=== PATIENT | female | born 1935 | race Caucasian/White ===

== ENCOUNTER → 2017-09-30 12:48 | Outpatient (CLI) | payer MEDICARE, SELFPAY ==
--- NOTE | 2017-09-30 | DI.MG.S_ITS ---
BILATERAL DIGITAL SCREENING MAMMOGRAM 3D/2D WITH CAD: 09/30/2017 CLINICAL: Routine screening. Comparison is made to exams dated: 09/05/2016 mammogram, 09/05/2015 mammogram - [facility], and 10/25/2013 mammogram - [facility]. There are scattered fibroglandular elements in both breasts. Current study was also evaluated with a Computer Aided Detection (CAD) system. There is possible architectural distortion in the left breast upper outer aspect middle depth. No other significant masses, calcifications, or other findings are seen in either breast. IMPRESSION: INCOMPLETE: NEEDS ADDITIONAL IMAGING EVALUATION The possible architectural distortion in the left breast is indeterminate. Additional views with possible ultrasound are recommended. This exam was interpreted at Station ID: [id number]. NOTE: For mammograms, a report in lay terms will be sent to the patient. Approximately 15% of breast malignancies will not be visualized mammographically. In the management of a palpable breast mass, a negative mammogram must not discourage biopsy of a clinically suspicious lesion. Electronically Signed By: Cayetano bose/jemma:09/30/2017 19:12:49 letter sent: Additional Imaging Needed ACR BI-RADS Category 0: Incomplete 3340F
== END ==
PROVIDERS: PCP Family Medicine; Visit Provider Family Medicine
DX: Z12.31 Encounter for screening mammogram for malignant neoplasm of breast (principal)
CPT/HCPCS: 77063; 77067

== ENCOUNTER → 2017-10-20 12:45 | Outpatient (CLI) | payer MEDICARE, SELFPAY ==
--- NOTE | 2017-10-20 12:47 | DI.MG.S_ITS ---
UNILATERAL LEFT DIGITAL DIAGNOSTIC MAMMOGRAM 3D/2D WITH ADDITIONAL VIEWS: 10/20/2017 CLINICAL: Additional evaluation requested from prior study. Comparison is made to exams dated: 09/30/2017 mammogram, 09/05/2016 mammogram, and 09/05/2015 mammogram - [facility]. There are scattered fibroglandular elements in the left breast. There is a linear scar marker overlying the upper outer aspect of the left breast at middle depth. This appears to directly overly the previously noted possible architectural distortion in the left breast upper outer aspect middle depth seen on screening mammograms. No other significant masses, calcifications, or other findings are seen in the breast. IMPRESSION: INCOMPLETE: NEEDS ADDITIONAL IMAGING EVALUATION Linear scar marker directly overlies the previously noted possible architectual distortion in the left breast upper outer aspect at middle depth; distortion may be secondary to scarring. A targeted ultrasound is recommended and will be performed immediately following this procedure. This exam was interpreted at Station ID: [id number]. NOTE: For mammograms, a report in lay terms will be sent to the patient. Approximately 15% of breast malignancies will not be visualized mammographically. In the management of a palpable breast mass, a negative mammogram must not discourage biopsy of a clinically suspicious lesion. Electronically Signed By: Cayetano Thomas M.D. ecl/:10/20/2017 13:41:23 letter sent: Additional Imaging Needed ACR BI-RADS Category 0: Incomplete 3340F
--- NOTE | 2017-10-20 12:47 | DI.US.S_ITS ---
ULTRASOUND OF LEFT BREAST: 10/20/2017 CLINICAL: Patient returns today to evaluate a focal asymmetry in the left breast. Comparison is made to exams dated: 10/20/2017 mammogram, 09/30/2017 mammogram, 09/05/2016 mammogram, and 09/05/2015 mammogram - [facility]. Real-time and Doppler ultrasound of the left breast were performed. Gavin scale images of the real-time examination were reviewed. There is scarring of the upper outer left breast at the site of the scar marker, correlating with the possible architectural distortion seen on screening mammogram. There is no associated recurrent or persistent mass. There are also irregular serpiginous avascular simple fluid collections in the upper outer left breast, measuring up to 2.2 cm in size. IMPRESSION: BENIGN 1) There is no sonographic evidence of malignancy in the left breast. Return to annual mammogram screening schedule is recommended. 2) Scarring of the upper outer left breast, without focal mass. 3) Irregular avascular serpiginous fluid collections in the upper outer left breast, measuring up to 2.2 cm in size; these may represent cysts or chronic postsurgical seromas. This exam was interpreted at Station ID: [id number]. Electronically Signed By: Cayetano Thomas M.D. ecl/:10/20/2017 14:59:50 letter sent: Clinical Evaluation Ultrasound BI-RADS: 2 Benign
== END ==
PROVIDERS: PCP Family Medicine; Visit Provider Family Medicine
DX: R92.8 Other abnormal and inconclusive findings on diagnostic imaging of breast (principal); L90.5 Scar conditions and fibrosis of skin
CPT/HCPCS: 76642; 77065; G0279

== ENCOUNTER → 2018-06-10 09:39 | Outpatient (CLI) | payer MEDICARE, SELFPAY ==
[2018-06-10 10:51] LABS: Alanine Aminotransferase 28 IU/L (9-52); Albumin 4.5 g/dL (3.5-5.0); Albumin Globulin Ratio 1.9 (1.0-2.8); Alkaline Phosphatase 67 U/L (38-126); Aspartate Aminotransferase 22 IU/L (14-36); BUN Creatinine Ratio 16.3 (6-22); Bilirubin Total 0.4 mg/dL (0.2-1.3); Blood Urea Nitrogen 13 mg/dL (7-17); Calcium 10.2 mg/dL (8.4-10.2); Carbon Dioxide 30 mmol/L (22-32); Chloride 103 mmol/L (98-107); Cholesterol 193 mg/dL (140-199); Estimated Glomerular Filt Rate > 60.0 mL/min (>60); Globulin 2.4 g/dL (1.7-4.1); Glucose 109 mg/dL (80-110); HDL Cholesterol 63 mg/dL (40-60); HEMOLYSIS < 15 (0-50); LDL Cholesterol Calculated 101 mg/dL (<100); Potassium 4.8 mmol/L (3.4-5.1); Sodium 142 mmol/L (137-145); Total Protein 6.9 g/dL (6.3-8.2); Triglycerides 143 mg/dL (35-150)
== END ==
PROVIDERS: PCP Family Medicine; Visit Provider Family Medicine
DX: E78.5 Hyperlipidemia, unspecified (principal); R73.03 Prediabetes; I10 Essential (primary) hypertension
CPT/HCPCS: 36415; 80053; 80061

== ENCOUNTER → 2018-12-30 11:56 | Outpatient (CLI) | payer MEDICARE, SELFPAY ==
--- NOTE | 2018-12-30 | DI.MG.S_ITS ---
BILATERAL DIGITAL SCREENING MAMMOGRAM 3D/2D WITH CAD: 12/30/2018 CLINICAL: Baseline exam. Routine screening. Comparison is made to exams dated: 09/30/2017 mammogram, 09/05/2016 mammogram, and 09/05/2015 mammogram - [facility]. There are scattered fibroglandular elements in both breasts. Current study was also evaluated with a Computer Aided Detection (CAD) system. There is architectural distortion in the left breast at 3 o'clock middle depth. This is more prominent. No other significant masses, calcifications, or other findings are seen in either breast. IMPRESSION: INCOMPLETE: NEEDS ADDITIONAL IMAGING EVALUATION The architectural distortion in the left breast is more prominent but is still favored to represent a previous biopsy and is indeterminate. Scar markers and additional views with possible ultrasound are recommended. This exam was interpreted at Station ID: [id number]. NOTE: For mammograms, a report in lay terms will be sent to the patient. Approximately 15% of breast malignancies will not be visualized mammographically. In the management of a palpable breast mass, a negative mammogram must not discourage biopsy of a clinically suspicious lesion. Electronically Signed By: Patrick Enriquez M.D. aty/:12/30/2018 18:37:29 letter sent: Additional Imaging Needed ACR BI-RADS Category 0: Incomplete 3340F
== END ==
PROVIDERS: PCP Family Medicine; Visit Provider Family Medicine
DX: Z12.31 Encounter for screening mammogram for malignant neoplasm of breast (principal)
CPT/HCPCS: 77063; 77067

== ENCOUNTER → 2019-01-19 14:14 | Outpatient (CLI) | payer MEDICARE, SELFPAY ==
--- NOTE | 2019-01-19 14:24 | DI.MG.S_ITS ---
UNILATERAL LEFT DIGITAL DIAGNOSTIC MAMMOGRAM 3D/2D WITH ADDITIONAL VIEWS: 01/19/2019 CLINICAL: Additional evaluation requested from prior study. Comparison is made to exams dated: 12/30/2018 mammogram, 10/20/2017 mammogram, and 09/05/2016 mammogram - [facility]. There are scattered fibroglandular elements in left breast. There is a stable architectural distortion in the left breast at 3 o'clock middle depth when compared with prior diagnostic mammographic views. No other significant masses or calcifications are seen in the breast. IMPRESSION: The stable architectural distortion in the left breast is consistent with a previous biopsy site and is benign. There is no mammographic evidence of malignancy. A 1 year screening mammogram is recommended. This exam was interpreted at Station ID: [id number]. NOTE: For mammograms, a report in lay terms will be sent to the patient. Approximately 15% of breast malignancies will not be visualized mammographically. In the management of a palpable breast mass, a negative mammogram must not discourage biopsy of a clinically suspicious lesion. Electronically Signed By: Donna Olsen M.D. lk/:01/19/2019 15:45:10 letter sent: Normal Exam ACR BI-RADS Category 2: Benign Finding(s) 3342F
== END ==
PROVIDERS: PCP Family Medicine; Visit Provider Family Medicine
DX: R92.8 Other abnormal and inconclusive findings on diagnostic imaging of breast (principal)
CPT/HCPCS: 77065; G0279

== ENCOUNTER → 2019-02-16 11:03 | Outpatient (CLI) | payer MEDICARE, SELFPAY ==
[2019-02-16 12:45] LABS: Alanine Aminotransferase 16 IU/L (<35); Albumin 4.5 g/dL (3.5-5.0); Albumin Globulin Ratio 1.9 (1.0-2.8); Alkaline Phosphatase 77 U/L (38-126); Aspartate Aminotransferase 24 IU/L (14-36); BUN Creatinine Ratio 17.1 (6-22); Bilirubin Total 0.5 mg/dL (0.2-1.3); Blood Urea Nitrogen 12 mg/dL (7-17); Calcium 10.4 mg/dL (8.4-10.2); Carbon Dioxide 31 mmol/L (22-32); Chloride 103 mmol/L (98-107); Estimated Glomerular Filt Rate > 60.0 mL/min (>60); Globulin 2.4 g/dL (1.7-4.1); Glucose 86 mg/dL (80-110); HEMOLYSIS < 15 (0-50); Potassium 4.7 mmol/L (3.4-5.1); Sodium 143 mmol/L (137-145); Total Protein 6.9 g/dL (6.3-8.2)
[2019-02-16 13:32] LABS: Vitamin B12 835 pg/mL (239-931)
[2019-02-18 16:39] LABS: Homocysteine 12.7 umol/L (< 10.4)
[2019-02-21 04:00] LABS: Methylmalonic Acid 287 nmol/L (87-318)
== END ==
PROVIDERS: PCP Family Medicine; Visit Provider Family Medicine
DX: E53.8 Deficiency of other specified B group vitamins (principal); I10 Essential (primary) hypertension; R41.3 Other amnesia
CPT/HCPCS: 36415; 80053; 82607; 83090; 83921

== ENCOUNTER 2019-04-07 13:00 | Outpatient (RCR) | payer MEDICARE, SELFPAY ==
--- NOTE | 2019-03-29 17:30 | PT.OIE ---
Current Diagnoses Benign paroxysmal vertigo, unspecified ear (03/29/19) Dizziness and giddiness (03/29/19) Past Medical History (Last Reviewed 12/28/18 @ 14:18 by ASAD Chow) Basal cell carcinoma of skin (Resolved ~2010) Chickenpox (Resolved) Dementia (Chronic ~2010) Glaucoma (Resolved) Hearing loss (Chronic) Hyperlipidemia (Chronic) Measles (Resolved) Melanoma of nose (Resolved ~2010) Memory loss Mumps (Resolved) Obstructive sleep apnea of adult (Chronic) Snoring (Chronic) Vision abnormalities (Chronic) Past Surgical History (Last Reviewed 12/28/18 @ 14:18 by ASAD Chow) Anesthesia (Inactive) History of lumpectomy (~1999) Mohs defect of nose (Resolved ~2010) Status post hysterectomy (~1977) Visit Care Team Role Provider Type Jayna Cardona DO Attending Provider Physician Primary Care Provider Specialty: [facility] Address: [address] [place] [address], [address], [facility] Email: [email or web address] Physical Therapy Initial Evaluation PT-OP-A Visit Information Start: 03/29/19 17:46 Freq: Status: Active Protocol: Document 03/29/19 16:45 DCW (Rec: 03/29/19 18:01 DCW [id number]) Out-Patient Physical Therapy Visit Information Visit Information Visit Type Initial Evaluation Visit Start Time 16:45 Visit Stop Time 17:35 Total Visit Minutes 50 Visit Number 1 Number of PEDIATRIC ANESTHESIOLOGIST Visits 0 Evaluation Information Evaluation Date 03/29/19 PT-OP-B Current Condition Start: 03/29/19 17:46 Freq: Status: Active Protocol: Document 03/29/19 16:45 DCW (Rec: 03/29/19 18:01 DCW [id number]) Current Condition History of Current Condition Onset Date a few weeks Current Complaints Twirlies with positional changes History of Current Condition Pt is an 83 year old female complaining of a few month history of motion-induced vertigo. Pt reports episodes last a few minutes. Symptoms are provoked by changing positions, like getting up in bed and getting to the bathroom, or lying back in bed . Pt denies recent hearing changes, tinnitus, diplopia, dysarthria, discoordination. Pt reports symptoms are waxing /waning in nature. Pt denies hx of diabetes, arrhythmia, head trauma, seizure, migraines, back/neck problems, CVA, or excessive smoking or drinking. Pt does suffer from Alzheimer's disease, and her helped answer many of her questions. Pt also has a very hard time describing her symptoms due to mild confusion and memory loss. Pt and her also describe a different incident where she was eating dinner with her daughter and son-in-law, and she experienced an episode of poorly described symptoms just sitting at the table, she may have had a syncopal or pre- syncopal event, or just been dizzy, and leaned over in her chair, without going to the floor. Unclear if pt actually had LOC. PT-OP-C Subjective Start: 03/29/19 17:46 Freq: Status: Active Protocol: Document 03/29/19 16:45 DCW (Rec: 03/29/19 18:01 [facility] [id number]) OP-PT Subjective Patient Comments Patient Comments I don't know, I think I'm better now, I don't really know if I've had any dizziness the past few days. Patient Reported Progress Improving Patient Questionnaires Dizziness Handicap Inventory DHI Score 52% DHI Functional Impairment 40 to 59% Impaired (Score 40- 59) OP-PT Pain Assessment Pain Assessment Grid Paper Pain Assessment Grid Completed N/A PT-OP-O Vestibular Start: 03/29/19 17:46 Freq: Status: Active Protocol: Document 03/29/19 16:45 DCW (Rec: 03/29/19 18:01 [facility] [id number]) Vestibular Assessment Screening Tests Vestibular Artery Screen Negative Auditory Tests Ocampo Test Negative Rinne Test Negative Air Conduction Results Equal Visual Testing Smooth Pursuits Horizontal WNL Smooth Pursuits Vertical WNL Saccades Horizontal WNL Gaze Evoked Nystagmus With Fixation Negative Gaze Evoked Nystagmus Without Fixation Negative Heave Test Positive Bilateral Thrust Head Positive Bilateral Positional Testing Era-Hallpike Positive Left,Positive Right,< 60 Seconds Comments Vestibular Comments Pt complained of vague symptoms in Era-Hallpike position bilaterally, with right being much more severe than left. No nystagmus noted with her symptoms. Pt reported dizziness faded -66 seconds PT-OP-Q Treatments Start: 03/29/19 17:46 Freq: Status: Active Protocol: Document 03/29/19 16:45 DCW (Rec: 03/30/19 09:39 DCW [id number]) Canalithic Repositioning BPPV Treatment Robe Affected Canal(s) Right posterior PT-OP-T Assessment and Plan Start: 03/29/19 17:46 Freq: Status: Active Protocol: Document 03/29/19 16:45 DCW (Rec: 03/30/19 09:39 DCW [id number]) Physical Therapy Assessment Rehab Potential Rehabilitation Potential Good Evaluation Complexity Number of Personal Factors/Comorbidities 3 or More Number of Body Systems Impaired 1-2 Clinical Presentation at Evaluation Unstable Impairments Impairments Balance,Functional Mobility, Vestibular Goals Two Impairment Pt has difficulty getting to the bathroom during the night d/t unsteadiness Half-Way Goal (LTG) Pt to demonstrate ability to walk independently to bathroom at night with no sensation of imbalance LTG Duration 04/30/19 One Impairment Pt has periodic episodes of dizziness moving in bed Half-Way Goal (LTG) Pt to report no episodes of dizziness or vertigo with positional changes LTG Duration 04/30/19 Assessment Summary Assessment Pt's vestibular testing today was largely negative, with the exception of mildly positive thrust and heave test bilaterally, which is expected with age-related vestibular loss, and subjective complaints of dizziness in Era -Hallpike position bilaterally , although there was no associated nystagmus. Her right-sided testing with substantially worse than her left with her subjective complaints. Pt's verbal history is fairly suggestive of BPPV, and since some patients are able to subconsciously suppress nystagmus, pt underwent treatment for BPPV. As the posterior canal is by far much more likely to be affected with positional vertigo, pt underwent a right Robe maneuver. Due to pt's Alzheimer's disease, her reporting and description of symptoms were somewhat confusing and unreliable. Pt and her were educated on BPPV, expectations for treatment, possible recurrence (BPPV has a ~50% recurrence rate in the five years following treatment), and post -Robe restrictions. Pt to return in ~1 week for a follow -up appointment, and intermittently afterward as indicated for treatment of BPPV. Physical Therapy Plan Frequency and Duration Frequency of Treatment 2x/Week Duration of Treatment 8 weeks Plan of Care Start Date 03/29/19 Plan of Care End Date 05/24/19 Therapeutic Interventions Therapeutic Interventions Balance Training,Canalithic Repositioning,Therapeutic Exercises,Vestibular Rehabilitation Next Visit Focus/Plan Next Note Type Treatment Note Next Visit Plan Further positional testing, CRM as indicated, balance training as needed
--- NOTE | 2019-03-29 17:30 | PT.OPPOC ---
Physical, Occupational & Speech Therapy At [facility] Current Diagnoses Benign paroxysmal vertigo, unspecified ear (03/29/19) Dizziness and giddiness (03/29/19) Visit Care Team Role Provider Type Jayna Cardona DO Attending Provider Physician Primary Care Provider Specialty: [facility] Address: [address] [place] [address], [address], [facility] Email: [email or web address] Plan Of Care PT-OP-T Assessment and Plan Start: 03/29/19 17:46 Freq: Status: Active Protocol: Document 03/29/19 16:45 DCW (Rec: 03/30/19 09:39 DCW [id number]) Physical Therapy Assessment Rehab Potential Rehabilitation Potential Good Evaluation Complexity Number of Personal Factors/Comorbidities 3 or More Number of Body Systems Impaired 1-2 Clinical Presentation at Evaluation Unstable Impairments Impairments Balance,Functional Mobility, Vestibular Goals Two Impairment Pt has difficulty getting to the bathroom during the night d/t unsteadiness [facility] Goal (LTG) Pt to demonstrate ability to walk independently to bathroom at night with no sensation of imbalance LTG Duration 04/30/19 One Impairment Pt has periodic episodes of dizziness moving in bed [facility] Goal (LTG) Pt to report no episodes of dizziness or vertigo with positional changes LTG Duration 04/30/19 Assessment Summary Assessment Pt's vestibular testing today was largely negative, with the exception of mildly positive thrust and heave test bilaterally, which is expected with age-related vestibular loss, and subjective complaints of dizziness in Norberto -Hallpike position bilaterally , although there was no associated nystagmus. Her right-sided testing with substantially worse than her left with her subjective complaints. Pt's verbal history is fairly suggestive of BPPV, and since some patients are able to subconsciously suppress nystagmus, pt underwent treatment for BPPV. As the posterior canal is by far much more likely to be affected with positional vertigo, pt underwent a right Robe maneuver. Due to pt's Alzheimer's disease, her reporting and description of symptoms were somewhat confusing and unreliable. Pt and her were educated on BPPV, expectations for treatment, possible recurrence (BPPV has a ~50% recurrence rate in the five years following treatment), and post -Robe restrictions. Pt to return in ~1 week for a follow -up appointment, and intermittently afterward as indicated for treatment of BPPV. Physical Therapy Plan Frequency and Duration Frequency of Treatment 2x/Week Duration of Treatment 8 weeks Plan of Care Start Date 03/29/19 Plan of Care End Date 05/24/19 Therapeutic Interventions Therapeutic Interventions Balance Training,Canalithic Repositioning,Therapeutic Exercises,Vestibular Rehabilitation Next Visit Focus/Plan Next Note Type Treatment Note Next Visit Plan Further positional testing, CRM as indicated, balance training as needed Plan of Care Dates Plan of Care Start Date 03/29/19 Plan of Care End Date 05/24/19 Electronically Signed by: Jose Ramon Cervantes, PT 03/30/19 0941 Please Sign and Return: I have reviewed this Plan of Care and certify that the skilled therapy services above are required to meet the patient?s needs. Physician Signature Date Printed Name and Credentials Clinical Instructor Signature Printed Name and Credentials
--- NOTE | 2019-04-05 13:00 | PT.OTN ---
Current Diagnoses Benign paroxysmal vertigo, unspecified ear (04/05/19) Dizziness and giddiness (04/05/19) Physical Therapy Treatment Note PT-OP-A Visit Information Start: 03/29/19 17:46 Freq: Status: Active Protocol: Document 04/05/19 13:00 DLM (Rec: 04/05/19 14:07 DLM [id number]) Out-Patient Physical Therapy Visit Information Visit Information Visit Type Treatment Note Visit Start Time 13:00 Visit Stop Time 13:46 Total Visit Minutes 46 Visit Number 2 Number of SUPERVISORY AIDE Visits 0 Evaluation Information Evaluation Date 03/29/19 PT-OP-B Current Condition Start: 03/29/19 17:46 Freq: Status: Active Protocol: Document 03/29/19 16:45 DCW (Rec: 03/29/19 18:01 DCW [id number]) Current Condition History of Current Condition Onset Date a few weeks Current Complaints Twirlies with positional changes History of Current Condition Pt is an 83 year old female complaining of a few month history of motion-induced vertigo. Pt reports episodes last a few minutes. Symptoms are provoked by changing positions, like getting up in bed and getting to the bathroom, or lying back in bed . Pt denies recent hearing changes, tinnitus, diplopia, dysarthria, discoordination. Pt reports symptoms are waxing /waning in nature. Pt denies hx of diabetes, arrhythmia, head trauma, seizure, migraines, back/neck problems, CVA, or excessive smoking or drinking. Pt does suffer from Alzheimer's disease, and her helped answer many of her questions. Pt also has a very hard time describing her symptoms due to mild confusion and memory loss. Pt and her also describe a different incident where she was eating dinner with her daughter and son-in-law, and she experienced an episode of poorly described symptoms just sitting at the table, she may have had a syncopal or pre- syncopal event, or just been dizzy, and leaned over in her chair, without going to the floor. Unclear if pt actually had LOC. PT-OP-C Subjective Start: 03/29/19 17:46 Freq: Status: Active Protocol: Document 04/05/19 13:00 DLM (Rec: 04/05/19 14:07 DLM [id number]) OP-PT Subjective Patient Comments Patient Comments Pt reports her swirling is better. Her Daughter reports she still had dizziness in bed before getting up. No difficulties reported after last visit. Pt describes feeling weak today. Her Daughter asks if there are some exercises she can do at home. Patient Reported Progress Improving PT-OP-O Vestibular Start: 03/29/19 17:46 Freq: Status: Active Protocol: Document 03/29/19 16:45 DCW (Rec: 03/29/19 18:01 DCW [id number]) Vestibular Assessment Screening Tests Vestibular Artery Screen Negative Auditory Tests Ocampo Test Negative Rinne Test Negative Air Conduction Results Equal Visual Testing Smooth Pursuits Horizontal WNL Smooth Pursuits Vertical WNL Saccades Horizontal WNL Gaze Evoked Nystagmus With Fixation Negative Gaze Evoked Nystagmus Without Fixation Negative Heave Test Positive Bilateral Thrust Head Positive Bilateral Positional Testing Squires-Hallpike Positive Left,Positive Right,< 60 Seconds Comments Vestibular Comments Pt complained of vague symptoms in Squires-Hallpike position bilaterally, with right being much more severe than left. No nystagmus noted with her symptoms. Pt reported dizziness faded -41 seconds PT-OP-Q Treatments Start: 03/29/19 17:46 Freq: Status: Active Protocol: Document 04/05/19 13:00 DLM (Rec: 04/05/19 14:07 DL [id number]) Therapeutic Exercises Sitting Exercises Shoulder Flexion Side bilateral Reps/Minutes x 10 reps each Marching Side bilateral Reps/Minutes x 10 reps each Knee Extension Side bilateral Reps/Minutes x 10 reps each Ankle Pumps Side bilateral Reps/Minutes 10 reps each Canalithic Repositioning BPPV Treatment Semont Affected Canal(s) right horizontal Reps 1 Robe Affected Canal(s) Right posterior Reps 2 PT-OP-T Assessment and Plan Start: 03/29/19 17:46 Freq: Status: Active Protocol: Document 04/05/19 13:00 DLM (Rec: 04/05/19 14:07 DL [id number]) Physical Therapy Assessment Impairments Impairments Balance,Functional Mobility, Vestibular Goals Two Impairment Pt has difficulty getting to the bathroom during the night d/t unsteadiness [facility]iary Goal (LTG) Pt to demonstrate ability to walk independently to bathroom at night with no sensation of imbalance LTG Duration 04/30/19 One Impairment Pt has periodic episodes of dizziness moving in bed [facility]itentiary Goal (LTG) Pt to report no episodes of dizziness or vertigo with positional changes LTG Duration 04/30/19 Progress Towards Goals Progress Towards Goals Progressing Toward Goals Assessment Summary Assessment 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 Pt reports having symptoms less often at home. She also had dizziness with nystagmus right sit to sidelying today and none with left sit to sidelying. She tolerated treatment well with short rest breaks. She could benefit from starting seated exercises at home to increase her activity without increasing her fall risk. Her Daughter reports they purchased a 4WW for her but have not assembled it yet. They also purchased a treadmill but are waiting for patients Son to visit to assemble it. Pt presents with mild decreased balance when ambulating out of therapy this visit which appears related to her vestibular treatment. Will need to retest for BPPV next visit. Physical Therapy Plan Frequency and Duration Frequency of Treatment 2x/Week Duration of Treatment 8 weeks Plan of Care Start Date 03/29/19 Plan of Care End Date 05/24/19 Therapeutic Interventions Therapeutic Interventions Balance Training,Canalithic Repositioning,Therapeutic Exercises,Vestibular Rehabilitation Next Visit Focus/Plan Next Note Type Treatment Note Next Visit Plan continue vestibular rehab, add balance training as tolerated
--- NOTE | 2019-04-07 13:00 | PT.OTN ---
Current Diagnoses Benign paroxysmal vertigo, unspecified ear (04/07/19) Dizziness and giddiness (04/07/19) Physical Therapy Treatment Note PT-OP-A Visit Information Start: 03/29/19 17:46 Freq: Status: Active Protocol: Document 04/07/19 13:00 DLM (Rec: 04/07/19 18:10 DLM [id number]) Out-Patient Physical Therapy Visit Information Visit Information Visit Type Treatment Note Visit Start Time 13:00 Visit Stop Time 13:44 Total Visit Minutes 44 Visit Number 3 Number of COMPENSATION PROGRAMS MANAGER Visits 0 Evaluation Information Evaluation Date 03/29/19 Precautions Precautions Cognitive impairments PT-OP-B Current Condition Start: 03/29/19 17:46 Freq: Status: Active Protocol: Document 03/29/19 16:45 DCW (Rec: 03/29/19 18:01 DCW [id number]) Current Condition History of Current Condition Onset Date a few weeks Current Complaints Twirlies with positional changes History of Current Condition Pt is an 83 year old female complaining of a few month history of motion-induced vertigo. Pt reports episodes last a few minutes. Symptoms are provoked by changing positions, like getting up in bed and getting to the bathroom, or lying back in bed . Pt denies recent hearing changes, tinnitus, diplopia, dysarthria, discoordination. Pt reports symptoms are waxing /waning in nature. Pt denies hx of diabetes, arrhythmia, head trauma, seizure, migraines, back/neck problems, CVA, or excessive smoking or drinking. Pt does suffer from Alzheimer's disease, and her helped answer many of her questions. Pt also has a very hard time describing her symptoms due to mild confusion and memory loss. Pt and her also describe a different incident where she was eating dinner with her daughter and son-in-law, and she experienced an episode of poorly described symptoms just sitting at the table, she may have had a syncopal or pre- syncopal event, or just been dizzy, and leaned over in her chair, without going to the floor. Unclear if pt actually had LOC. PT-OP-C Subjective Start: 03/29/19 17:46 Freq: Status: Active Protocol: Document 04/07/19 13:00 DLM (Rec: 04/07/19 18:10 DLM [id number]) OP-PT Subjective Patient Comments Patient Comments She reports no twirling today. She c/o feeling tired. Her Spouse reports she has been tired a lot lately. Yesterday she was less steady walking and needed hand hold assist to walk in the house. She is walking better today. Patient Reported Progress Improving PT-OP-O Vestibular Start: 03/29/19 17:46 Freq: Status: Active Protocol: Document 04/07/19 13:00 DLM (Rec: 04/07/19 18:10 DLM [id number]) Vestibular Assessment Positional Testing [place]-Hallpike Negative Left,Negative Right Sidelying Test Negative Left,Negative Right Comments Vestibular Comments mild dizziness reported during testing but no spinning and no nystagmus observed PT-OP-Q Treatments Start: 03/29/19 17:46 Freq: Status: Active Protocol: Document 04/07/19 13:00 DLM (Rec: 04/07/19 18:10 DLM [id number]) Therapeutic Exercises Sitting Exercises Shoulder Flexion Side bilateral Reps/Minutes x 10 reps each Marching Side bilateral Reps/Minutes x 10 reps each Knee Extension Side bilateral Reps/Minutes x 10 reps each Ankle Pumps Side bilateral Reps/Minutes 10 reps each Canalithic Repositioning BPPV Treatment [place] Affected Canal(s) right horizontal, left horizontal Reps 1 each Robe Affected Canal(s) right posterior, left posterior Reps 1 each Comments modified over pillows PT-OP-T Assessment and Plan Start: 03/29/19 17:46 Freq: Status: Active Protocol: Document 04/07/19 13:00 DLM (Rec: 04/07/19 18:10 DLM [id number]) Physical Therapy Assessment Other Concerns Fall Risk needs SBA or assist throughout visit Age Related Concerns fall risk, cognitive deficits, She has Spouse or other family member with her each visit Goals Two Impairment Pt has difficulty getting to the bathroom during the night d/t unsteadiness Dye Mixer Goal (LTG) Pt to demonstrate ability to walk independently to bathroom at night with no sensation of imbalance LTG Duration 04/30/19 One Impairment Pt has periodic episodes of dizziness moving in bed Dye Mixer Goal (LTG) Pt to report no episodes of dizziness or vertigo with positional changes LTG Duration 04/30/19 Progress Towards Goals Progress Towards Goals Progressing Toward Goals Assessment Summary Assessment Her dizziness is improved this visit. BPPV testing is negative and improved from last visit. Family reports her ability to walk has been varying at home. They plan to start sitting ex at home but pt does not typically like to exercise at home. Spouse reports plan for cardiac testing in near future. Pt has no other appointments scheduled at this time. Her Spouse reports they want to follow-up with primary care physician and monitor her dizziness before deciding on more appointments. Requested he call to inform us if they want to discharge PT. She has tolerated vestibular repositioning well. She could benefit from more balance retraining. Physical Therapy Plan Frequency and Duration Frequency of Treatment 2x/Week Duration of Treatment 8 weeks Plan of Care Start Date 03/29/19 Plan of Care End Date 05/24/19 Therapeutic Interventions Therapeutic Interventions Balance Training,Canalithic Repositioning,Therapeutic Exercises,Vestibular Rehabilitation Next Visit Focus/Plan Next Note Type Treatment Note Next Visit Plan her Spouse to call after follow-up with physician, discharge if dizziness has not returned, resume treatment if dizziness re-occurs, pt could also return for more balance training is desired by family
--- NOTE | 2019-09-16 08:30 | PT.OPDS ---
Current Diagnoses Benign paroxysmal vertigo, unspecified ear (04/07/19) Visit Care Team Role Provider Type Jayna Cardona DO Attending Provider Physician Primary Care Provider Specialty: [facility] Address: [address] [place] [address], [facility] [address], [place], [facility] Email: [email or web address] Visit Number Visit Number 3 Discharge Summary PT-OP-B Current Condition Start: 03/29/19 17:46 Freq: Status: Active Protocol: Document 03/29/19 16:45 DCW (Rec: 03/29/19 18:01 DCW [id number]) Current Condition History of Current Condition Onset Date a few weeks Current Complaints Twirlies with positional changes History of Current Condition Pt is an 83 year old female complaining of a few month history of motion-induced vertigo. Pt reports episodes last a few minutes. Symptoms are provoked by changing positions, like getting up in bed and getting to the bathroom, or lying back in bed . Pt denies recent hearing changes, tinnitus, diplopia, dysarthria, discoordination. Pt reports symptoms are waxing /waning in nature. Pt denies hx of diabetes, arrhythmia, head trauma, seizure, migraines, back/neck problems, CVA, or excessive smoking or drinking. Pt does suffer from Alzheimer's disease, and her helped answer many of her questions. Pt also has a very hard time describing her symptoms due to mild confusion and memory loss. Pt and her also describe a different incident where she was eating dinner with her daughter and son-in-law, and she experienced an episode of poorly described symptoms just sitting at the table, she may have had a syncopal or pre- syncopal event, or just been dizzy, and leaned over in her chair, without going to the floor. Unclear if pt actually had LOC. PT-OP-C Subjective Start: 03/29/19 17:46 Freq: Status: Active Protocol: Document 04/07/19 13:00 DLM (Rec: 04/07/19 18:10 DLM [id number]) OP-PT Subjective Patient Comments Patient Comments She reports no twirling today. She c/o feeling tired. Her Spouse reports she has been tired a lot lately. Yesturday she was less steady walking and needed hand hold assist to walk in the house. She is walking better today. Patient Reported Progress Improving PT-OP-O Vestibular Start: 03/29/19 17:46 Freq: Status: Active Protocol: Document 04/07/19 13:00 DLM (Rec: 04/07/19 18:10 DLM [id number]) Vestibular Assessment Positional Testing [place]-Hallpike Negative Left,Negative Right Sidelying Test Negative Left,Negative Right Comments Vestibular Comments mild dizziness reported during testing but no spinning and no nystagmus observed PT-OP-T Assessment and Plan Start: 03/29/19 17:46 Freq: Status: Active Protocol: Document 09/16/19 08:28 DCW (Rec: 09/16/19 08:29 DCW [id number]) Physical Therapy Assessment Assessment Summary Assessment Pt has not been seen in five months, was doing well at her last visit, no longer had ongoing complaints of positional dizziness. Pt will be discharged from skilled PT at this time. Physical Therapy Plan Discharge Physical Therapy Discharge Reasons No Longer Attending PT Next Visit Focus/Plan Next Note Type Discharge Summary
== END 2019-09-16 13:03 ==
LOC: PHYS 13:00
PROVIDERS: PCP Family Medicine; Visit Provider Family Medicine
DX: H81.10 Benign paroxysmal vertigo, unspecified ear (principal)
CPT/HCPCS: 95992; 97110; 97161

== ENCOUNTER → 2019-04-14 10:32 | Outpatient (CLI) | payer MEDICARE, SELFPAY ==
--- NOTE | 2019-04-29 16:07 | PM.CARDMON.1 ---
Filament Coil Winder Report Referral & Results Date Patient Seen: 04/14/19 Requesting provider: Jayna Cardona Indication: Syncope Duration of monitoring (days): 7 Diary information: There were 3 patient triggered events and 2 patient diary entries These events were associated with sinus rhythm, ventricular bigeminy, PVCs, and atrial fibrillation Data: Minimum heart rate identified was 44 beats per minute at 03:11 on 04/16/2019 Maximum sinus heart rate was 119 beats per minute at 14:18 on 04/20/2019 Maximum overall heart rate was 242 beats per minute at 01:59 on 04/17/2019 during a run of atrial fibrillation Less than 1% of identified beats were supraventricular ectopic in origin Approximately 21% of identified beats were ventricular ectopic in origin including a 3 minutes run of ventricular trigeminy Less than 2% of identified beats occurred during atrial fibrillation. Rate during atrial fibrillation range from 102 beats per minute to 242 beats per minute. The longest run of atrial fibrillation lasted 1 hour 45 minutes There is also a single 5 beat run of ventricular tachycardia Impression: 7 day threat monitoring analyst showing episodes of atrial fibrillation as above. Also some significant ventricular dysrhythmias as above with frequent PVCs and 1 run of ventricular tachycardia at 5 beats Clinical correlation suggested
== END ==
PROVIDERS: PCP Family Medicine; Referring Provider Family Medicine; Visit Provider Family Medicine
DX: R55 Syncope and collapse (principal)
CPT/HCPCS: 0296T; 0298T

== ENCOUNTER → 2019-04-29 13:21 | Outpatient (CLI) | payer MEDICARE, SELFPAY ==
[2019-04-29 14:35] LABS: Add Manual Diff / Slide Review NO; Basophils Absolute Auto 0 /uL (0-100); Basophils Percent Auto 0.4 % (0-2); Eosinophils Absolute Auto 100 /uL (0-450); Lymphocytes Absolute Auto 800 /uL (1100-4500); Lymphocytes Percent Auto 13.7 % (25-40); Mean Corpuscular HGB Conc 34.2 % (30-36); Mean Corpuscular Volume 90.7 fL (80-100); Monocytes Absolute Auto 400 /uL (0-900); Monocytes Percent Auto 6.7 % (3-14); Neutrophils Absolute Auto 4700 /uL (1500-7000); Neutrophils Percent Auto 78.2 % (50-75); Platelet Count 219 X10^3/uL (150-400); Red Blood Cell Count 4.85 X10^6/uL (4.0-5.2); Red Cell Distribution Width 13.4 % (11.6-14.8)
[2019-04-29 14:49] LABS: BUN Creatinine Ratio 18.8 (6-22); Blood Urea Nitrogen 15 mg/dL (7-17); Calcium 9.5 mg/dL (8.4-10.2); Carbon Dioxide 28 mmol/L (22-32); Chloride 101 mmol/L (98-107); Estimated Glomerular Filt Rate > 60.0 mL/min (>60); Glucose 110 mg/dL (80-110); HEMOLYSIS < 15 (0-50); Potassium 3.2 mmol/L (3.4-5.1); Sodium 140 mmol/L (137-145)
[2019-04-29 14:54] LABS: Appearance Urine UA SL CLOUDY; Bilirubin Urine UA NEGATIVE (NEGATIVE); Color Urine UA YELLOW; Glucose Urine UA NEGATIVE (Negative); Ketones Urine UA TRACE (NEGATIVE); Leukocyte Esterase Urine UA 1+ (NEGATIVE); Nitrite Urine UA NEGATIVE (Negative); Occult Blood Urine UA 1+ (Negative); Protein Urine UA TRACE (Negative); Urobilinogen Urine UA 0.2 E.U./dL (0.2)
[2019-04-29 14:56] LABS: pH Urine UA 5.5 (4.5-8.0)
[2019-04-29 15:02] LABS: Bacteria Urine Moderate (10-30); Culture Indicated Urine Cult Not Indicated; Mucus Urine 1+ (Negative); RBC Urine 1-5/HPF (0-5/HPF); Squamous Epithelial Cell Urine 10-30 /HPF (0-5/HPF); WBC Urine 5-10/HPF (0-5/HPF)
== END ==
PROVIDERS: PCP Family Medicine; Referring Provider Family Medicine; Visit Provider Family Medicine
DX: I10 Essential (primary) hypertension (principal); R55 Syncope and collapse; R58 Hemorrhage, not elsewhere classified; R31.9 Hematuria, unspecified
CPT/HCPCS: 36415; 80048; 81003; 81015; 85025

== ENCOUNTER → 2019-05-25 15:45 | Outpatient (CLI) | payer MEDICARE, SELFPAY ==
--- NOTE | 2019-05-25 16:08 | DI.ECHO.S_ITS ---
Echocardiogram Report + + :Name: HIRA WHITTAKER Study Date: 05/25/2019 Height: 62 in : :[facility] Weight: 135 lb : : Gender: Female BSA: 1.6 m2 : :: 1935 Age: 83 yrs BP: 138/86 mmHg: :Reason For Study: Arrythmia, new onset Afib : :Ordering Physician: Suresh : :Brendan Performed By: Anusha Stern : :Referring: SURESH POTRER : + + Interpretation Summary The left ventricle is normal in size, wall thickness, and systolic function without any focal wall motion abnormalities with the ejection fraction visually estimated to be 60-65%. Diastolic parameters suggest probable normal left ventricular diastolic function and normal filling pressures. The right ventricle grossly appears normal in size with probable normal systolic function. Pulmonary artery pressures cannot be estimated because of the lack of a measurable TR jet velocity. Both atria are normal in size. There is no significant valvular heart disease. There is no pericardial effusion but there is an anterior echo-free space consistent with a pericardial fat pad which is a normal variant. The patient was likely in sinus rhythm with heart rates between 45-71 bpm with frequent ectopy noted throughout exam. Procedure: A two-dimensional transthoracic echocardiogram with color flow and Doppler was performed. The study quality was technically adequate. There is no prior echocardiogram noted for this patient. The subcostal views were difficult to obtain and are suboptimal in quality. The patient was in sinus rhythm with heart rates between 45-71 bpm during the exam. Frequent ectopy noted throughout exam. Left Ventricle: The left ventricle is normal in size, wall thickness, and systolic function without any focal wall motion abnormalities. The ejection fraction is estimated to be 60-65%. Diastolic parameters suggest probable normal left ventricular diastolic function and normal filling pressures. Right Ventricle: The right ventricle grossly appears normal in size with probable normal systolic function. Atria: Both atria are normal in size. There is no Doppler evidence for an interatrial shunt. Mitral Valve: The mitral valve leaflets appear mildly thickened, but open well. There is a flat closure plane of the the mitral valve leaflets. There is trace mitral regurgitation. Aortic Valve: The aortic valve is trileaflet. The aortic valve is slightly calcified. The aortic valve opens well. There is no aortic valve stenosis. There is trace aortic regurgitation. Tricuspid Valve: The tricuspid valve is not well visualized, but is grossly normal. There is trace tricuspid regurgitation. Pulmonary artery pressures cannot be estimated because of the lack of a measurable TR jet velocity. Pulmonic Valve: The pulmonic valve is normal in structure and function. There is trace pulmonic regurgitation. There is no significant valvular heart disease. Great Vessels: The aortic root is normal size. The ascending aorta is normal in size. The inferior vena cava was not visualized. Pericardium/ Pleura There is an anterior echo-free space consistent with a fat pad. There is no pericardial effusion. There is no pleural effusion. MMode/2D Measurements & Calculations LVIDd: 3.8 cm LVOT diam: 2.0 cm LVIDs: 2.3 cm Ao root diam: 2.8 cm FS: 39.3 % asc Aorta Diam: 2.9 cm EPSS: 0.38 cm Ao Arch Diam (Prox Trans): 2.6 cm IVSd: 0.88 cm LVPWd: 0.92 cm LV valle. diameter/BSA (cm/m^2): 2.4 LV sys. diameter/BSA (cm/m^2): 1.4 LA A2 area: 12.0 cm2 RA long axis: 4.5 cm LA A4 area: 13.5 cm2 RA area: 14.4 cm2 LA length (vol): 4.9 cm RA vol: 39.5 ml LA vol: 27.9 ml RA : 24.4 ml/m2 LA vol index: 17.2 ml/m2 RVD1 (basal): 3.2 cm TAPSE: 2.0 cm Doppler Measurements & Calculations Ao V2 max: 136.8 cm/sec LVOT Max Rad: 105.3 cm/sec Ao V2 mean: 81.0 cm/sec LV V1 max P.4 mmHg Ao max P.5 mmHg LV V1 VTI: 27.1 cm Ao mean P.2 mmHg JOHN(I,D): 3.1 cm2 Ao V2 VTI: 27.6 cm JOHN(V,D): 2.5 cm2 sev ratio: 0.98 JOHN indexed to BSA (cm^2/m^2): 1.9 MV E max rad: 76.4 cm/sec TR max rad: 256.1 cm/sec MV A max rad: 108.8 cm/sec TR max P.4 mmHg MV E/A: 0.70 PA V2 max: 72.7 cm/sec Med Peak E' Rad: 6.0 cm/sec PA V2 mean: 48.4 cm/sec E/E' med: 12.7 PA mean P.1 mmHg Lat Peak E' Rad: 7.4 cm/sec E/E' lat: 10.4 E/e' average: 11.6 MV dec time: 0.25 sec MV P1/2t: 73.7 msec MV P1/2t max rad: 78.2 cm/sec SV(LVOT): 87.1 ml MVA(2t): 3.0 cm2 _ Reading Physician:RADHA
== END ==
PROVIDERS: PCP Family Medicine; Referring Provider Family Medicine; Visit Provider Family Medicine
DX: I48.91 Unspecified atrial fibrillation (principal)
CPT/HCPCS: 93306

== ENCOUNTER → 2019-07-14 12:42 | Outpatient (CLI) | payer MEDICARE, SELFPAY ==
[2019-07-14 13:31] LABS: BUN Creatinine Ratio 14.3 (6-22); Blood Urea Nitrogen 10 mg/dL (7-17); Calcium 10.3 mg/dL (8.4-10.2); Carbon Dioxide 28 mmol/L (22-32); Chloride 99 mmol/L (98-107); Estimated Glomerular Filt Rate > 60.0 mL/min (>60); Glucose 102 mg/dL (80-110); HEMOLYSIS < 15 (0-50); Magnesium 1.8 mg/dL (1.6-2.3); Potassium 4.5 mmol/L (3.4-5.1); Sodium 137 mmol/L (137-145)
== END ==
PROVIDERS: PCP Family Medicine; Referring Provider Family Medicine; Visit Provider Family Medicine
DX: E87.6 Hypokalemia (principal); I10 Essential (primary) hypertension
CPT/HCPCS: 36415; 80048; 83735

== ENCOUNTER → 2019-08-11 17:12 | Outpatient (CLI) | payer MEDICARE, SELFPAY ==
[2019-08-11 18:07] LABS: Alanine Aminotransferase 15 IU/L (<35); Albumin 4.5 g/dL (3.5-5.0); Albumin Globulin Ratio 1.6 (1.0-2.8); Alkaline Phosphatase 74 U/L (38-126); Aspartate Aminotransferase 22 IU/L (14-36); BUN Creatinine Ratio 17.9 (6-22); Bilirubin Total 0.3 mg/dL (0.2-1.3); Blood Urea Nitrogen 15 mg/dL (7-17); Calcium 10.3 mg/dL (8.4-10.2); Carbon Dioxide 31 mmol/L (22-32); Chloride 102 mmol/L (98-107); Estimated Glomerular Filt Rate > 60.0 mL/min (>60); Globulin 2.8 g/dL (1.7-4.1); Glucose 126 mg/dL (80-110); HEMOLYSIS < 15 (0-50); Potassium 3.9 mmol/L (3.4-5.1); Sodium 139 mmol/L (137-145); Total Protein 7.3 g/dL (6.3-8.2)
[2019-08-11 18:38] LABS: Thyroid Stimulating Hormone 1.43 uIU/mL (0.47-4.68)
== END ==
PROVIDERS: PCP Family Medicine; Referring Provider Nurse Practitioner; Visit Provider Nurse Practitioner
DX: I48.0 Paroxysmal atrial fibrillation (principal)
CPT/HCPCS: 36415; 80053; 84443

== ENCOUNTER → 2020-01-25 10:12 | Outpatient (CLI) | payer MEDICARE, SELFPAY ==
--- NOTE | 2020-01-25 | DI.MG.S_ITS ---
BILATERAL DIGITAL SCREENING MAMMOGRAM 3D/2D WITH CAD: 01/25/2020 CLINICAL: Routine screening. Comparison is made to exams dated: 01/19/2019 mammogram, 12/30/2018 mammogram, 10/20/2017 mammogram, 09/30/2017 mammogram, and 09/05/2016 mammogram - [facility]. There are scattered fibroglandular elements in both breasts. Current study was also evaluated with a Computer Aided Detection (CAD) system. There are benign post operative findings in the left breast. No significant masses, calcifications, or other findings are seen in either breast. There has been no significant interval change. IMPRESSION: BENIGN There is no mammographic evidence of malignancy. A 1 year screening mammogram is recommended. This exam was interpreted at Station ID: [id number]. NOTE: For mammograms, a report in lay terms will be sent to the patient. Approximately 15% of breast malignancies will not be visualized mammographically. In the management of a palpable breast mass, a negative mammogram must not discourage biopsy of a clinically suspicious lesion. Electronically Signed By: Donna maravilla/jemma:01/31/2020 12:08:34 letter sent: Normal Exam ACR BI-RADS Category 2: Benign Finding(s) 3342F
== END ==
PROVIDERS: PCP Family Medicine; Referring Provider Family Medicine; Visit Provider Family Medicine
DX: Z12.31 Encounter for screening mammogram for malignant neoplasm of breast (principal)
CPT/HCPCS: 77063; 77067

== ENCOUNTER → 2020-01-30 09:21 | Outpatient (CLI) | payer MEDICARE, SELFPAY ==
[2020-01-30 09:54] LABS: Add Manual Diff / Slide Review NO; Basophils Absolute Auto 0 /uL (0-100); Basophils Percent Auto 0.7 % (0-2); Eosinophils Absolute Auto 100 /uL (0-450); Eosinophils Percent Auto 2.3 % (2-4); Hematocrit 40.8 % (36-46); Hemoglobin 13.6 g/dL (12.0-16.0); Lymphocytes Absolute Auto 1200 /uL (1100-4500); Lymphocytes Percent Auto 18.5 % (25-40); Mean Corpuscular HGB Conc 33.3 % (30-36); Mean Corpuscular Hemoglobin 30.7 PG (26-34); Mean Corpuscular Volume 92.1 fL (80-100); Monocytes Absolute Auto 600 /uL (0-900); Monocytes Percent Auto 9.4 % (3-14); Neutrophils Absolute Auto 4400 /uL (1500-7000); Neutrophils Percent Auto 69.1 % (50-75); Platelet Count 219 X10^3/uL (150-400); Red Blood Cell Count 4.43 X10^6/uL (4.0-5.2); Red Cell Distribution Width 13.6 % (11.6-14.8); White Blood Cell Count 6.3 X10^3/uL (4.5-11.0)
[2020-01-30 10:25] LABS: Alanine Aminotransferase 21 IU/L (<35); Albumin 3.9 g/dL (3.5-5.0); Albumin Globulin Ratio 1.3 (1.0-2.8); Alkaline Phosphatase 69 U/L (38-126); Aspartate Aminotransferase 24 IU/L (14-36); BUN Creatinine Ratio 15.7 (6-22); Bilirubin Total 0.5 mg/dL (0.2-1.3); Blood Urea Nitrogen 13 mg/dL (7-17); Calcium 9.3 mg/dL (8.4-10.2); Carbon Dioxide 32 mmol/L (22-32); Chloride 106 mmol/L (98-107); Cholesterol 177 mg/dL (140-199); Estimated Glomerular Filt Rate > 60.0 mL/min (>60); Globulin 2.9 g/dL (1.7-4.1); Glucose 130 mg/dL (80-110); HDL Cholesterol 60 mg/dL (40-60); HEMOLYSIS < 15 (0-50); LDL Cholesterol Calculated 93 mg/dL (<100); Potassium 3.7 mmol/L (3.4-5.1); Sodium 141 mmol/L (137-145); Total Protein 6.8 g/dL (6.3-8.2); Triglycerides 122 mg/dL (35-150)
[2020-01-30 10:52] LABS: TSH w/ Reflex to FT4 1.34 uIU/mL (0.47-4.68)
[2020-01-30 11:47] LABS: Creatinine Urine Random 82.4 mg/dL
[2020-01-30 11:59] LABS: Microalbumin Urine Random < 0.6 mg/dL (0-1.6)
== END ==
PROVIDERS: PCP Family Medicine; Referring Provider Family Medicine; Visit Provider Family Medicine
DX: I10 Essential (primary) hypertension (principal); R73.03 Prediabetes; E78.5 Hyperlipidemia, unspecified
CPT/HCPCS: 36415; 80053; 80061; 82043; 82570; 84443; 85025

== ENCOUNTER → 2020-03-19 13:35 | Outpatient (CLI) | payer MEDICARE, SELFPAY ==
[2020-03-19 14:10] LABS: Hemoglobin A1C% w Est Avg Glu 6.2 % (4.0-6.0)
== END ==
PROVIDERS: PCP Family Medicine; Referring Provider Family Medicine; Visit Provider Family Medicine
DX: E66.3 Overweight (principal); R73.03 Prediabetes
CPT/HCPCS: 36415; 83036

== ENCOUNTER → 2020-03-30 13:00 | Outpatient (CLI) | payer MEDICARE, SELFPAY ==
[2020-03-30] MEDS: COVID-19 VACC #1, MRNA(MOD) 100 MCG/0.5 ML VIAL IM (13:20)
== END ==
PROVIDERS: PCP Family Medicine; Visit Provider Internal Medicine
DX: Z23 Encounter for immunization (principal)
CPT/HCPCS: 0011A; 91301

== ENCOUNTER → 2020-04-27 12:50 | Outpatient (CLI) | payer MEDICARE, SELFPAY ==
[2020-04-27] MEDS: COVID-19 VACC #2, MRNA(MOD) 100 MCG/0.5 ML VIAL IM (13:00)
== END ==
PROVIDERS: PCP Family Medicine; Visit Provider Internal Medicine
DX: Z23 Encounter for immunization (principal)
CPT/HCPCS: 0012A; 91301

== ENCOUNTER → 2020-06-22 14:57 | Outpatient (CLI) | payer MEDICARE, SELFPAY ==
--- NOTE | 2020-06-22 14:59 | DI.RAD.S_ITS ---
PROCEDURE: XR KNEE RT 3V INDICATIONS: right knee pain TECHNIQUE: 3 views of the knee were acquired. COMPARISON: None. FINDINGS: Bones: No fractures or dislocations. No suspicious bony lesions. Tricompartmental knee joint degeneration, most notably and moderate to severe involving the medial femorotibial and patellofemoral knee joints. Soft tissues: Small joint effusion. No suspicious soft tissue calcifications. IMPRESSION: Tricompartmental knee joint degeneration and small joint effusion. Dictated by: Vance Elizabeth [facility] Interpreted: Sushil Taylor MD on 06/22/2020 at 15:44 Approved by: Sushil Taylor M.D. on 06/22/2020 at 16:04
== END ==
PROVIDERS: PCP Family Medicine; Referring Provider Family Medicine; Visit Provider Family Medicine
DX: M25.561 Pain in right knee (principal); M17.11 Unilateral primary osteoarthritis, right knee; M25.461 Effusion, right knee
CPT/HCPCS: 73562

== ENCOUNTER → 2020-09-04 14:10 | Outpatient (CLI) | payer MEDICARE, SELFPAY ==
[2020-09-04 15:49] LABS: BUN Creatinine Ratio 16.4 (6-22); Blood Urea Nitrogen 12 mg/dL (7-17); Calcium 10.1 mg/dL (8.4-10.2); Carbon Dioxide 28 mmol/L (22-32); Chloride 102 mmol/L (98-107); Estimated Glomerular Filt Rate > 60.0 mL/min (>60); Glucose 95 mg/dL (80-110); HEMOLYSIS < 15 (0-50); Potassium 4.1 mmol/L (3.4-5.1); Sodium 140 mmol/L (137-145)
== END ==
PROVIDERS: Physician Assistant; PCP Family Medicine; Referring Provider Internal Medicine Cardiovascular Disease; Visit Provider Internal Medicine Cardiovascular Disease
DX: I48.0 Paroxysmal atrial fibrillation (principal)
CPT/HCPCS: 36415; 80048

== ENCOUNTER 2020-10-11 12:15 | Outpatient (RCR) | payer MEDICARE, SELFPAY ==
--- NOTE | 2020-10-09 15:59 | PT.OIE ---
Current Diagnoses Unspecified fall, initial encounter (10/09/20) Past Medical History (Last Updated 06/22/20 @ 20:21 by Jayna Cardona DO) Basal cell carcinoma of skin (~2010) Chickenpox Chronic anticoagulation Dementia (~2010) Glaucoma Hearing loss Hyperlipidemia Measles Melanoma of nose (~2010) Memory loss Meningioma Mumps Obstructive sleep apnea of adult Pre-syncope Snoring Vision abnormalities Past Surgical History (Last Reviewed 05/08/20 @ 21:31 by ASAD Liu) Anesthesia History of lumpectomy (~1999) Mohs defect of nose (~2010) Status post hysterectomy (~1977) Visit Care Team Role Provider Type Jayna Cardona DO Attending Provider Physician Family Provider Primary Care Provider Referring Provider Specialty: Family Practice Address: [address] [place] [address], [address], [facility] Email: [email or web address] Physical Therapy Initial Evaluation PT-OP-A Visit Information Start: 10/05/20 10:44 Freq: Status: Active Protocol: Document 10/09/20 13:00 MB (Rec: 10/09/20 13:28 MB [id number]) Out-Patient Physical Therapy Visit Information Visit Information Visit Type Initial Evaluation Visit Note [employer] 03/20 before KX Visit Start Time 13:00 Visit Stop Time 14:00 Total Visit Minutes 60 Visit Number 1 Evaluation Information Evaluation Date 10/09/20 PT-OP-B Current Condition Start: 10/05/20 10:44 Freq: Status: Active Protocol: Document 10/09/20 13:00 MB (Rec: 10/09/20 13:28 [id number]) Current Condition History of Current Condition Onset Date Progressive over several weeks Current Complaints Leg pain, lethargy, decreased mobility History of Current Condition Pt's daughter, Ilsa, arrives with patient. She states that pt's needs have changed since she saw Dr. Cardona. Pt has had three falls in the last two weeks and the EMS has had to come twice to help pt get up. Pt lives with her . She got a rollator and is not using it. It is too fast for her. Pt has dementia. Ilsa is going to her parents twice a week to help for 4 hours and she has caregiver support on Fridays. The caregivers will help with showers, laundry and sheets. Daughter assists with meals and gives caregiver support. She was trying to help the pt with walking and sit to stands and that is not going as well. Her energy level is getting low. She is sleeping late and is not always getting dressed. Daughter reports AD dx 7 years ago, sleep apnea and a-fib. The CPAP has been challenging and she has not been wearing it. When asked, pt reports right knee pain. Dr. Cardona gave pt a shot in her right knee. There are two stairs with 1 rail to get in and out of the house. She holds onto daughter 's arm with gait. They do have a w/c. Her assists pt to BR at night when she needs to toilet. Ilsa states that today is an average day for the patient. Daughter reports that pt is complaining of pain in the belly. No known history of UTI . Ilsa reports progressive decreased ambulation of pt. Four years ago, pt could walk around the block. Pt had 4 sessions of OT in the home last spring. Daughter reports B knee pain d/t arthritis. PT-OP-C Subjective Start: 10/05/20 10:44 Freq: Status: Active Protocol: Document 10/09/20 13:00 MB (Rec: 10/09/20 13:28 MB [id number]) OP-PT Subjective Patient Comments Patient Comments Pt has no comments and daughter, Ilsa, provides all history. PT-OP-D Balance Start: 10/05/20 10:44 Freq: Status: Active Protocol: Document 10/09/20 13:00 MB (Rec: 10/09/20 15:58 MB [id number]) OP-PT Balance Assessment Sitting Balance Static Sitting Balance Ability Good Dynamic Sitting Balance Ability Fair Sitting Balance Comments UE support for MMT sitting edge of mat Standing Balance Static Standing Balance Ability Poor Dynamic Standing Balance Ability Poor Standing Balance Comments Pt reaches for objects, does not seem to process stand up and appears to wait for PT or daughter offering arm to perform moving to standing Balance Tests Other Other Balance Tests Performed LOB with static standing with normal BANDAR, forward, flexed posture Murillo Fall Scale Copyright Permission PT-OP-G Mobility & Gait Start: 10/05/20 10:44 Freq: Status: Active Protocol: Document 10/09/20 13:00 MB (Rec: 10/09/20 15:58 MB [id number]) OP Mobility Evaluation Bed Mobility Rolling Max A to help roll and get positioned well on her back on the mat Supine to and from Sit As above, cues for movement Transfers Sit to Stand Min A and cues OP Gait Assessment Gait Gait Assistance Required: 1 Person Assist Distance (Feet) 65 Assistive Devices Assistive Device None,Front Wheeled Walker Orthotic/Prosthetic Devices or Brace: No Gait Deviations General Gait Pattern Decreased Stride Length, Decreased Feet Clearance, Festinating,Flexed Trunk,Step- to Gait,Wide Based Gait Factors Limiting Gait Function Factors Limiting Gait Function Abnormal Tonal Influences, Decreased Activity Tolerance, Difficulty Following Directions,Incoordination, Limited Range of Motion,Pain, Poor Balance,Poor Safety Awareness Comments Gait Comments Pt sitting in chair in waiting room upon arrival and cannot get up without min A from PT. She holds onto daughter while PT gets RW for pt to try. With walker, she is confused and tends to scuff right toes, has wide BANDAR, does not clear right foot and her gait is festinating and she especially slows down around corner. 50' gait with RW and her pattern does not improve and she does not appear to understand or have recall for how to keep feet inside RW. Cues and min A to help with position and for scooting walker back to plinth before assessment in supine. Next, PT and daughter offer support via arm and pt's gait is pretty similar, with a lot of trouble crossing thresholds and different surface--from casie to carpet, into entrance and outside. PT-OP-J Posture/Palpation/Skin Start: 10/05/20 10:44 Freq: Status: Active Protocol: Document 10/09/20 13:00 MB (Rec: 10/09/20 15:58 MB [id number]) Posture Evaluation Comments Posture Comments Right knee has degenerative appearing changes and looks different that the left. She has mild B LE edema. PT-OP-K Range of Motion Start: 10/05/20 10:44 Freq: Status: Active Protocol: Document 10/09/20 13:00 MB (Rec: 10/09/20 15:58 MB [id number]) Shoulder Goniometric Range of Motion Shoulder ROM Limitations Comments Gross ROM only to pt's tolerance and right shoulder flexion is mildly less than the left Ankle and Foot Goniometric Range of Motion Ankle and Foot ROM Limitations Comments R PF clonus with quick passive DF that is not true on the left, increased tone right ankle PT-OP-M Strength Start: 10/05/20 10:44 Freq: Status: Active Protocol: Document 10/09/20 13:00 MB (Rec: 10/09/20 15:58 MB [id number]) Knee Strength Knee Manual Muscle Testing Bilateral Flexion (S2) 3+ Fair+ Extension (L3) 4 Good Ankle/Foot Strength Ankle and Foot Manual Muscle Testing Left Dorsiflexion (L4) 4 Good Right Dorsiflexion (L4) 3+ Fair+ PT-OP-Q Treatments Start: 10/05/20 10:44 Freq: Status: Active Protocol: Document 10/09/20 13:00 MB (Rec: 10/09/20 15:58 MB [id number]) Gait Training Gait Activity Gait with SUPERVISOR SCREEN MAKING and RW Comments See gait assessment comments for training today--training with RW is not successful today and cognitive limitations are biggest barrier to training Self-Care/Home Management Treatment Education Caregiver Education Ed pt and daughter, Ilsa, in difficulties of teaching AD use in patients with dementia, PT's concerns about pt's right LE weakness, less attention, foot clearance and increased tone, ed daughter to speak with father about pt more likely having difficulty crossing thresholds and when casie changes, to look for any trouble with swallowing ( pt has no trouble drinking water with PT today), signs and symptoms of stroke and risk factors given a-fib and not wearing her CPAP, signs and symptoms of neurodegenerative processes like PD, signs and symptoms of UTI, possible talking with doctor about being screened for depression and possible intervention. Benefits of having pt assessed and treated for BPPV if needed during PT course. PT-OP-T Assessment and Plan Start: 10/05/20 10:44 Freq: Status: Active Protocol: Document 10/09/20 13:00 MB (Rec: 10/09/20 15:58 MB [id number]) Physical Therapy Assessment Rehab Potential Rehabilitation Potential Fair Evaluation Complexity Number of Personal Factors/Comorbidities 3 or More Number of Body Systems Impaired 4 or More Clinical Presentation at Evaluation Unstable Impairments Impairments Activity Tolerance,Balance, Coordination,Edema,Functional Activities,Functional Mobility ,Gait,Pain,Posture,ROM,Soft Tissue Mobility,Strength, Transfers,Vestibular Other Impairments Personal factors include pt presents with dementia, is hypoverbal and requires asst for ADLs and gait. Body systems affected include neurological, cognitive, cardiovascular, orthopedic and vestibular. Her clinical presentation is evolving in setting of a-fib and not wearing CPAP, dementia, ongoing falls, neurological signs today and orthopedic injury. Other Concerns Fall Risk Yes Goals 3 Residential Goal (LTG) Pt and family will demonstrate caregiver I for HEP and any other safety recommendations for mobility and gait to improve safety and decrease BOC by 11/09/20. LTG Duration 4 weeks 2 Residential Goal (LTG) Pt will gait train 75 feet with CGA and LRAD (if able to perform cognitively) to improve mobility and to decrease caregiver burden by . LTG Duration 4 weeks 1 Residential Goal (LTG) Pt will perform transfers with cues to decrease fall risk and caregiver burden by . LTG Duration 4 weeks Assessment Summary Assessment Pt is an 85 y/o female presenting quite debilitated today. She is unable to get out of clinic waiting area chair without assist or walk without assist today. Gait training with RW does not go well and is impeded by cognitive impairment. She has festinating gait pattern with greater weakness on right foot , some right LE inattention and toe drag. This gait presentation is neurological in nature and she also presents with clonus right ankle with rapid passive DF. She requires heavy assist for bed moblity. She reports swirlies with getting up OOB to the left and experiences this with orthostatic testing today with getting up to the left. Her BP does not drop and BP and HR in LUE are: 121/59, 57; sitting 123/69, 58 and standing 140/64, 60. Her movements are slow and she has trouble relaxing her arm and so testing is limited. Given her complaints and that daughter reports vertigo in the past, PT does suspect BPPV and so will check and treat for this in future PT treatment as this contributes to falls and decreased mobility. Daughter reports 7 recent falls. PT is concerned about possible neurological events given falls, a-fib and pt is not wearing her CPAP. Recommend follow-up with PCP about this. Unsure yet if OPPT is the best place for pt to been seen for PT given her immobility and daughter states that her presentation is worse than when she saw PCP. Will start an OPPT trial and asked daughter to bring pt in her w/c. Physical Therapy Plan Frequency and Duration Frequency of Treatment 2x/Week Duration of Treatment 4 weeks Plan of Care Start Date 10/09/20 Plan of Care End Date 11/09/20 Therapeutic Interventions Therapeutic Interventions Balance Training,Canalithic Repositioning,Gait Training, Home Exercise Program, Neuromuscular Re-education, Patient/Caregiver Education, Self-Care/Home Management,Soft Tissue Mobilization, Therapeutic Activities, Therapeutic Exercises, Vestibular Rehabilitation Modalities Cold Pack/Ice Massage,Hot Packs Next Visit Focus/Plan Next Note Type Treatment Note Next Visit Plan Assess and treat for BPPV as needed
--- NOTE | 2020-10-09 15:59 | PT.OPPOC ---
Physical, Occupational & Speech Therapy At [facility] Current Diagnoses Unspecified fall, initial encounter (10/09/20) Visit Care Team Role Provider Type Jayna Cardona DO Attending Provider Physician Family Provider Primary Care Provider Referring Provider Specialty: Family Practice Address: [address] [place] [address], [address], [facility] Email: [email or web address] Plan Of Care PT-OP-T Assessment and Plan Start: 10/05/20 10:44 Freq: Status: Active Protocol: Document 10/09/20 13:00 MB (Rec: 10/09/20 15:58 MB [id number]) Physical Therapy Assessment Rehab Potential Rehabilitation Potential Fair Evaluation Complexity Number of Personal Factors/Comorbidities 3 or More Number of Body Systems Impaired 4 or More Clinical Presentation at Evaluation Unstable Impairments Impairments Activity Tolerance,Balance, Coordination,Edema,Functional Activities,Functional Mobility ,Gait,Pain,Posture,ROM,Soft Tissue Mobility,Strength, Transfers,Vestibular Other Impairments Personal factors include pt presents with dementia, is hypoverbal and requires asst for ADLs and gait. Body systems affected include neurological, cognitive, cardiovascular, orthopedic and vestibular. Her clinical presentation is evolving in setting of a-fib and not wearing CPAP, dementia, ongoing falls, neurological signs today and orthopedic injury. Other Concerns Fall Risk Yes Goals 3 Half-Way Goal (LTG) Pt and family will demonstrate caregiver I for HEP and any other safety recommendations for mobility and gait to improve safety and decrease BOC by 11/09/20. LTG Duration 4 weeks 2 Division Engineer Goal (LTG) Pt will gait train 75 feet with CGA and LRAD (if able to perform cognitively) to improve mobility and to decrease caregiver burden by . LTG Duration 4 weeks 1 Half-Way Goal (LTG) Pt will perform transfers with cues to decrease fall risk and caregiver burden by . LTG Duration 4 weeks Assessment Summary Assessment Pt is an 85 y/o female presenting quite debilitated today. She is unable to get out of clinic waiting area chair without assist or walk without assist today. Gait training with RW does not go well and is impeded by cognitive impairment. She has festinating gait pattern with greater weakness on right foot , some right LE inattention and toe drag. This gait presentation is neurological in nature and she also presents with clonus right ankle with rapid passive DF. She requires heavy assist for bed moblity. She reports swirlies with getting up OOB to the left and experiences this with orthostatic testing today with getting up to the left. Her BP does not drop and BP and HR in LUE are: 121/59, 57; sitting 123/69, 58 and standing 140/64, 60. Her movements are slow and she has trouble relaxing her arm and so testing is limited. Given her complaints and that daughter reports vertigo in the past, PT does suspect BPPV and so will check and treat for this in future PT treatment as this contributes to falls and decreased mobility. Daughter reports 7 recent falls. PT is concerned about possible neurological events given falls, a-fib and pt is not wearing her CPAP. Recommend follow-up with PCP about this. Unsure yet if OPPT is the best place for pt to been seen for PT given her immobility and daughter states that her presentation is worse than when she saw PCP. Will start an OPPT trial and asked daughter to bring pt in her w/c. Physical Therapy Plan Frequency and Duration Frequency of Treatment 2x/Week Duration of Treatment 4 weeks Plan of Care Start Date 10/09/20 Plan of Care End Date 11/09/20 Therapeutic Interventions Therapeutic Interventions Balance Training,Canalithic Repositioning,Gait Training, Home Exercise Program, Neuromuscular Re-education, Patient/Caregiver Education, Self-Care/Home Management,Soft Tissue Mobilization, Therapeutic Activities, Therapeutic Exercises, Vestibular Rehabilitation Modalities Cold Pack/Ice Massage,Hot Packs Next Visit Focus/Plan Next Note Type Treatment Note Next Visit Plan Assess and treat for BPPV as needed Plan of Care Dates Plan of Care Start Date 10/09/20 Plan of Care End Date 11/09/20 Electronically Signed by: Marilyn Galvan, PT 10/09/20 [id number] Please Sign and Return: I have reviewed this Plan of Care and certify that the skilled therapy services above are required to meet the patient?s needs. Physician Signature Date Printed Name and Credentials Clinical Instructor Signature Printed Name and Credentials
--- NOTE | 2020-10-11 12:57 | PT.OTN ---
Current Diagnoses Dizziness and giddiness (10/11/20) Unspecified fall, initial encounter (10/11/20) Physical Therapy Treatment Note PT-OP-A Visit Information Start: 10/05/20 10:44 Freq: Status: Active Protocol: Document 10/11/20 12:16 MB (Rec: 10/11/20 12:57 MB [id number]) Out-Patient Physical Therapy Visit Information Visit Information Visit Type Treatment Note Visit Note Medicare, 04/11 before KX Visit Start Time 12:16 Visit Stop Time 12:50 Total Visit Minutes 34 Visit Number 2 PT-OP-B Current Condition Start: 10/05/20 10:44 Freq: Status: Active Protocol: Document 10/09/20 13:00 MB (Rec: 10/09/20 13:28 MB [id number]) Current Condition History of Current Condition Onset Date Progressive over several weeks Current Complaints Leg pain, lethargy, decreased mobility History of Current Condition Pt's daughter, Ilsa, arrives with patient. She states that pt's needs have changed since she saw Dr. Cardona. Pt has had three falls in the last two weeks and the EMS has had to come twice to help pt get up. Pt lives with her . She got a rollator and is not using it. It is too fast for her. Pt has dementia. Ilsa is going to her parents twice a week to help for 4 hours and she has caregiver support on Fridays. The caregivers will help with showers, laundry and sheets. Daughter assists with meals and gives caregiver support. She was trying to help the pt with walking and sit to stands and that is not going as well. Her energy level is getting low. She is sleeping late and is not always getting dressed. Daughter reports AD dx 7 years ago, sleep apnea and a-fib. The CPAP has been challenging and she has not been wearing it. When asked, pt reports right knee pain. Dr. Cardona gave pt a shot in her right knee. There are two stairs with 1 rail to get in and out of the house. She holds onto daughter 's arm with gait. They do have a w/c. Her assists pt to BR at night when she needs to toilet. Ilsa states that today is an average day for the patient. Daughter reports that pt is complaining of pain in the belly. No known history of UTI . Ilsa reports progressive decreased ambulation of pt. Four years ago, pt could walk around the block. Pt had 4 sessions of OT in the home last spring. Daughter reports B knee pain d/t arthritis. PT-OP-C Subjective Start: 10/05/20 10:44 Freq: Status: Active Protocol: Document 10/11/20 12:16 MB (Rec: 10/11/20 12:57 MB [id number]) OP-PT Subjective Patient Comments Patient Comments Pt is hypoverbal. Daughter, Ilsa, arrives with pt. She has some questions about what DME is best for pt in the shower. The caregiver agency has no caregivers. PT encourages Ilsa about following up with Dr. Cardona and ed her on the role of HHPT vs OPPT. PT-OP-D Balance Start: 10/05/20 10:44 Freq: Status: Active Protocol: Document 10/09/20 13:00 MB (Rec: 10/09/20 15:58 MB [id number]) OP-PT Balance Assessment Sitting Balance Static Sitting Balance Ability Good Dynamic Sitting Balance Ability Fair Sitting Balance Comments UE support for MMT sitting edge of mat Standing Balance Static Standing Balance Ability Poor Dynamic Standing Balance Ability Poor Standing Balance Comments Pt reaches for objects, does not seem to process stand up and appears to wait for PT or daughter offering arm to perform moving to standing Balance Tests Other Other Balance Tests Performed LOB with static standing with normal BANDAR, forward, flexed posture Murillo Fall Scale Copyright Permission PT-OP-G Mobility & Gait Start: 10/05/20 10:44 Freq: Status: Active Protocol: Document 10/09/20 13:00 MB (Rec: 10/09/20 15:58 MB [id number]) OP Mobility Evaluation Bed Mobility Rolling Max A to help roll and get positioned well on her back on the mat Supine to and from Sit As above, cues for movement Transfers Sit to Stand Min A and cues OP Gait Assessment Gait Gait Assistance Required: 1 Person Assist Distance (Feet) 65 Assistive Devices Assistive Device None,Front Wheeled Walker Orthotic/Prosthetic Devices or Brace: No Gait Deviations General Gait Pattern Decreased Stride Length, Decreased Feet Clearance, Festinating,Flexed Trunk,Step- to Gait,Wide Based Gait Factors Limiting Gait Function Factors Limiting Gait Function Abnormal Tonal Influences, Decreased Activity Tolerance, Difficulty Following Directions,Incoordination, Limited Range of Motion,Pain, Poor Balance,Poor Safety Awareness Comments Gait Comments Pt sitting in chair in waiting room upon arrival and cannot get up without min A from PT. She holds onto daughter while PT gets RW for pt to try. With walker, she is confused and tends to scuff right toes, has wide BANDAR, does not clear right foot and her gait is festinating and she especially slows down around corner. 50' gait with RW and her pattern does not improve and she does not appear to understand or have recall for how to keep feet inside RW. Cues and min A to help with position and for scooting walker back to plinth before assessment in supine. Next, PT and daughter offer support via arm and pt's gait is pretty similar, with a lot of trouble crossing thresholds and different surface--from casie to carpet, into entrance and outside. PT-OP-J Posture/Palpation/Skin Start: 10/05/20 10:44 Freq: Status: Active Protocol: Document 10/09/20 13:00 MB (Rec: 10/09/20 15:58 MB [id number]) Posture Evaluation Comments Posture Comments Right knee has degenerative appearing changes and looks different that the left. She has mild B LE edema. PT-OP-K Range of Motion Start: 10/05/20 10:44 Freq: Status: Active Protocol: Document 10/09/20 13:00 MB (Rec: 10/09/20 15:58 MB [id number]) Shoulder Goniometric Range of Motion Shoulder ROM Limitations Comments Gross ROM only to pt's tolerance and right shoulder flexion is mildly less than the left Ankle and Foot Goniometric Range of Motion Ankle and Foot ROM Limitations Comments R PF clonus with quick passive DF that is not true on the left, increased tone right ankle PT-OP-M Strength Start: 10/05/20 10:44 Freq: Status: Active Protocol: Document 10/09/20 13:00 MB (Rec: 10/09/20 15:58 MB [id number]) Knee Strength Knee Manual Muscle Testing Bilateral Flexion (S2) 3+ Fair+ Extension (L3) 4 Good Ankle/Foot Strength Ankle and Foot Manual Muscle Testing Left Dorsiflexion (L4) 4 Good Right Dorsiflexion (L4) 3+ Fair+ PT-OP-Q Treatments Start: 08/06/21 10:44 Freq: Status: Active Protocol: Document 10/11/20 12:16 MB (Rec: 10/11/20 12:57 MB [id number]) Therapeutic Activity Therapeutic Activity Transfer from w/c to plinth and back, canalith checking, transfer into car from w/c Comments Pt requries verbal and manual cues and SCALE ADJUSTER for sit to stand several times from w/c, plinth and to car. Pt must be guided for all tasks. +1-2 asst for all bed mobility on plinth for checking for BPPV horizontal and posterior canals, rolling and getting back up to edge of mat. PT pushes pt out to van and assist into car with tactile and VCs and SCALE ADJUSTER. PT-OP-T Assessment and Plan Start: 10/05/20 10:44 Freq: Status: Active Protocol: Document 10/11/20 12:16 MB (Rec: 10/11/20 12:57 MB [id number]) Physical Therapy Assessment Progress Towards Goals Progress Comments Not progressing Assessment Summary Assessment Negative BPPV testing today. Pt requires heavy assist and cues for all transfers and mobility d/t cognitive issues and weakness. At this time, getting out of house to OPPT is too difficult for pt. Recommend follow-up with referring provider and HHPT and HHOT consults. Will d/c OPPT and send this note to Dr. Cardona.
== END 2020-10-15 08:38 | disposition home or self-care (01) ==
LOC: PHYS 12:15
PROVIDERS: Family Provider Family Medicine; PCP Family Medicine; Referring Provider Family Medicine; Visit Provider Family Medicine
DX: R42 Dizziness and giddiness (principal); W19.XXXA Unspecified fall, initial encounter
CPT/HCPCS: 97116; 97162; 97530; 97535

== ENCOUNTER 2020-11-03 10:17 | Observation (INO) | payer MEDICARE, SELFPAY ==
[2020-11-03] VITALS (18 sets, daily range): BP systolic 133–173; BP diastolic 62–99; PULSE 49–73; RESP 12–27; TEMP 36.3–36.9; O2SAT 94–99; BMI 27.6
--- NOTE | 2020-11-03 10:37 | ED_ITS ---
HPI - Altered Mental Status General Chief Complaint: Altered Mental Status Time Seen by Provider: 11/03/20 10:21 Source: EMS Mode of arrival: EMS History of Present Illness HPI narrative: Patient is an 85-year-old female with history of Alzheimer's atrial fibrillation on Eliquis increasing confusion, generalized weakness. Which she has been noted by family to have increasing right leg weakness ongoing for a few weeks physical therapy noted as well. She was seen evaluated by her PCP yesterday for increasing need for ADLs. She is started on mirtazapine last night for the 1st time and is more confused and having garbled speech this m orning. Daughter states that the noted she was staring off into space around 7:00 p.m. prior to medication. She said that is not abnormal but it was definitely more pronounced. He had difficulty getting her into bed he had to use the wheelchair they have only needed a wheelchair hand 4 times he was unable to get her into bed she slept in a recliner. This morning woke up noted to have some garbled speech and increased confusion. She was previously at her baseline yesterday although at primary care at home increased weakness. There are reports of her falling more over the last 2 wee ks. Patient is overall an extremely poor historian, she is able to follow commands. Daughter at bedside is primary historian. Daughter at bedside states that there has obviously been progressive decline over the past few weeks however over last 24 hours significant decline. She noticed even yesterday getting in and out of the car going to the doctor was significantly slower along with walking also slower. She was at least able to ambulate and get up yesterday however today for family weak and unable to get up Related Data Home Medications Medication Instructions Recorded Confirmed cholecalciferol (vitamin D3) 25 1,000 unit PO QDAY #0 07/24/16 11/02/20 mcg (1,000 unit) tablet (Vitamin D3) Respironics DreamStation Auto CPAP #1 ea 03/30/18 11/02/20 cyanocobalamin (vitamin B-12) 1,000 mcg PO Q DAY #0 tab 06/01/19 11/02/20 1,000 mcg tablet,extended release latanoprost 0.005 % eye drops 1 drop EYE-BOTH ml 06/01/19 11/02/20 losartan 25 mg tablet 25 mg PO DAILY 12/23/19 11/02/20 potassium chloride 20 mEq 20 meq PO DAILY 12/23/19 11/02/20 tablet,extended release flecainide 50 mg tablet 50 mg PO Q12H tab 03/31/20 11/02/20 Previous Rx's Medication Instructions Recorded Handicap Placard #1 ea 05/11/19 apixaban 5 mg tablet (Eliquis) 5 mg PO BID #60 tab 07/18/19 diltiazem HCl 120 mg 120 mg PO QAM #30 cap 07/27/19 capsule,extended release 24 hr hydrochlorothiazide 25 mg tablet See Rx Instructions .ROUTE 06/06/20 .COMPLEX #90 tab miscellaneous medical supply #1 ea 06/22/20 miscellaneous medical supply See Rx Instructions .ROUTE 06/22/20 .COMPLEX #1 ea memantine 10 mg tablet See Rx Instructions .ROUTE 09/13/20 .COMPLEX #180 tab simvastatin 10 mg tablet See Rx Instructions .ROUTE 09/17/20 .COMPLEX #90 tab mirtazapine 7.5 mg tablet 7.5 mg PO BEDTIME #30 tab 11/02/20 Allergies Allergy/AdvReac Type Severity Reaction Status Date / Time No Known Drug Allergies Allergy Verified 11/03/20 15:41 Review of Systems Review of Systems Narrative: limited ROS Unobtainable: Unobtainable due to medical condition Constitutional Constitutional: Reports frequent falls Cardiovascular Cardiovascular: Denies chest pain and Reports irregular heart rhythm (hx of afib) Respiratory Respiratory: Denies cough Musculoskeletal Musculoskeletal: Reports abnormal gait Integumentary/Breasts Skin/Breast: Denies rash Neurologic Neurologic: Reports system reviewed and no additional complaints, except as documented, Reports abnormal gait, Reports confusion, Reports frequent falls, Re ports localized weakness and Reports memory loss Psychiatric Psychiatric: Reports confusion and Reports memory loss Patient History Medical History (Updated 11/03/20 @ 13:57 by Valorie Cerna DO) Basal cell carcinoma of skin (~2010) Chickenpox Chronic anticoagulation Dementia (~2010) Glaucoma Hearing loss Hyperlipidemia 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 Social History marital status: details: to Terry number of children: 1 household members: spouse lives independently: No caregiver/support person: Yes ( Terry) housing: house other: one daughter, an RN, visits weekly Smoking Status: Former smoker alcohol intake: former Smoking Status: Former smoker Substance Use Type: does not use Exam Initial Vital Signs Initial Vital Signs: Vital Signs Temperature 98.5 F 11/03/20 10:20 Pulse Rate 68 11/03/20 10:20 Respiratory Rate 15 11/03/20 10:20 Blood Pressure 137/62 11/03/20 10:20 Pulse Oximetry 98 11/03/20 10:20 GENERAL: Alert 85-year-old female confused HEENT: Head atraumatic,EOMI, pupils reactive, face symmetric, moist mucous membranes CARDIOVASCULAR: Regular rate and rhythm without murmurs, rubs or gallops. RESPIRATORY: Breath sounds equal bilaterally, no wheezes rales or rhonchi. ABDOMEN: Soft, nontender. Normoactive bowel sounds all 4 quadrants. No guarding or rebound. EXTREMITIES: Normal range of motion, no clubbing or edema. Neurovascularly intact NEUROLOGICAL: Alert to person revenue specialist strength equal bilaterally but generally weak good finger to nose lower extremity strength is equal able to do [id number] with left leg but unable to do it with right leg due to bad knee sensation is intact to soft touch face is symmetric SKIN: Warm, dry, no laceration, no petechiae, no rashes or lesions. Course Orders Ordered: Acetaminophen (Acetaminophen 325 Mg Tablet) 650 mg PO Q6HR PRN PRN Reason: Fever/Mild Pain (1-3) Apixaban (Apixaban 5 Mg Tablet) 5 mg PO BID [facility] Last Admin: 11/03/20 20:12 Dose: 5 mg Documented by: [email or web address] Diltiazem HCl (Diltiazem Cd 120 Mg Cap) 120 mg PO DAILY [facility] Ondansetron HCl (Ondansetron 4 Mg/2 Ml Inj) 4 mg IV Q8HR PRN PRN Reason: Nausea And Vomiting Discontinued Medications Sodium Chloride (Normal Saline 0.9%) 1,000 mls @ 150 mls/hr IV CONT TONA Last Infusion: 11/03/20 16:40 Dose: 150 mls/hr Documented by: Infusion: 11/03/20 16:37 Dose: 0 mls/hr Documented by: Admin: 11/03/20 10:50 Dose: 150 mls/hr Documented by: CHAN Vital Signs Vital signs: Vital Signs - 8 hr 11/03/20 10:20 11/03/20 10:21 11/03/20 10:30 Temperature 98.5 F Pulse Rate 68 68 67 Respiratory Rate 15 Blood Pressure 137/62 137/62 133/66 Pulse Oximetry 95 96 97 11/03/20 11:00 11/03/20 11:36 11/03/20 12:00 Temperature Pulse Rate 64 49 L 63 Respiratory Rate 16 13 Blood Pressure 140/65 Pulse Oximetry 97 94 98 11/03/20 12:30 11/03/20 13:00 11/03/20 13:30 Temperature Pulse Rate 66 64 62 Respiratory Rate 14 19 21 Blood Pressure Pulse Oximetry 97 98 98 11/03/20 14:00 11/03/20 14:30 11/03/20 15:00 Temperature Pulse Rate 62 62 68 Respiratory Rate 25 H 27 H 16 Blood Pressure 140/65 Pulse Oximetry 98 99 97 11/03/20 15:30 Temperature Pulse Rate 65 Respiratory Rate 12 Blood Pressure Pulse Oximetry 97 MDM - Altered Mental Status Lab Data Result diagrams: 11/03/20 10:49 11/03/20 10:49 Labs: Lab Results 11/03/20 11/03/20 11/03/20 Range/Units 10:49 10:49 12:20 WBC 9.4 (4.5-11.0) X10^3/uL RBC 4.27 (4.0-5.2) X10^6/uL Hgb 13.2 (12.0-16.0) g/dL Hct 39.2 (36-46) % MCV 91.7 (80-100) fL MCH 31.0 (26-34) PG MCHC 33.8 (30-36) % RDW 13.4 (11.6-14.8) % Plt Count 244 (150-400) X10^3/uL Neut % (Auto) 84.1 H (50-75) % Lymph % (Auto) 9.1 L (25-40) % [place] % (Auto) 6.2 (3-14) % Eos % (Auto) 0.2 L (2-4) % Baso % (Auto) 0.4 (0-2) % Neut # (Auto) 7900 H (9560-5418) /uL Lymph # (Auto) 800 L (9987-6496) /uL [place] # (Auto) 600 (0-900) /uL Eos # (Auto) 0 (0-450) /uL Baso # (Auto) 0 (0-100) /uL Sodium 138 (137-145) mmol/L Potassium 3.6 (3.4-5.1) mmol/L Chloride 103 (98-107) mmol/L Carbon Dioxide 26 (22-32) mmol/L BUN 13 (7-17) mg/dL Creatinine 0.63 (0.52-1.04) mg/dL Estimated GFR > 60.0 (>60) mL/min BUN/Creatinine Ratio 20.6 (6-22) Glucose 121 H (80-110) mg/dL Calcium 9.8 (8.4-10.2) mg/dL Total Bilirubin 0.4 (0.2-1.3) mg/dL AST 19 (14-36) IU/L ALT 13 (<35) IU/L Alkaline Phosphatase 91 (38-126) U/L Total Creatine Kinase 38 (30-135) U/L CK-MB (CK-2) TNP CK-MB (CK-2) Rel Index TNP Troponin I < 0.012 (0.01-0.034) ng/mL Total Protein 7.2 (6.3-8.2) g/dL Albumin 4.4 (3.5-5.0) g/dL Globulin 2.8 (1.7-4.1) g/dL Albumin/Globulin Ratio 1.6 (1.0-2.8) Urine Color Urine Appearance Urine pH (4.5-8.0) Ur Specific [place] (1.000-1.035) Urine Protein (Negative) Urine Glucose (UA) (Negative) g/dL Urine Ketones (NEGATIVE) Urine Occult Blood (Negative) Urine Nitrate (Negative) Urine Bilirubin (NEGATIVE) Urine Urobilinogen (0.2) E.U./dL Ur Leukocyte Esterase (NEGATIVE) Urine RBC (0-5/HPF) Urine WBC (0-5/HPF) Ur Squamous Epith Cells (0-5/HPF) Amorphous Sediment Urine Bacteria (None) Urine Mucus (Negative) Ur Culture Indicated? U Opiates 300ng/mL cut Negative (Negative) Ur Oxycodone Screen Negative (Negative) Urine Methadone Screen Negative (Negative) Ur Barbiturates Screen Negative (Negative) U Tricyclic Antidepress Negative (Negative) Ur Phencyclidine Scrn Negative (Negative) Ur Amphetamines Screen Negative (Negative) U Methamphetamines Scrn Negative (Negative) Ur MDMA Scrn (Ecstasy) Negative (Negative) U Benzodiazepines Scrn Negative (Negative) Urine Cocaine Screen Negative (Negative) U Marijuana (THC) Screen Negative (Negative) SARS-CoV-2 (PCR) (Negative) 11/03/20 11/03/20 Range/Units 12:20 13:00 WBC (4.5-11.0) X10^3/uL RBC (4.0-5.2) X10^6/uL Hgb (12.0-16.0) g/dL Hct (36-46) % MCV (80-100) fL MCH (26-34) PG MCHC (30-36) % RDW (11.6-14.8) % Plt Count (150-400) X10^3/uL Neut % (Auto) (50-75) % Lymph % (Auto) (25-40) % [place] % (Auto) (3-14) % Eos % (Auto) (2-4) % Baso % (Auto) (0-2) % Neut # (Auto) (9220-9972) /uL Lymph # (Auto) (0051-4342) /uL [place] # (Auto) (0-900) /uL Eos # (Auto) (0-450) /uL Baso # (Auto) (0-100) /uL Sodium (137-145) mmol/L Potassium (3.4-5.1) mmol/L Chloride (98-107) mmol/L Carbon Dioxide (22-32) mmol/L BUN (7-17) mg/dL Creatinine (0.52-1.04) mg/dL Estimated GFR (>60) mL/min BUN/Creatinine Ratio (6-22) Glucose (80-110) mg/dL Calcium (8.4-10.2) mg/dL Total Bilirubin (0.2-1.3) mg/dL AST (14-36) IU/L ALT (<35) IU/L Alkaline Phosphatase (38-126) U/L Total Creatine Kinase (30-135) U/L CK-MB (CK-2) CK-MB (CK-2) Rel Index Troponin I (0.01-0.034) ng/mL Total Protein (6.3-8.2) g/dL Albumin (3.5-5.0) g/dL Globulin (1.7-4.1) g/dL Albumin/Globulin Ratio (1.0-2.8) Urine Color Yellow Urine Appearance Clear Urine pH 6.0 (4.5-8.0) Ur Specific [place] 1.010 (1.000-1.035) Urine Protein Negative (Negative) Urine Glucose (UA) Negative (Negative) g/dL Urine Ketones Negative (NEGATIVE) Urine Occult Blood Trace-intact (Negative) Urine Nitrate Negative (Negative) Urine Bilirubin Negative (NEGATIVE) Urine Urobilinogen 0.2 (0.2) E.U./dL Ur Leukocyte Esterase Negative (NEGATIVE) Urine RBC 0-1/hpf (0-5/HPF) Urine WBC 0-1/hpf (0-5/HPF) Ur Squamous Epith Cells 0-1 /hpf D (0-5/HPF) Amorphous Sediment 1+ Urine Bacteria None seen (None) Urine Mucus 1+ H (Negative) Ur Culture Indicated? Cult not indicated U Opiates 300ng/mL cut (Negative) Ur Oxycodone Screen (Negative) Urine Methadone Screen (Negative) Ur Barbiturates Screen (Negative) U Tricyclic Antidepress (Negative) Ur Phencyclidine Scrn (Negative) Ur Amphetamines Screen (Negative) U Methamphetamines Scrn (Negative) Ur MDMA Scrn (Ecstasy) (Negative) U Benzodiazepines Scrn (Negative) Urine Cocaine Screen (Negative) U Marijuana (THC) Screen (Negative) SARS-CoV-2 (PCR) Negative (Negative) MDM Narrative Medical decision making narrative: The patient is a 85 year female who has had ongoing progressive decline at home. Family has done multiple outpatient things such as getting her wheelchair trying to get home health care twice a week but due to severe shortage unable to, primary caregiver is her who is also elderly. All family members state that the decline initially was quite slow over the last 24 hours is significantly worse than what has been. She did have new medication last evening but even daughter noted some changes yesterday afternoon. Attempted to get patient out of bed by CNAs unfortunately failed. Daughter states that that is not normal it is difficult to get her off and out but not like this. She also has been sleeping more today than what is normal for her. Patient has been evaluated by social Work. Unable to get patient placed. Unable to provide any other further outpatient resources. Discussion with Dr. Amin removed states with me observation only Family is made aware of observation status. Given option to go home versus stay in hospital for observation they state that even if insurance does not cover it they agree that patient needs to stay in the hospital overnight. Discharge Plan Departure Patient Disposition: Admitted as Observation Clinical Impression: Weakness, Adult failure to thrive Admit Date/Time: 11/03/20 15:50 Admit Provider: Ishmael Sarabia
--- NOTE | 2020-11-03 10:37 | DI.CT.S_ITS ---
PROCEDURE: CT HEAD/BRAIN WO CON INDICATIONS: weakness decreased mental status TECHNIQUE: Noncontrast 4.5 mm thick angled axial sections acquired from the foramen magnum to the vertex, with coronal and sagittal reformats. For radiation dose reduction, the following was used: automated exposure control, adjustment of mA and/or kV according to patient size. COMPARISON: None. FINDINGS: Image quality: Excellent. CSF spaces: Basal cisterns are patent. No extra-axial fluid collections. The ventricles are symmetric in size and shape. Brain: No intracranial bleeds. Along the right aspect of the falx, there is a densely calcified focus seen measuring 1 cm, as on series 7, image 23 and on series 5, image 23. There is cerebral volume loss for age, with resultant ventricular and sulcal prominence. There are periventricular and deep white matter chronic small vessel ischemic changes. There is intracranial internal carotid artery atherosclerosis. Skull and face: Calvarium and visualized facial bones appear intact, without suspicious lesions. Sinuses: Visualized sinuses and mastoids are clear. IMPRESSION: No acute intracranial process is seen. No acute intracranial hemorrhage is seen. Note is made of age-appropriate brain parenchymal volume loss and chronic small vessel ischemic changes. 1 cm calcified lesion along the right falx, which may be related to a meningioma. Dictated by: Todd Doss M.D. on 11/03/2020 at 10:48 Approved by: Todd Doss M.D. on 11/03/2020 at 10:50
--- NOTE | 2020-11-03 10:38 | DI.CT.S_ITS ---
PROCEDURE: CT ANGIO HEAD AND NECK INDICATIONS: decrease mental status right leg weakness TECHNIQUE: Noncontrast images were performed earlier in the day and not repeated. After the administration of intravenous contrast, 1 mm thick sections acquired from the aortic arch through the [place] of [place]. Post-contrast 4.5 mm thick sections then re-acquired from the foramen magnum to the vertex. 3-dimensional kvofxbx-ggresnvfl-dtoeujiwll (MIP) and/or volume rendering reformats were acquired of the central intracranial vasculature and neck separately. COMPARISON: [facility], CT, CT HEAD/BRAIN WO CON, 11/03/2020, 10:48. FINDINGS: Image quality: Excellent. BRAIN: CSF spaces: Ventricles are normal in size and shape. Basal cisterns are patent. No extra-axial fluid collections. Brain: No midline shift. No intracranial bleeds or masses. Gavin-white matter interface appears intact. Skull and face: Calvarium and facial bones appear intact, without suspicious lesions. Orbits appear normal. Sinuses: Sinuses and mastoids are clear. HEAD CT ANGIOGRAPHY: Anterior circulation: Intracranial internal carotid arteries demonstrate generalized atherosclerotic calcification and irregularity, with approximately 30% narrowing seen on each side.. The flow within the paired anterior cerebral arteries is normal and symmetric. The flow within the middle cerebral arteries is normal and symmetric. The anterior communicating artery not well is seen. No aneurysms are seen. Posterior circulation: Visualized portions of the vertebral arteries demonstrate normal caliber, and join to form a normal appearing basilar artery. Flow within the posterior cerebral arteries is normal and symmetric. No aneurysms are seen. NECK CT ANGIOGRAPHY: Carotid system: The great vessels demonstrate a conventional anatomy as they arise from the aortic arch. The origins of the common carotid arteries appear patent. The common carotid arteries demonstrate normal caliber. The proximal common carotid arteries are tortuous. The bifurcation regions are both widely patent. The internal carotid arteries demonstrate normal calibers and courses. Posterior circulation: The origins of the vertebral arteries both appear widely patent. There is prominent tortuosity seen involving the proximal left vertebral artery. The more superior extracranial portions of both vertebral arteries also demonstrate normal courses and calibers. They join to form a normal appearing basilar artery. Soft tissues: Visualized neck soft tissues demonstrate no suspicious abnormalities. Bones: No suspicious bony lesions. Visualized cervical spine appears normally aligned. At least moderate cervical spine degenerative change can be seen. IMPRESSION: No significant intracranial arterial abnormality is seen. Within the arteries of the neck, no hemodynamically significant stenosis can be seen. If there is strong clinical suspicion for an acute stroke, please consider a brain MRI for further evaluation, as it is more sensitive (assuming that there is no contraindication to MRI). Any quantitative measurements of stenosis were performed using NASCET criteria. Dictated by: Todd Doss M.D. on 11/03/2020 at 10:54 Approved by: Todd Doss M.D. on 11/03/2020 at 10:57
[2020-11-03] MEDS: SODIUM CHLORIDE 0.9% 1,000 ML 150 ML IV (10:50)
[2020-11-03 11:08] LABS: Add Manual Diff / Slide Review NO; Basophils Absolute Auto 0 /uL (0-100); Basophils Percent Auto 0.4 % (0-2); Eosinophils Absolute Auto 0 /uL (0-450); Eosinophils Percent Auto 0.2 % (2-4); Hematocrit 39.2 % (36-46); Hemoglobin 13.2 g/dL (12.0-16.0); Lymphocytes Absolute Auto 800 /uL (1100-4500); Lymphocytes Percent Auto 9.1 % (25-40); Mean Corpuscular HGB Conc 33.8 % (30-36); Mean Corpuscular Volume 91.7 fL (80-100); Monocytes Absolute Auto 600 /uL (0-900); Monocytes Percent Auto 6.2 % (3-14); Neutrophils Absolute Auto 7900 /uL (1500-7000); Neutrophils Percent Auto 84.1 % (50-75); Platelet Count 244 X10^3/uL (150-400); Red Blood Cell Count 4.27 X10^6/uL (4.0-5.2); Red Cell Distribution Width 13.4 % (11.6-14.8); White Blood Cell Count 9.4 X10^3/uL (4.5-11.0)
[2020-11-03 11:17] LABS: Alanine Aminotransferase 13 IU/L (<35); Albumin 4.4 g/dL (3.5-5.0); Albumin Globulin Ratio 1.6 (1.0-2.8); Alkaline Phosphatase 91 U/L (38-126); Aspartate Aminotransferase 19 IU/L (14-36); BUN Creatinine Ratio 20.6 (6-22); Bilirubin Total 0.4 mg/dL (0.2-1.3); Blood Urea Nitrogen 13 mg/dL (7-17); Calcium 9.8 mg/dL (8.4-10.2); Carbon Dioxide 26 mmol/L (22-32); Chloride 103 mmol/L (98-107); Creatine Kinase 38 U/L (30-135); Estimated Glomerular Filt Rate > 60.0 mL/min (>60); Globulin 2.8 g/dL (1.7-4.1); Glucose 121 mg/dL (80-110); HEMOLYSIS < 15 (0-50); Potassium 3.6 mmol/L (3.4-5.1); Sodium 138 mmol/L (137-145); Total Protein 7.2 g/dL (6.3-8.2)
[2020-11-03 11:29] LABS: Troponin I < 0.012 ng/mL (0.01-0.034)
[2020-11-03 12:34] LABS: Bacteria Urine None Seen
[2020-11-03 12:37] LABS: Appearance Urine UA CLEAR; Bilirubin Urine UA NEGATIVE (NEGATIVE); Color Urine UA YELLOW; Glucose Urine UA NEGATIVE (Negative); Ketones Urine UA NEGATIVE (NEGATIVE); Leukocyte Esterase Urine UA NEGATIVE (NEGATIVE); Nitrite Urine UA NEGATIVE (Negative); Occult Blood Urine UA TRACE-INTACT (Negative); Protein Urine UA NEGATIVE (Negative); Urobilinogen Urine UA 0.2 E.U./dL (0.2)
[2020-11-03 12:41] LABS: UR Morphine/Opiate cutoff 300 Negative (Negative); Ur Creatinine Normal (Normal); Ur Specific Gravity Normal (Normal); Urine Amphetamines Negative (Negative); Urine Barbiturates Negative (Negative); Urine Benzodiazepines Negative (Negative); Urine Cocaine Negative (Negative); Urine MDMA Negative (Negative); Urine Methadone Negative (Negative); Urine Methamphetamines Negative (Negative); Urine Oxycodone Negative (Negative); Urine Phencyclidine Negative (Negative); Urine Tetrahydrocannabinol Negative (Negative); Urine Tricyclic Antidepressant Negative (Negative); Urine pH Normal (Normal)
[2020-11-03 12:44] LABS: Amorphous Sediment Urine 1+; RBC Urine 0-1/HPF (0-5/HPF); Squamous Epithelial Cell Urine 0-1 /HPF (0-5/HPF); WBC Urine 0-1/HPF (0-5/HPF)
[2020-11-03 12:45] LABS: Culture Indicated Urine Cult Not Indicated; Mucus Urine 1+ (Negative)
[2020-11-03 14:08] LABS: COVID19 - ADMIT (NP swab/PCR) Negative (Negative)
--- NOTE | 2020-11-03 15:34 | CM.IDA ---
Initial DCP Assessment Note Pt is an 85 yo female, resident of [place], brought into the ED by family for concern of generalized weakness and altered mental status. This PROGRAM PROPOSALS COORDINATOR requested for consult while patient in the ED, to determine if safe DCP can be arranged from the ED, home w/family w/outpatient resources. PCP: Jayna Cardona Payer: [facility] Met w/patient, sleeping, and dtr Ilsa, in ER Rm 07, introduced role. According to this conversation: Patient has appeared to take a drastic decline in the last 2 weeks, requiring assist w/most ADLs when patient had been able to maneuver her home w/o AD prior (however needed cueing for safety d/t dementia) . Spouse has been providing care, dtr and son in law live approx 20 min away and also assist. Reviewed efforts dtr has taken to secure in home care: Patient/spouse have correction care insurance which has been activated but now awaiting an assessment of care needs (scheduled next week)before they will flower $ for in home caregivers. Dtr also awaiting a call [phone] from a cg agency re: patient's current spot on their wait list to secure in-home cg assist. It appears to family that patient is not resistant to getting up or to their care, just that she complains of feeling very weak and so cannot participate in transfers. Patient currently requiring 1-2person assist for transfers. Patient has a wheelchair at home, suggested family get a walker and bedside commode as well. Might also benefit from training w/a gait belt (?) Explained to dtr that d/t critically low staffing, facilities and in home care giving agencies have a greater wait list, dtr aware. Organizing placement or care gives cannot be done from the ER 1. [facility] insurance requires pre auth for SNF placement and 2. Private pay/respite facilities cannot admit new residents quickly. Suggested referral and dtr agreeable, no agency preference. Also suggested [facility], dtr aware of this resource. Suggested [facility] adult day program ( no longer in [place], [place] only) and suggested contacting [facility]/memory care facilities to inquire about respite bed availability. Dtr agreeable. Ended this visit by explaining that if patient is admitted to the acute care floor it would likely be under an observation stay, w/the expectation that patient would only stay for 24-48 hrs. Explained that observation is billed as an outpatient expense and there is a chance that there will be a greater out of pocket expense to patient/spouse. Dtr aware and agreeable to observation admission. Updated Dr Cerna and Dr Sarabia, suggested ED INTERVENTION MANAGER and/kerrick kleaner operator get patient up to see if she can participate in transfers ? If so, patient can return home w/family to continue their efforts to secure outpatient resources vs respite stay. Now According to Dr Cerna, patient failed transfer/walking trial and does not feel this is a safe DCP from the ER, Dr Sarabia to admit to the acute care floor under observation for generalized weakness, failure to thrive. NELDA Christina Discharge Planning/Care Management CM Discharge Assessment Start: 11/03/20 15:29 Freq: Status: Active Protocol: Document 11/03/20 15:29 EVAN (Rec: 11/03/20 15:34 [id number]) Discharge Planning Assessment Assigned Clinical Research Manager NELDA Christina DPOA/Assigned Designee Name Terry Bowling, spouse P# [phone] Contact Information Ilsa Bernal dtr P# Advance Directives? Yes: Health care directive History Provided By Family Member Prior Living Arrangements House Household Members spouse Independent with ADL's No: Recent decline, requires assist w/all ADLs Is patient alert and oriented? No, Dementia Needs Assistance With Bathing,Grooming,Meal Prep, Toileting,Managing Medications ,Home Chores / Shopping Patient/Family Preference Home with Home Health Comment See Narrative Discharge Plan Home with Home Health Transportation Arrangement Family Referrals Initiated Home Health
--- NOTE | 2020-11-03 18:16 | P.HP_ITS ---
History of Present Illness History of Present Illness Date Patient Seen: 11/03/20 Time Patient Seen: 18:16 Chief complaint: altered mental status Narrative: This is an 85-year-old female with a past medical history of dementia, obstructive sleep apnea, paroxysmal AFib on Eliquis, hypertension, hyperlipidemia who was brought into the emergency room with concerns about the patient's mobility. According to her yesterday, the patient was in the bathroom standing and unable to move for a brief period of time. She could not move her legs and needed to be helped back. She did not lose her balance and she did not fall, but she has had increasing falls recently. She has a history of some difficulty with her right foot dropping, and this was noted as far back as last month with an outpatient physical therapy appointment. The patient does not recall why she is here currently. She denies any current complaints including pain, chest pain, shortness of breath, abdominal pain, nausea, vomiting. She was seen in her primary care office yesterday and started mirtazapine. In the emergency room, the patient was mildly hypertensive but the remainder of her vital signs are unremarkable. Laboratory evaluation was unremarkable. CT imaging of her head including CT and CT angiogram were unremarkable and showed no acute abnormalities. Patient felt to be an unsafe discharge in the ER, extensive social work evaluation performed and resources provided. 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 Social History: household members spouse Prior Living Arrangements House lives independently No caregiver/support person Yes: Terry other one daughter, an RN, visits weekly Safety & Behavioral: Feels Safe in Current Yes Environment Been Physically Hurt or No Threatened By a Person Tobacco & Substance use: Smoking Status Former smoker Substance Use Type does not use Meds Home Medications and Allergies Home Medications Medication Instructions Recorded Confirmed Type cholecalciferol (vitamin D3) 25 1,000 unit PO QDAY #0 07/24/16 11/02/20 History mcg (1,000 unit) tablet (Vitamin D3) Respironics DreamStation Auto CPAP #1 ea 03/30/18 11/02/20 History Handicap Placard #1 ea 05/11/19 11/02/20 Rx cyanocobalamin (vitamin B-12) 1,000 mcg PO Q DAY #0 tab 06/01/19 11/02/20 History 1,000 mcg tablet,extended release latanoprost 0.005 % eye drops 1 drop EYE-BOTH ml 06/01/19 11/02/20 History apixaban 5 mg tablet (Eliquis) 5 mg PO BID #60 tab 07/18/19 11/02/20 Rx diltiazem HCl 120 mg 120 mg PO QAM #30 cap 07/27/19 11/02/20 Rx capsule,extended release 24 hr losartan 25 mg tablet 25 mg PO DAILY 12/23/19 11/02/20 History potassium chloride 20 mEq 20 meq PO DAILY 12/23/19 11/02/20 History tablet,extended release flecainide 50 mg tablet 50 mg PO Q12H tab 03/31/20 11/02/20 History hydrochlorothiazide 25 mg tablet See Rx Instructions .ROUTE 06/06/20 11/02/20 Rx .COMPLEX #90 tab miscellaneous medical supply #1 ea 06/22/20 11/02/20 Rx miscellaneous medical supply See Rx Instructions .ROUTE 06/22/20 11/02/20 Rx .COMPLEX #1 ea memantine 10 mg tablet See Rx Instructions .ROUTE 09/13/20 11/02/20 Rx .COMPLEX #180 tab simvastatin 10 mg tablet See Rx Instructions .ROUTE 09/17/20 11/02/20 Rx .COMPLEX #90 tab mirtazapine 7.5 mg tablet 7.5 mg PO BEDTIME #30 tab 11/02/20 11/02/20 Rx Allergies Allergy/AdvReac Type Severity Reaction Status Date / Time No Known Drug Allergies Allergy Verified 11/03/20 15:41 Review of Systems Review of Systems Narrative: All other systems reviewed with the patient and are negative unless otherwise stated. Exam Vital Signs (past 8 hours): - 11/03/20 10:20 11/03/20 10:21 11/03/20 10:30 Temperature 98.5 F Pulse Rate 68 68 67 Respiratory Rate 15 Blood Pressure 137/62 137/62 133/66 Pulse Oximetry 95 96 97 11/03/20 11:00 11/03/20 11:36 11/03/20 12:00 Temperature Pulse Rate 64 49 L 63 Respiratory Rate 16 13 Blood Pressure 140/65 Pulse Oximetry 97 94 98 11/03/20 12:30 11/03/20 13:00 11/03/20 13:30 Temperature Pulse Rate 66 64 62 Respiratory Rate 14 19 21 Blood Pressure Pulse Oximetry 97 98 98 11/03/20 14:00 11/03/20 14:30 11/03/20 15:00 Temperature Pulse Rate 62 62 68 Respiratory Rate 25 H 27 H 16 Blood Pressure 140/65 Pulse Oximetry 98 99 97 11/03/20 15:30 11/03/20 16:45 Temperature 97.4 F L Pulse Rate 65 68 Respiratory Rate 12 18 Blood Pressure 173/68 H Pulse Oximetry 97 95 Oxygen Delivery Method Room Air Oxygen Flow Rate 0 Narrative Exam Narrative: GENERAL APPEARANCE: Well developed, well nourished, in no acute distress. Pleasantly confused SKIN: Inspection of the skin reveals no rashes, ulcerations or petechiae. HEENT: Normocephalic atraumatic, extraocular muscles are intact, oropharynx is clear and mucous membranes are moist, neck is supple without adenopathy NECK: Supple and symmetric. There was no thyroid enlargement, and no tenderness, or masses were felt. CHEST: Normal AP diameter and normal contour without any kyphoscoliosis. LUNGS: Auscultation of the lungs revealed no wheezes, rhonchi, or rales. CARDIOVASCULAR: There was a regular rate and rhythm without any murmurs, gallops, rubs. Peripheral pulses were 2+ and symmetric. ABDOMEN: Soft, nontender, nondistended MUSCULOSKELETAL: There was no tenderness or effusions noted. Muscle strength and tone were normal. EXTREMITIES: No cyanosis, clubbing or edema. NEUROLOGIC: Alert and oriented to person only. Strength is +5/5 in the Upper Extremities and Lower Extremities Bilaterally and equal, legs weak but able to lift off of bed. Sensation to touch was normal in all extremities. Objective ECG Impression: NSR with PVC. Labs Result Diagrams: 11/03/20 10:49 11/03/20 10:49 Labs: Laboratory Results - last 24 hr 11/03/20 11/03/20 11/03/20 10:49 10:49 12:20 WBC 9.4 RBC 4.27 Hgb 13.2 Hct 39.2 MCV 91.7 MCH 31.0 MCHC 33.8 RDW 13.4 Plt Count 244 Neut % (Auto) 84.1 H Lymph % (Auto) 9.1 L [place] % (Auto) 6.2 Eos % (Auto) 0.2 L Baso % (Auto) 0.4 Neut # (Auto) 7900 H Lymph # (Auto) 800 L [place] # (Auto) 600 Eos # (Auto) 0 Baso # (Auto) 0 Sodium 138 Potassium 3.6 Chloride 103 Carbon Dioxide 26 BUN 13 Creatinine 0.63 Estimated GFR > 60.0 BUN/Creatinine Ratio 20.6 Glucose 121 H Calcium 9.8 Total Bilirubin 0.4 AST 19 ALT 13 Alkaline Phosphatase 91 Total Creatine Kinase 38 CK-MB (CK-2) TNP CK-MB (CK-2) Rel Index TNP Troponin I < 0.012 Total Protein 7.2 Albumin 4.4 Globulin 2.8 Albumin/Globulin Ratio 1.6 Urine Color Urine Appearance Urine pH Ur Specific [place] Urine Protein Urine Glucose (UA) Urine Ketones Urine Occult Blood Urine Nitrate Urine Bilirubin Urine Urobilinogen Ur Leukocyte Esterase Urine RBC Urine WBC Ur Squamous Epith Cells Amorphous Sediment Urine Bacteria Urine Mucus Ur Culture Indicated? U Opiates 300ng/mL cut Negative Ur Oxycodone Screen Negative Urine Methadone Screen Negative Ur Barbiturates Screen Negative U Tricyclic Antidepress Negative Ur Phencyclidine Scrn Negative Ur Amphetamines Screen Negative U Methamphetamines Scrn Negative Ur MDMA Scrn (Ecstasy) Negative U Benzodiazepines Scrn Negative Urine Cocaine Screen Negative U Marijuana (THC) Screen Negative SARS-CoV-2 (PCR) 11/03/20 11/03/20 12:20 13:00 WBC RBC Hgb Hct MCV MCH MCHC RDW Plt Count Neut % (Auto) Lymph % (Auto) [place] % (Auto) Eos % (Auto) Baso % (Auto) Neut # (Auto) Lymph # (Auto) [place] # (Auto) Eos # (Auto) Baso # (Auto) Sodium Potassium Chloride Carbon Dioxide BUN Creatinine Estimated GFR BUN/Creatinine Ratio Glucose Calcium Total Bilirubin AST ALT Alkaline Phosphatase Total Creatine Kinase CK-MB (CK-2) CK-MB (CK-2) Rel Index Troponin I Total Protein Albumin Globulin Albumin/Globulin Ratio Urine Color Yellow Urine Appearance Clear Urine pH 6.0 Ur Specific [place] 1.010 Urine Protein Negative Urine Glucose (UA) Negative Urine Ketones Negative Urine Occult Blood Trace-intact Urine Nitrate Negative Urine Bilirubin Negative Urine Urobilinogen 0.2 Ur Leukocyte Esterase Negative Urine RBC 0-1/hpf Urine WBC 0-1/hpf Ur Squamous Epith Cells 0-1 /hpf D Amorphous Sediment 1+ Urine Bacteria None seen Urine Mucus 1+ H Ur Culture Indicated? Cult not indicated U Opiates 300ng/mL cut Ur Oxycodone Screen Urine Methadone Screen Ur Barbiturates Screen U Tricyclic Antidepress Ur Phencyclidine Scrn Ur Amphetamines Screen U Methamphetamines Scrn Ur MDMA Scrn (Ecstasy) U Benzodiazepines Scrn Urine Cocaine Screen U Marijuana (THC) Screen SARS-CoV-2 (PCR) Negative Assessment & Plan Assessment & Plan narrative: This is an 85-year-old female with a past medical history of dementia, obstructive sleep apnea, paroxysmal AFib on Eliquis, hypertension, hyperlipidemia who was brought into the emergency room with concerns about the patient's mobility. Admitted given ER concern for safe discharge home. 1. weakness,failure to thrive - single event noted by overnight after starting mirtazapine theoretically could result in a movement disorder, which are frequently described though not usually after a single dose. Will hold this medication. - suspect progression of patient's dementia more likely. Similar PT note to current evaluation by me documented a month ago. - will order PT evaluation. - appreciate social work thus far. 2. dementia - hold mirtazapine. 3. MICKEY, chronic - patient not wearing CPAP 4. paroxysmal atrial fibrillation - can continue apixaban, continue home meds 5. HTN - continue home meds 6. HLD - continue home meds Code: DNR, surrogate decision maker DVT: on apixaban I have utilized all available immediate resources to obtain, update, or review the patient's current medications. COVID-19 COVID-19 status: Negative Time Spent With Patient Critical Care time: I spent a total of [] minutes of critical care time on this patient's care today; this time is exclusive of procedural time. Quality MIPS - Admit I confirm the patient?s Advance Care Plan is present, Code status is documented, Surrogate decision maker is in patient?s record [If Yes, STOP here]: Yes
[2020-11-03] MEDS: APIXABAN 5 MG TABLET PO (20:12)
--- NOTE | 2020-11-03 21:32 | PC.ADMIT ---
[email or web address] [place].[id number] Admission Note: Patient admitted to floor at 16:45 from ER, spouse present. Alert to self, pleasantly confused, and able to follow commands. Resident denies pain. NIH 3. Shown how to use call light but is forgetful so staff is doing frequent checks. Bed alarm on and brakes are locked. The patient,Salma Bowling,85 y/o, was given written information regarding hospital policies, unit procedures and contact persons. Patient's smoking status: Former smoker. Vital Signs - 8 hr 11/03/20 14:00 11/03/20 14:30 11/03/20 15:00 Temperature Pulse Rate 62 62 68 Respiratory Rate 25 H 27 H 16 Blood Pressure 140/65 Pulse Oximetry 98 99 97 11/03/20 15:30 11/03/20 16:45 11/03/20 18:58 Temperature 97.4 F L Pulse Rate 65 68 Respiratory Rate 12 18 Blood Pressure 173/68 H Pulse Oximetry 97 95 95 11/03/20 19:59 Temperature 97.5 F L Pulse Rate 73 Respiratory Rate 20 Blood Pressure 152/99 H Pulse Oximetry
[2020-11-04 02:00] VITALS: O2SAT 93; O2SAT 94
--- NOTE | 2020-11-04 04:30 | PC.NURSE ---
Pt is A and O to self. Able to sleep this shift. LS clear but diminished. HRR. Unable to do med rec as patient cannot respond to questions. BA on and pt in room by nurses station.
[2020-11-04 06:18] VITALS: BP 133/79; PULSE 60; RESP 18; TEMP 36.8; O2SAT 95
[2020-11-04 09:10] VITALS: BP 172/76; PULSE 74; RESP 14; TEMP 35.7; O2SAT 97
[2020-11-04] MEDS: APIXABAN 5 MG TABLET PO (09:16)
[2020-11-04] MEDS: dilTIAZem CD 120 MG CAP PO (09:16)
--- NOTE | 2020-11-04 10:15 | P.DS_ITS ---
History of Present Illness History of Present Illness Date Patient Seen: 11/04/20 Time Patient Seen: 10:16 Chief complaint: altered mental status Narrative: This is an 85-year-old female with a past medical history of dementia, obstructive sleep apnea, paroxysmal AFib on Eliquis, hypertension, hyperlipidemia who was brought into the emergency room with concerns about the patient's mobility. According to her yesterday, the patient was in the bathroom standing and unable to move for a brief period of time. She could not move her legs and needed to be helped back. She did not lose her balance and she did not fall, but she has had increasing falls recently. She has a history of some difficulty with her right foot dropping, and this was noted as far back as last month with an outpatient physical therapy appointment. The patient does not recall why she is here currently. She denies any current complaints including pain, chest pain, shortness of breath, abdominal pain, nausea, vomiting. She was seen in her primary care office yesterday and started mirtazapine. In the emergency room, the patient was mildly hypertensive but the remainder of her vital signs are unremarkable. Laboratory evaluation was unremarkable. CT imaging of her head including CT and CT angiogram were unremarkable and showed no acute abnormalities. Patient felt to be an unsafe discharge in the ER, extensive social work evaluation performed and resources provided. Discharge Providers Provider Date of admission: 11/03/20 15:50 Discharge Date: 11/04/20 Primary care physician: Jayna Cardona DO Consults: 11/03/20 13:13 Consult to ACTUARIAL CONSULTANT - English And Reading Instructor Stat Comment: need jail care [facility] [place] Consult: Community Health Res Need 11/03/20 19:07 Consult to Occupational Therapy Evaluate & Treat Comment: Physician Instructions: Evaluate and treat Consult to Physical Therapy Evaluate & Treat Comment: Physician Instructions: Evaluate and Treat Discharge provider: Ishmael Sarabia DO Summary Hospital Course Discharge Diagnosis: 1. weakness,failure to thrive, possible adverse reaction to new medication. 2. dementia 3. MICKEY, chronic 4. paroxysmal atrial fibrillation 5. HTN 6. HLD Hospital Course: This is an 85-year-old female with a past medical history of dementia, obstructive sleep apnea, paroxysmal AFib on Eliquis, hypertension, hyperlipidemia who was brought into the emergency room with concerns about the patient's mobility. Admitted given ER concern for safe discharge home. Her had noticed difficulty ambulating compared to her usual baseline after recently starting mirtazapine. While it is possible that this may cause a movement disorder, this is felt to be less likely and more likely a progression of her chronic dementia. She was seen and evaluated by Physical therapy the next morning and was recommended to discharge home with a four-wheel walker. Extensive social work consultation was much appreciated and resources for the family or provided. Exam Vital Signs (past 8 hours): - 11/04/20 06:18 11/04/20 09:10 Temperature 98.3 F 96.3 F L Pulse Rate 60 74 Respiratory Rate 18 14 Blood Pressure 133/79 172/76 H Pulse Oximetry 95 97 Oxygen Delivery Method Room Air Oxygen Flow Rate 0 Narrative Exam Narrative: GENERAL APPEARANCE: Well developed, well nourished, in no acute distress. Pleasantly confused. Standing upright near hospital sink, steady. SKIN: Inspection of the skin reveals no rashes, ulcerations or petechiae. LUNGS: Auscultation of the lungs revealed no wheezes, rhonchi, or rales. CARDIOVASCULAR: There was a regular rate and rhythm without any murmurs, gallops, rubs. Peripheral pulses were 2+ and symmetric. ABDOMEN: Soft, nontender, nondistended MUSCULOSKELETAL: There was no tenderness or effusions noted. Muscle strength and tone were normal. EXTREMITIES: No cyanosis, clubbing or edema. NEUROLOGIC: Alert and oriented to person only. Strength is +5/5 in the Upper Extremities and Lower Extremities Bilaterally and equal Objective Labs Result Diagrams: 11/03/20 10:49 11/03/20 10:49 Labs: Laboratory Results - last 24 hr 11/03/20 11/03/20 11/03/20 10:49 10:49 12:20 WBC 9.4 RBC 4.27 Hgb 13.2 Hct 39.2 MCV 91.7 MCH 31.0 MCHC 33.8 RDW 13.4 Plt Count 244 Neut % (Auto) 84.1 H Lymph % (Auto) 9.1 L [place] % (Auto) 6.2 Eos % (Auto) 0.2 L Baso % (Auto) 0.4 Neut # (Auto) 7900 H Lymph # (Auto) 800 L [place] # (Auto) 600 Eos # (Auto) 0 Baso # (Auto) 0 Sodium 138 Potassium 3.6 Chloride 103 Carbon Dioxide 26 BUN 13 Creatinine 0.63 Estimated GFR > 60.0 BUN/Creatinine Ratio 20.6 Glucose 121 H Calcium 9.8 Total Bilirubin 0.4 AST 19 ALT 13 Alkaline Phosphatase 91 Total Creatine Kinase 38 CK-MB (CK-2) TNP CK-MB (CK-2) Rel Index TNP Troponin I < 0.012 Total Protein 7.2 Albumin 4.4 Globulin 2.8 Albumin/Globulin Ratio 1.6 Urine Color Urine Appearance Urine pH Ur Specific [place] Urine Protein Urine Glucose (UA) Urine Ketones Urine Occult Blood Urine Nitrate Urine Bilirubin Urine Urobilinogen Ur Leukocyte Esterase Urine RBC Urine WBC Ur Squamous Epith Cells Amorphous Sediment Urine Bacteria Urine Mucus Ur Culture Indicated? U Opiates 300ng/mL cut Negative Ur Oxycodone Screen Negative Urine Methadone Screen Negative Ur Barbiturates Screen Negative U Tricyclic Antidepress Negative Ur Phencyclidine Scrn Negative Ur Amphetamines Screen Negative U Methamphetamines Scrn Negative Ur MDMA Scrn (Ecstasy) Negative U Benzodiazepines Scrn Negative Urine Cocaine Screen Negative U Marijuana (THC) Screen Negative SARS-CoV-2 (PCR) 11/03/20 11/03/20 12:20 13:00 WBC RBC Hgb Hct MCV MCH MCHC RDW Plt Count Neut % (Auto) Lymph % (Auto) [place] % (Auto) Eos % (Auto) Baso % (Auto) Neut # (Auto) Lymph # (Auto) [place] # (Auto) Eos # (Auto) Baso # (Auto) Sodium Potassium Chloride Carbon Dioxide BUN Creatinine Estimated GFR BUN/Creatinine Ratio Glucose Calcium Total Bilirubin AST ALT Alkaline Phosphatase Total Creatine Kinase CK-MB (CK-2) CK-MB (CK-2) Rel Index Troponin I Total Protein Albumin Globulin Albumin/Globulin Ratio Urine Color Yellow Urine Appearance Clear Urine pH 6.0 Ur Specific [place] 1.010 Urine Protein Negative Urine Glucose (UA) Negative Urine Ketones Negative Urine Occult Blood Trace-intact Urine Nitrate Negative Urine Bilirubin Negative Urine Urobilinogen 0.2 Ur Leukocyte Esterase Negative Urine RBC 0-1/hpf Urine WBC 0-1/hpf Ur Squamous Epith Cells 0-1 /hpf D Amorphous Sediment 1+ Urine Bacteria None seen Urine Mucus 1+ H Ur Culture Indicated? 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 Social History marital status: details: neelima Stewart number of children: 1 household members: spouse lives independently: No caregiver/support person: Yes ( Terry) housing: house other: one daughter, an RN, visits weekly Smoking Status: Former smoker alcohol intake: former Discharge Plan Discharge Plan Patient Disposition: Home Provider Discharge Comment: You were admitted to the hospital with initial difficulty walking. Did well with PT. Made some medication changes as noted below. Would stop the new medication. For now recommend stopping HCTZ, but this can be resumed if BP is high at home. Discharge orders & Medications Prescriptions: Continued cholecalciferol (vitamin D3) [Vitamin D3] 1,000 UNIT tablet 1,000 unit PO QDAY Qty: 0 RF: 0 (DME) Handicap Placard Qty: 1 RF: 0 Eliquis 5 mg tablet 5 mg PO BID Qty: 60 RF: 1 diltiazem HCl 120 mg capsule,extended release 24hr 120 mg PO QAM Qty: 30 RF: 1 flecainide 50 mg tablet 50 mg PO Q12H RF: 0 memantine 10 mg tablet See Rx Instructions .ROUTE .COMPLEX Qty: 180 RF: 1 simvastatin 10 mg tablet See Rx Instructions .ROUTE .COMPLEX Qty: 90 RF: 1 (DME) miscellaneous medical supply Misc See Rx Instructions .ROUTE .MEDSUPPLY Qty: 1 RF: 0 miscellaneous medical supply Misc See Rx Instructions .ROUTE .COMPLEX Qty: 1 RF: 0 cyanocobalamin (vitamin B-12) 1,000 mcg tablet extended release 1,000 mcg PO Q DAY Qty: 0 RF: 0 latanoprost 0.005 % drops 1 drop EYE-BOTH RF: 0 potassium chloride 20 mEq tablet extended release 20 meq PO DAILY RF: 0 losartan 25 mg tablet 25 mg PO DAILY RF: 0 (DME) [place] DreamStation Auto CPAP Qty: 1 RF: 0 Discontinued hydrochlorothiazide 25 mg tablet See Rx Instructions .ROUTE .COMPLEX Qty: 90 RF: 0 mirtazapine 7.5 mg tablet 7.5 mg PO BEDTIME Qty: 30 RF: 1 Follow up/Referrals: Jayna Cardona DO [Primary Care Provider] - Diet/Activity/Treatments Diet: Diet as Tolerated and Low-sodium Activity: As tolerated Visit Report/Discharge Packet Instructions: DI for Muscle Weakness Discharge Data Primary Care Provider: Jayna Cardona Attending Provider: Ishmael Sarabia VTE Deep Vein Thrombosis/Pulmonary Embolism Present on Admission: No
--- NOTE | 2020-11-04 10:15 | PC.NURSE ---
Assess- Patient is alert and oriented x1. She is familiar to faces and remembers her husbands name. She does not remember her last name, her birthday, and she is not aware of her surroundings. She just got up with physical therapy to the bathroom and was able to void and have a bowel movement. She is strong enough to walk but does not follow ques as well. states that patient will be discharged to home later. Her is her caregiver and she has a supportive daughter.
--- NOTE | 2020-11-04 11:06 | PT.IIE ---
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) Melanoma of nose (~2010) Memory loss Meningioma Mumps Obstructive sleep apnea of adult Pre-syncope Snoring Vision abnormalities Physical Therapy Inpatient Evaluation/Re-Eval M1 PT/OT-IP Prior Functional Status Start: 11/04/20 10:38 Freq: NEEDED Status: Active Protocol: Document 11/04/20 10:39 [facility] (Rec: 11/04/20 11:05 [facility] [id number]) Medical Review Prior Functional Status Medical History Reviewed Yes Diet/Fluid Consistency Regular Communication communication with nursing Mobility and Gait pt had been able to maneuver in her home with out a assistive device however she needed cueing for safety due to dementia. Patient has appeared to take a drastic decline in her mobility requiring asist with most ADL' s. Pt had also been seen on outpatient PT x 2 visits in September. The outpatient PT determinted she would need home health PT. Social History Household Members spouse Living Arrangements House Number of Stairs To Enter/Railing? The patient was unable to communicate if she had stairs in her home Home Equipment Manual Wheelchair M2 PT-IP Current Condition Start: 11/04/20 10:38 Freq: NEEDED Status: Active Protocol: Document 11/04/20 10:39 [facility] (Rec: 11/04/20 11:05 [facility] [id number]) Physical Therapy Current Condition Current Condition Evaluation Date 11/04/20 Treatment Diagnosis Altered mental status M3 PT-IP Subjective Start: 11/04/20 10:38 Freq: NEEDED Status: Active Protocol: Document 11/04/20 10:39 [facility] (Rec: 11/04/20 11:05 [facility] [id number]) Subjective Physical Therapy Visit Comments Patient Comments Pt is agreeable to PT, pt is alert and orientated x 1 M4 PT-IP Mobility and Gait Start: 11/04/20 10:38 Freq: NEEDED Status: Active Protocol: Document 11/04/20 10:39 [facility] (Rec: 11/04/20 11:05 [facility] [id number]) PT-Bed Mobility Assessment Rolling Level of Assist Moderate Assistance Supine to Sit Supine to Sit Moderate Assistance Sit to Supine Sit to Supine Maximum Assistance Scooting Scooting to Edge of Bed Moderate Assistance Scooting Up and Down in Bed Maximum Assistance PT-Transfer Assessment Sit to and From Stand Sit to and from Stand Moderate Assistance Equipment Transfer Assistive Device Front Wheeled Walker Transfers Transfer Destination Toilet Transfer Technique Stand Step Pivot Transfer Ability Level of Assist Moderate Assistance Comments Mobility Comments pt is physicaly strong enough to transfer and ambulate however she requires a great amount of cueing and does not demonstrate motor planning ability such as how to sit down on the toilet. She requires verbal cueing for this. She was able to transfer from bed to the FWW but needed cues to stay close to the walker for ambulation to the bathroom. After she used the bathroom she was able to ambulate to the sink and stood at the sink without loss of balance to wash her hands, comb her hair, and brush her teeth. Gait Assessment Gait Gait Assistance Required: Moderate Assistance Distance (Feet) 15 Able to Maintain Weight Bearing Status Yes During Gait Assistive Devices Assistive Device Front Wheeled Walker Gait Deviations General Gait Pattern Decreased Stride Length Factors Limiting Gait Function Factors Limiting Gait Function Difficulty Following Directions,Poor Safety Awareness Comments Gait Comments Pt needed verbal cues to stay close the the walker and for walker placement PT-Balance Assessment Sitting Balance and Reactions Static Sitting Balance Ability Good Dynamic Sitting Balance Ability Good Standing Balance and Reactions Static Standing Balance Ability Good Dynamic Standing Balance Ability Good M5 PT-IP Objective Assessments Start: 11/04/20 10:38 Freq: NEEDED Status: Active Protocol: Document 11/04/20 10:39 [facility] (Rec: 11/04/20 11:05 [facility] [id number]) Orientation Orientation/Cognition Level of Alertness Alert Orientation Name Language Function Ability Word Finding Difficulties Safety Awareness Decreased Safety Awareness Comments pt does not remember any details regarding her home, she could not remember why she was in the hospital, needed verbal cues for how to motor plan transfers Gross Range of Motion Upper Extremity ROM Assessment Within Functional Limits Lower Extremity ROM Assessment Within Functional Limits Strength Upper Extremity Strength Assessment Within Functional Limits Lower Extremity Strength Assessment Within Functional Limits M7 PT-IP Assessment and Plan Start: 11/04/20 10:38 Freq: NEEDED Status: Active Protocol: Document 11/04/20 10:39 [facility] (Rec: 11/04/20 11:05 [facility] [id number]) PT Summary Assessment and Plan Potential Rehabilitation Potential Good Status of Condition at Evaluation Evolving Summary Impairments Cognition Assessment Summary pt is a 85 year old female admitted with altered mental status. She resides in [place] and was brought into the ER by family for concern of generalized weakness and altered mental status. PT has appeared to take a drastic decline in the last 2 weeks requiring assist with most ADL 's. With examination today the patient has the strength to perform transfers and gait however she needs many verbal cues to do these tasks. She did require max A x2 to assist her in scooting up in bed but all other mobility she was able to assist with. She also stood at the sink to wash her hands, comb her hair, and brush her teeth without loss of balance. I recommend a FWW for home and in home care to help assist her in taking care of her. Goals Bed Mobility Goal Contact Guard Assistance Transfer Goal Contact Guard Assistance Gait Goal Contact Guard Assistance Frequency of Treatment Frequency Of Treatment Once a Day Treatment Plan Physical Therapy Treatment Plan Bed Mobility Training,Transfer Training,Gait Training Recommendations To Nursing Amount of Assist Needed 1 Person Assist Discharge Recommendations PT Discharge Recommendations Home with Assistance Other Discharge Recommendations FWW for home
[2020-11-04 12:00] VITALS: BP 167/72; PULSE 71; RESP 14; TEMP 36.1; O2SAT 96
--- NOTE | 2020-11-04 12:26 | CM.DPNOTE ---
DC Note DC order has been placed today. Reviewed PT note, patient cleared for return home w/family to assist. Patient requiring cues for safe ambulation but able to participate in ambulation and ADLs. 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 Spouse Jagjit planning to come in for cg training today, which dtr Ilsa suggested. Spoke w/PT Mary Kay who agreed to checking in w/spouse upon arrival and discuss safe techniques for assisting patient during home ambulation. Faxed completed and signed F2F and HH order to [facility], placed call to Rossy at [facility], asked if patient would qualify for their more extensive HH service through the [facility] program? Rossy still unsure and has asked that her Site Administrator review for patient's eligibility. If not [facility], patient will qualify for typical HH services which are expected to begin Thursday 9.8.21 Plan: DC home w/family, [facility] ...and continued coordination w/terminal press operator care insurance rep and in home cg agencies to secure additional care for patient at home. Transport via spouse's auto JW
--- NOTE | 2020-11-04 13:58 | PT-IP ANOTE ---
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 This PT met with pt's and discussed recommendation for FWW and / assist with all mobility. Pt has all other necessary equipment at home. Pt's spouse indicated he would acquire FWW privately and appreciated consult.
== END 2020-11-04 14:00 | disposition home or self-care (01) ==
LOC: ED 14:10 → AC 15:51
PROVIDERS: Admitting Provider Internal Medicine; Emergency Provider Emergency Medicine; Family Provider Family Medicine; PCP Family Medicine; Referring Provider Emergency Medicine; Visit Provider Internal Medicine
DX: R41.82 Altered mental status, unspecified (principal); R53.1 Weakness; G30.9 Alzheimer's disease, unspecified; F02.80 Dementia in other diseases classified elsewhere, unspecified severity, without behavioral disturbance, psychotic disturbance, mood disturbance, and anxiety; Z91.81 History of falling; R62.7 Adult failure to thrive; I48.0 Paroxysmal atrial fibrillation; G47.33 Obstructive sleep apnea (adult) (pediatric); I10 Essential (primary) hypertension; E78.5 Hyperlipidemia, unspecified; Z79.01 Long term (current) use of anticoagulants; Z20.822 Contact with and (suspected) exposure to COVID-19
CPT/HCPCS: 36415; 36592; 70450; 70496; 70498; 80053; 80305; 81001; 82550; 84484; 85025; 87635; 93005; 96360; 96361; 97161; 97530; 99285; C9803; G0378; Q9967

== ENCOUNTER → 2020-12-05 09:19 | Outpatient (CLI) | payer MEDICARE, SELFPAY ==
[2020-11-03 16:11] VITALS: BMI 27.6
--- NOTE | 2020-12-05 | DI.ECHO.S_ITS ---
[place] +---------+ Hospital +---------+ : : [address] : : : : [id number] : : : : Phone: [phone] Echocardiogram Report + + :Name: HIRA WHITTAKER Study Date: 12/05/2020 Height: 62 in : :[facility] ReadingLocation: Weight: 130 lb : : Gender: Female BSA: 1.6 m2 : :: 1935 Age: 85 yrs BP: 130/83 mmHg: :Reason For Study: ATRIAL FIBRILLATION : :Ordering Physician: Alyssa HILLIARDformed By: Anusha Stern : :Referring: ASHLEY HILLIARD : + + Interpretation Summary The ejection fraction is estimated to be 60-65%. The right ventricle is normal in size and function. There is mild tricuspid regurgitation. Trace pericardial effusion. Procedure: A two-dimensional transthoracic echocardiogram with color flow and Doppler was performed in limited views only to assess ejection fraction and wall motion.. The study quality was technically adequate. Comparison is made with the echocardiogram of 05/25/2019. The patient was in atrial fibrillation with heart rates between 60-84 bpm during the exam. Left Ventricle: The left ventricle is normal in size and wall thickness. The ejection fraction is estimated to be 60-65%. Right Ventricle: The right ventricle is normal in size and function. Atria: Both atria are normal in size. Mitral Valve: The mitral valve is normal. Aortic Valve: The aortic valve is trileaflet. The aortic valve opens well. Tricuspid Valve: There is mild tricuspid regurgitation. Pulmonic Valve: The pulmonic valve is not well visualized. Great Vessels: The aortic root is normal size. Pericardium/ Pleura Trace pericardial effusion. There is an anterior echo- free space consistent with a fat pad. There is no pleural effusion. MMode/2D Measurements & Calculations LVIDd: 3.7 cm LA A2 area: 14.1 cm2 LVIDs: 2.6 cm LA A4 area: 13.0 cm2 FS: 29.9 % LA length (vol): 4.1 cm IVSd: 0.92 cm LA vol: 38.3 ml LVPWd: 0.76 cm LA vol index: 24.1 ml/m2 LV valle. diameter/BSA (cm/m^2): 2.3 LV sys. diameter/BSA (cm/m^2): 1.6 RA long axis: 4.4 cm RVD1 (basal): 3.4 cm RA area: 10.8 cm2 TAPSE: 1.7 cm RA vol: 22.5 ml RA : 14.2 ml/m2 Doppler Measurements & Calculations TR max dustin: 256.9 cm/sec TR max P.4 mmHg Reading Physician:03:51 PM
== END ==
PROVIDERS: Family Provider Family Medicine; PCP Family Medicine; Referring Provider Internal Medicine Cardiovascular Disease; Visit Provider Internal Medicine Cardiovascular Disease
DX: I48.0 Paroxysmal atrial fibrillation (principal); I07.1 Rheumatic tricuspid insufficiency; I31.3 Pericardial effusion (noninflammatory)
CPT/HCPCS: 93307

== ENCOUNTER → 2021-01-18 13:45 | Outpatient (CLI) | payer MEDICARE, SELFPAY ==
[2020-11-03 16:11] VITALS: BMI 27.6
[2021-01-18] MEDS: COVID-19 VACC #3, MRNA(MOD) 50 MCG/0.25 ML VIAL IM (13:52)
== END ==
PROVIDERS: Family Provider Family Medicine; PCP Family Medicine; Visit Provider Internal Medicine
DX: Z23 Encounter for immunization (principal)
CPT/HCPCS: 0013A; 91301

== ENCOUNTER → 2021-03-04 15:34 | Outpatient (CLI) | payer MEDICARE, SELFPAY ==
[2020-11-03 16:11] VITALS: BMI 27.6
[2021-03-04 16:51] LABS: Add Manual Diff / Slide Review NO; Basophils Absolute Auto 0 /uL (0-100); Basophils Percent Auto 0.4 % (0-2); Eosinophils Absolute Auto 100 /uL (0-450); Hematocrit 35.7 % (36-46); Lymphocytes Absolute Auto 900 /uL (1100-4500); Lymphocytes Percent Auto 12.9 % (25-40); Mean Corpuscular HGB Conc 33.8 % (30-36); Mean Corpuscular Hemoglobin 29.5 PG (26-34); Mean Corpuscular Volume 87.5 fL (80-100); Monocytes Absolute Auto 500 /uL (0-900); Monocytes Percent Auto 7.9 % (3-14); Neutrophils Absolute Auto 5400 /uL (1500-7000); Neutrophils Percent Auto 77.8 % (50-75); Platelet Count 241 X10^3/uL (150-400); Red Blood Cell Count 4.08 X10^6/uL (4.0-5.2); Red Cell Distribution Width 14.1 % (11.6-14.8); White Blood Cell Count 6.9 X10^3/uL (4.5-11.0)
[2021-03-04 18:06] LABS: Alanine Aminotransferase 13 IU/L (<35); Albumin 3.9 g/dL (3.5-5.0); Albumin Globulin Ratio 1.5 (1.0-2.8); Alkaline Phosphatase 76 U/L (38-126); Aspartate Aminotransferase 20 IU/L (14-36); BUN Creatinine Ratio 15.7 (6-22); Bilirubin Total 0.2 mg/dL (0.2-1.3); Blood Urea Nitrogen 14 mg/dL (7-17); Calcium 10.1 mg/dL (8.4-10.2); Carbon Dioxide 30 mmol/L (22-32); Chloride 103 mmol/L (98-107); Estimated Glomerular Filt Rate > 60.0 mL/min (>60); Globulin 2.6 g/dL (1.7-4.1); Glucose 134 mg/dL (80-110); HEMOLYSIS < 15 (0-50); Potassium 3.8 mmol/L (3.4-5.1); Sodium 139 mmol/L (137-145); Total Protein 6.5 g/dL (6.3-8.2)
== END ==
PROVIDERS: Family Provider Family Medicine; PCP Family Medicine; Referring Provider Family Medicine; Visit Provider Family Medicine
DX: R19.7 Diarrhea, unspecified (principal); R53.1 Weakness
CPT/HCPCS: 36415; 80053; 85025

== ENCOUNTER 2021-04-25 17:53 | Inpatient (IN) | payer MEDICARE, SELFPAY ==
[2020-11-03 16:11] VITALS: BMI 27.6
[2021-04-25 18:07] VITALS: BP 143/71; PULSE 77; RESP 17; TEMP 36.3; O2SAT 96; BMI 23.2
[2021-04-25] MEDS: SODIUM CHLORIDE 0.9% 1,000 ML 1000 ML IV (22:40)
[2021-04-25 22:52] VITALS: PULSE 70; RESP 20
[2021-04-25 22:53] VITALS: BP 180/77; PULSE 67; RESP 17; O2SAT 98
[2021-04-25 22:56] LABS: Hematocrit 38.8 % (36-46); Hemoglobin 12.7 g/dL (12.0-16.0); Mean Corpuscular HGB Conc 32.8 % (30-36); Mean Corpuscular Hemoglobin 28.2 PG (26-34); Mean Corpuscular Volume 85.9 fL (80-100); Platelet Count 296 X10^3/uL (150-400); Red Blood Cell Count 4.52 X10^6/uL (4.0-5.2); Red Cell Distribution Width 14.3 % (11.6-14.8); White Blood Cell Count 9.1 X10^3/uL (4.5-11.0)
[2021-04-25 22:57] LABS: Add Manual Diff / Slide Review YES
[2021-04-25 22:58] LABS: Alanine Aminotransferase 11 IU/L (<35); Albumin Globulin Ratio 1.3 (1.0-2.8); Alkaline Phosphatase 95 U/L (38-126); Aspartate Aminotransferase 19 IU/L (14-36); BUN Creatinine Ratio 28.1 (6-22); Bilirubin Total 0.5 mg/dL (0.2-1.3); Blood Urea Nitrogen 18 mg/dL (7-17); Calcium 9.8 mg/dL (8.4-10.2); Carbon Dioxide 25 mmol/L (22-32); Chloride 107 mmol/L (98-107); Estimated Glomerular Filt Rate > 60.0 mL/min (>60); Globulin 3.1 g/dL (1.7-4.1); Glucose 120 mg/dL (80-110); HEMOLYSIS < 15 (0-50); Potassium 3.5 mmol/L (3.4-5.1); Sodium 141 mmol/L (137-145); Total Protein 7.1 g/dL (6.3-8.2)
[2021-04-25 23:00] VITALS: BP 152/66; PULSE 71; RESP 18; O2SAT 96
[2021-04-25 23:30] VITALS: BP 122/69; PULSE 66; RESP 19; O2SAT 95
[2021-04-26] VITALS (20 sets, daily range): BP systolic 130–181; BP diastolic 47–70; PULSE 64–73; RESP 15–21; TEMP 36.2–36.4; O2SAT 94–100; BMI 23.2
--- NOTE | 2021-04-26 00:01 | ED_ITS ---
HPI - Altered Mental Status General Chief Complaint: Altered Mental Status Stated Complaint: Diarrhea/Dehydration/Increased Confusion Time Seen by Provider: 04/25/21 23:46 Source: family Mode of arrival: Wheelchair History of Present Illness HPI narrative: Patient is an 85-year-old female history of atrial fibrillation presenting today with decreased mental status. Daughter states that she lives at home with her she has had copious amounts of diarrhea for the last 6 days however today she did have a formed bowel movement. She occasionally is nauseous in maybe vomited 1 or 2 times over the that time. However today she is diffusely weak. She does walk with a walker she is usually able to get herself to and from the bathroom she occasionally needs help getting dressed she feeds herself however today requiring significantly more help. She denies any significant abdominal pain, chest pain shortness of breath or fever. Daughter states this is not her baseline mental status. She is mumbling which is also apparently a bnormal. Moving all extremities. Related Data Home Medications Medication Instructions Recorded Confirmed Respironics DreamStation Auto CPAP #1 ea 03/30/18 04/09/21 Previous Rx's Medication Instructions Recorded Handicap Placard #1 ea 05/11/19 miscellaneous medical supply #1 ea 06/22/20 miscellaneous medical supply See Rx Instructions .ROUTE 06/22/20 .COMPLEX #1 ea diltiazem HCl 120 mg 120 mg PO QAM #90 cap 04/09/21 capsule,extended release 24 hr flecainide 50 mg tablet 50 mg PO Q12H #180 tab 04/09/21 latanoprost 0.005 % eye drops 1 drp EYE-BOTH DAILY #2.5 ml 04/09/21 losartan 25 mg tablet 25 mg PO DAILY #90 tab 04/09/21 Allergies Allergy/AdvReac Type Severity Reaction Status Date / Time No Known Drug Allergies Allergy Verified 04/25/21 18:09 Review of Systems Review of Systems ROS Unobtainable: Unobtainable due to mental status/LOC Patient History Medical History (Updated 04/26/21 @ 05:12 by Valorie Cerna DO) Accident due to mechanical fall without injury Basal cell carcinoma of skin (~2010) Chickenpox Chronic anticoagulation Dementia (~2010) Glaucoma Hearing loss Hyperlipidemia 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 Social History marital status: details: to Terry number of children: 1 household members: spouse lives independently: No caregiver/support person: Yes ( Terry) housing: house other: one daughter, an RN, visits weekly Smoking Status: Former smoker alcohol intake: former Smoking Status: Former smoker alcohol intake frequency: a few times a month Substance Use Type: does not use Exam Initial Vital Signs Initial Vital Signs: Vital Signs Temperature 97.3 F L 04/25/21 18:07 Pulse Rate 77 04/25/21 18:07 Respiratory Rate 17 04/25/21 18:07 Blood Pressure 143/71 H 04/25/21 18:07 Pulse Oximetry 96 04/25/21 18:07 GENERAL: Awake alert week 85-year-old female in no acute distress. HEENT: Head atraumatic,EOMI, pupils reactive, face symmetric, dry mucous membranes CARDIOVASCULAR: Regular rate and rhythm without murmurs, rubs or gallops. RESPIRATORY: Breath sounds equal bilaterally, no wheezes rales or rhonchi. ABDOMEN: Slight distention no scars normal bowel sounds nontender : No CVA tenderness EXTREMITIES: Normal range of motion, no clubbing or edema. 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 Scores GCS [place] coma scale eye opening: Spontaneous [place] coma scale verbal response: Words Dianna coma scale motor response: Obey commands [place] coma scale total score: 13 Course Orders Ordered: ED Orders 04/25/21 22:35 Complete Blood Count AUTO DIFF Stat Comprehensive Metabolic Panel Stat 04/26/21 00:01 CT head/brain wo con Stat Lactate (Lactic Acid) Stat Lipase Stat Troponin & CK Cardiac Panel Stat 04/26/21 00:20 Ictotest Urine Stat Urinalysis and Microscopic Stat Urine Culture Stat 04/26/21 02:51 Procalcitonin Stat 04/26/21 03:20 Blood Culture Stat 04/26/21 05:10 XR abdomen min 2V Stat 04/26/21 05:17 Education, smoking cessation ONGOING 04/26/21 05:21 Consult to Dietitian, Adult Routine 04/27/21 05:00 Comprehensive Metabolic Panel Routine Acetaminophen (Acetaminophen 325 Mg Tablet) 650 mg PO Q6HR PRN PRN Reason: Fever/Mild Pain (1-3) Enoxaparin Sodium (Enoxaparin 40 Mg/0.4 Ml Syringe) 40 mg SUBCUT DAILY TONA Sodium Chloride (Normal Saline 0.9%) 1,000 mls @ 60 mls/hr IV CONT TONA Ceftriaxone Sodium 1,000 mg/ (Sodium Chloride) 100 mls @ 200 mls/hr IV DAILY@0600 TONA Naloxone HCl (Naloxone 0.4 Mg/Ml Vial) 0.2 mg IV Q2MIN PRN PRN Reason: Opiate Reversal Ondansetron HCl (Ondansetron 4 Mg/2 Ml Inj) 4 mg IV Q8HR PRN PRN Reason: Nausea And Vomiting Discontinued Medications Sodium Chloride (Normal Saline 0.9%) 1,000 mls @ 1,000 mls/hr IV BOLUS ONE Stop: 04/25/21 19:08 Last Infusion: 04/26/21 03:40 Dose: 0 mls/hr Documented by: Admin: 04/25/21 22:40 Dose: 1,000 mls/hr Documented by: CONG Ceftriaxone Sodium 1,000 mg/ (Sodium Chloride) 100 mls @ 200 mls/hr IV NOW ONE Stop: 04/26/21 03:56 Last Infusion: 04/26/21 04:36 Dose: 0 mls/hr Documented by: Admin: 04/26/21 04:08 Dose: 200 mls/hr Documented by: HEENA Ceftriaxone Sodium 1,000 mg/ (Sodium Chloride) 100 mls @ 200 mls/hr IV NOW ONE Stop: 04/26/21 05:18 Ondansetron HCl (Ondansetron 4 Mg/2 Ml Inj) 4 mg IV NOW ONE Stop: 04/25/21 18:10 Last Admin: 04/25/21 22:40 Dose: Not Given Documented by: CONG Vital Signs Vital signs: Vital Signs - 8 hr 04/25/21 23:30 04/26/21 00:00 04/26/21 00:01 Pulse Rate 66 67 68 Respiratory Rate 19 21 21 Blood Pressure 122/69 181/70 H Pulse Oximetry 95 97 96 04/26/21 00:34 04/26/21 00:39 04/26/21 01:00 Pulse Rate 66 64 65 Respiratory Rate Blood Pressure 155/67 H Pulse Oximetry 94 97 95 04/26/21 01:01 04/26/21 01:30 04/26/21 02:00 Pulse Rate 64 72 68 Respiratory Rate Blood Pressure 157/67 H 166/68 H Pulse Oximetry 95 95 95 04/26/21 02:01 04/26/21 04:18 Pulse Rate 69 72 Respiratory Rate 18 Blood Pressure 145/67 H 147/67 H Pulse Oximetry 95 95 MDM - Altered Mental Status Lab Data Result diagrams: 04/25/21 22:35 04/25/21 22:35 Labs: Lab Results 04/25/21 04/25/21 04/25/21 Range/Units 22:35 22:35 22:35 WBC 9.1 (4.5-11.0) X10^3/uL RBC 4.52 (4.0-5.2) X10^6/uL Hgb 12.7 (12.0-16.0) g/dL Hct 38.8 (36-46) % MCV 85.9 (80-100) fL MCH 28.2 (26-34) PG MCHC 32.8 (30-36) % RDW 14.3 (11.6-14.8) % Plt Count 296 (150-400) X10^3/uL Neut % (Auto) Not Reportable Lymph % (Auto) Not Reportable Treasure % (Auto) Not Reportable Eos % (Auto) Not Reportable Baso % (Auto) Not Reportable Lymph # (Auto) Not Reportable Treasure # (Auto) Not Reportable Baso # (Auto) Not Reportable Total Counted 100 Seg Neutrophils % 84.0 H (38-70) % Band Neutrophils % 4.0 (3-7) % Lymphocytes % (Manual) 5.0 L (25-45) % Monocytes % (Manual) 4.0 (2-11) % Eosinophils % (Manual) 3.0 (2-4) % Neutrophils # (Manual) 8008 H (0512-4963) /uL RBC Morphology Normal morphology Sodium 141 (137-145) mmol/L Potassium 3.5 (3.4-5.1) mmol/L Chloride 107 (98-107) mmol/L Carbon Dioxide 25 (22-32) mmol/L BUN 18 H (7-17) mg/dL Creatinine 0.64 (0.52-1.04) mg/dL Estimated GFR > 60.0 (>60) mL/min BUN/Creatinine Ratio 28.1 H (6-22) Glucose 120 H (80-110) mg/dL Lactate (0.7-2.1) mmol/L Calcium 9.8 (8.4-10.2) mg/dL Total Bilirubin 0.5 (0.2-1.3) mg/dL AST 19 (14-36) IU/L ALT 11 (<35) IU/L Alkaline Phosphatase 95 (38-126) U/L Total Creatine Kinase 93 (30-135) U/L CK-MB (CK-2) TNP CK-MB (CK-2) Rel Index TNP Troponin I < 0.012 (0.01-0.034) ng/mL Total Protein 7.1 (6.3-8.2) g/dL Albumin 4.0 (3.5-5.0) g/dL Globulin 3.1 (1.7-4.1) g/dL Albumin/Globulin Ratio 1.3 (1.0-2.8) Lipase 37 (23-300) U/L Procalcitonin (<0.5) ng/mL Urine Color Urine Appearance Urine pH (4.5-8.0) Ur Specific [place] (1.000-1.035) Urine Protein (Negative) Urine Glucose (UA) (Negative) g/dL Urine Ketones (NEGATIVE) Urine Occult Blood (Negative) Urine Nitrate (Negative) Urine Bilirubin (NEGATIVE) Ur Bilirubin Confirm (Negative) Urine Urobilinogen (0.2) E.U./dL Ur Leukocyte Esterase (NEGATIVE) Urine RBC (0-5/HPF) Urine WBC (0-5/HPF) Ur Squamous Epith Cells (0-5/HPF) Calcium Oxalate Crystal Urine Bacteria (None) Urine Mucus (Negative) Urine Yeast (None) Ur Culture Indicated? 04/25/21 04/25/21 04/26/21 Range/Units 22:35 22:35 00:20 WBC (4.5-11.0) X10^3/uL RBC (4.0-5.2) X10^6/uL Hgb (12.0-16.0) g/dL Hct (36-46) % MCV (80-100) fL MCH (26-34) PG MCHC (30-36) % RDW (11.6-14.8) % Plt Count (150-400) X10^3/uL Neut % (Auto) Lymph % (Auto) Treasure % (Auto) Eos % (Auto) Baso % (Auto) Lymph # (Auto) Treasure # (Auto) Baso # (Auto) Total Counted Seg Neutrophils % (38-70) % Band Neutrophils % (3-7) % Lymphocytes % (Manual) (25-45) % Monocytes % (Manual) (2-11) % Eosinophils % (Manual) (2-4) % Neutrophils # (Manual) (5878-8534) /uL RBC Morphology Sodium (137-145) mmol/L Potassium (3.4-5.1) mmol/L Chloride (98-107) mmol/L Carbon Dioxide (22-32) mmol/L BUN (7-17) mg/dL Creatinine (0.52-1.04) mg/dL Estimated GFR (>60) mL/min BUN/Creatinine Ratio (6-22) Glucose (80-110) mg/dL Lactate 1.1 (0.7-2.1) mmol/L Calcium (8.4-10.2) mg/dL Total Bilirubin (0.2-1.3) mg/dL AST (14-36) IU/L ALT (<35) IU/L Alkaline Phosphatase (38-126) U/L Total Creatine Kinase (30-135) U/L CK-MB (CK-2) CK-MB (CK-2) Rel Index Troponin I (0.01-0.034) ng/mL Total Protein (6.3-8.2) g/dL Albumin (3.5-5.0) g/dL Globulin (1.7-4.1) g/dL Albumin/Globulin Ratio (1.0-2.8) Lipase (23-300) U/L Procalcitonin 0.06 (<0.5) ng/mL Urine Color Yellow Urine Appearance Slightly cloudy Urine pH 5.0 (4.5-8.0) Ur Specific [place] >=1.030 H (1.000-1.035) Urine Protein 1+ H (Negative) Urine Glucose (UA) Negative (Negative) g/dL Urine Ketones 2+ H (NEGATIVE) Urine Occult Blood Negative (Negative) Urine Nitrate Negative (Negative) Urine Bilirubin 2+ H (NEGATIVE) Ur Bilirubin Confirm Negative (Negative) Urine Urobilinogen 0.2 (0.2) E.U./dL Ur Leukocyte Esterase Trace H (NEGATIVE) Urine RBC None seen (0-5/HPF) Urine WBC 10-30/hpf H (0-5/HPF) Ur Squamous Epith Cells 1-5 /hpf (0-5/HPF) Calcium Oxalate Crystal Few H Urine Bacteria Many (>30) H (None) Urine Mucus 2+ H (Negative) Urine Yeast 0-1/hpf (None) Ur Culture Indicated? Specimen cultured Imaging Data CT scan - head: Radiologist's Impression: PROCEDURE:? CT HEAD/BRAIN WO CON ? INDICATIONS:? altered mental status ? TECHNIQUE:? Noncontrast 4.5 mm thick angled axial sections acquired from the foramen magnum to the vertex, with coronal and sagittal reformats.? For radiation dose reduction, the following was used:? automated exposure control, adjustment of mA and/or kV according to patient size.? ? COMPARISON:? [facility], CT, CT HEAD/BRAIN WO CON, 11/03/2020, 10:48. ? FINDINGS:? Image quality:? Excellent.? ? CSF spaces:? Basal cisterns are patent.? No extra-axial fluid collections.? The ventricles are symmetric in size and shape.? ? Brain:? Unchanged 1 cm calcified lesion along the falx consistent with calcified incidental meningioma.? No intracranial bleeds or malignant masses.? There is cerebral volume loss for age, with resultant ventricular and sulcal prominence.? There are periventricular and deep white matter chronic small vessel ischemic changes.? There is intracranial internal carotid artery atherosclerosis.? ? Skull and face:? Calvarium and visualized facial bones appear intact, without suspicious lesions.? ? Sinuses:? Visualized sinuses and mastoids are clear.? ? IMPRESSION:? ? 1. Age related volume loss and small vessel ischemic change. ? 2. No evidence acute stroke, hemorrhage, or malignant mass. ? 3. Incidental 1 cm meningioma. ? ? ? Dictated by: Sushil Taylor M.D. on 04/26/2021 at 0:48 ? ? Abdominal x-ray: Radiologist's Impression: Nonspecific bowel gas pattern without evidence of obstruction or perforation MDM Narrative Medical decision making narrative: Son the patient has had gastrointestinal are all infection which seems to be improving however her mental status today has declined. She has no focal deficits head CT is negative. She does have a probable UTI but overall does not appear septic. She definitely requires assistance using the restroom some of the daughter says is normal however the rest she is requiring a lot more assistance. Her mental status is improving somewhat with IV fluids however she is not back to her baseline. Patient has UTI and metabolic encephalopathy. Carlin KAMARA accepts for observation Discharge Plan Departure Patient Disposition: Admitted as Observation Clinical Impression: Acute UTI, Acute metabolic encephalopathy Admit Date/Time: 04/26/21 05:32 Admit Provider: Jeniffer Gillis
--- NOTE | 2021-04-26 00:01 | DI.CT.S_ITS ---
PROCEDURE: CT HEAD/BRAIN WO CON INDICATIONS: altered mental status TECHNIQUE: Noncontrast 4.5 mm thick angled axial sections acquired from the foramen magnum to the vertex, with coronal and sagittal reformats. For radiation dose reduction, the following was used: automated exposure control, adjustment of mA and/or kV according to patient size. COMPARISON: [facility], CT, CT HEAD/BRAIN WO CON, 11/03/2020, 10:48. FINDINGS: Image quality: Excellent. CSF spaces: Basal cisterns are patent. No extra-axial fluid collections. The ventricles are symmetric in size and shape. Brain: Unchanged 1 cm calcified lesion along the falx consistent with calcified incidental meningioma. No intracranial bleeds or malignant masses. There is cerebral volume loss for age, with resultant ventricular and sulcal prominence. There are periventricular and deep white matter chronic small vessel ischemic changes. There is intracranial internal carotid artery atherosclerosis. Skull and face: Calvarium and visualized facial bones appear intact, without suspicious lesions. Sinuses: Visualized sinuses and mastoids are clear. IMPRESSION: 1. Age related volume loss and small vessel ischemic change. 2. No evidence acute stroke, hemorrhage, or malignant mass. 3. Incidental 1 cm meningioma. Dictated by: Sushil Taylor M.D. on 04/26/2021 at 0:48 Approved by: Sushil Taylor M.D. on 04/26/2021 at 0:50
[2021-04-26 00:04] LABS: Neutrophils Absolute Manual 8008 /uL (3000-5900); RBC Morphology Normal Morphology; Total Cells Counted 100
[2021-04-26 00:29] LABS: Creatine Kinase 93 U/L (30-135); Lactate (Lactic Acid) 1.1 mmol/L (0.7-2.1); Lipase 37 U/L (23-300)
[2021-04-26 00:42] LABS: Troponin I < 0.012 ng/mL (0.01-0.034)
--- NOTE | 2021-04-26 01:17 | PC.NURSE ---
Patient had diarrhea starting on Thursday that resolved yesterday. Had formed small stool today. Has been more confused and lethargic than normal and daughter reports I think she is dehydrated.
[2021-04-26 01:40] LABS: Bilirubin Urine UA 2+ (NEGATIVE); Color Urine UA YELLOW; Glucose Urine UA NEGATIVE (Negative); Ketones Urine UA 2+ (NEGATIVE); Leukocyte Esterase Urine UA TRACE (NEGATIVE); Nitrite Urine UA NEGATIVE (Negative); Occult Blood Urine UA NEGATIVE (Negative); Protein Urine UA 1+ (Negative); Specific Gravity Urine UA >=1.030 (1.000-1.035); Urobilinogen Urine UA 0.2 E.U./dL (0.2)
[2021-04-26 01:46] LABS: Appearance Urine UA Slightly Cloudy; Ictotest Urine Negative (Negative)
[2021-04-26 01:51] LABS: Calcium Oxalate Crystals Urine Few; RBC Urine None Seen (0-5/HPF); Squamous Epithelial Cell Urine 1-5 /HPF (0-5/HPF); WBC Urine 10-30/HPF (0-5/HPF)
[2021-04-26 01:52] LABS: Bacteria Urine Many (>30); Culture Indicated Urine Specimen Cultured; Mucus Urine 2+ (Negative)
[2021-04-26 03:31] LABS: Procalcitonin 0.06 ng/mL (<0.5)
[2021-04-26] MEDS: cefTRIAXone 1,000 MG in SODIUM CHLORIDE 0.9% 100 ML 200 ML IV ×2 (04:08→07:05)
--- NOTE | 2021-04-26 04:22 | PC.NURSE ---
pt resting on stretcher waiting bed assignment
--- NOTE | 2021-04-26 05:10 | DI.RAD.S_ITS ---
PROCEDURE: XR ABDOMEN MIN 2V INDICATIONS: distention TECHNIQUE: 2 views of the abdomen were acquired. COMPARISON: None. FINDINGS: Surgical changes and devices: None. Bowel: No pneumoperitoneum. Scattered small bowel and colonic gas. No dilated loops of bowel seen. Soft tissues: No masses; visualized solid organ contours appear normal in size. No suspicious abdominal calcifications. Bones: No suspicious bony abnormalities. IMPRESSION: Nonobstructive bowel gas pattern. If clinically indicated consider CT abdomen pelvis for further evaluation. This report is concordant with the overnight preliminary interpretation. Dictated by: Latrell Ahmadi M.D. on 04/26/2021 at 8:21 Approved by: Latrell Ahmadi M.D. on 04/26/2021 at 8:22
--- NOTE | 2021-04-26 06:24 | PC.ADMIT ---
[id number] Admission Note: The patient,Salma Bowling,85 y/o, was given written information regarding hospital policies, unit procedures and contact persons. Patient's smoking status: Former smoker. Vital Signs - 8 hr 04/25/21 22:52 04/25/21 22:53 04/25/21 23:00 Pulse Rate 70 67 71 Respiratory Rate 20 17 18 Blood Pressure 180/77 H 152/66 H Pulse Oximetry 98 96 04/25/21 23:30 04/26/21 00:00 04/26/21 00:01 Pulse Rate 66 67 68 Respiratory Rate 19 21 21 Blood Pressure 122/69 181/70 H Pulse Oximetry 95 97 96 04/26/21 00:34 04/26/21 00:39 04/26/21 01:00 Pulse Rate 66 64 65 Respiratory Rate Blood Pressure 155/67 H Pulse Oximetry 94 97 95 04/26/21 01:01 04/26/21 01:30 04/26/21 02:00 Pulse Rate 64 72 68 Respiratory Rate Blood Pressure 157/67 H 166/68 H Pulse Oximetry 95 95 95 04/26/21 02:01 04/26/21 04:18 Pulse Rate 69 72 Respiratory Rate 18 Blood Pressure 145/67 H 147/67 H Pulse Oximetry 95 95 Pt up from ED via stretcher @ 6151. No family with her to help answer admission questions. Most questions taken from ED notes. Pt confused and agitated. 3 assist to AC bed via slider board. Pt resting in bed and asks nursing staff to leave her alone.
[2021-04-26] MEDS: SODIUM CHLORIDE 0.9% 1,000 ML 60 ML IV ×2 (07:06→22:44)
[2021-04-26] MEDS: ENOXAPARIN 40 MG/0.4 ML SYRINGE SUBCUT (09:41)
--- NOTE | 2021-04-26 10:05 | PT.IIE ---
Surgical History (Last Reviewed 04/26/21 @ 12:17 by Ishmael Sarabia DO) Anesthesia History of lumpectomy (~1999) Mohs defect of nose (~2010) Status post hysterectomy (~1977) Medical History (Last Reviewed 04/26/21 @ 12:17 by Ishmael Sarabia DO) Accident due to mechanical fall without injury Basal cell carcinoma of skin (~2010) Chickenpox Chronic anticoagulation Dementia (~2010) Glaucoma Hearing loss Hyperlipidemia Measles [employer] partnerships associated with adverse incidents (08/13/20) Melanoma of nose (~2010) Memory loss Meningioma Mumps Obstructive sleep apnea of adult Poor appetite Pre-syncope Snoring Vision abnormalities Physical Therapy Inpatient Evaluation/Re-Eval M1 PT/OT-IP Prior Functional Status Start: 04/26/21 13:18 Freq: NEEDED Status: Active Protocol: Document 04/26/21 10:05 AB (Rec: 04/26/21 13:34 AB [id number]) Medical Review Prior Functional Status Medical History Reviewed Yes Communication with confusion; unable to provide PLOF and home set up Mobility and Gait pt unable to provide information regarding home set up and PLOF; per EMR: pt ambulates with a FWW and that spouse and daughter assists pt at home Social History Household Members spouse Living Arrangements House Home Equipment Front Wheel Walker M2 PT-IP Current Condition Start: 04/26/21 13:18 Freq: NEEDED Status: Active Protocol: Document 04/26/21 10:05 AB (Rec: 04/26/21 13:34 AB [email or web address]) Physical Therapy Current Condition Current Condition Evaluation Date 04/26/21 Treatment Diagnosis UTI; difficulty in walking Onset Date 04/26/21 M3 PT-IP Subjective Start: 04/26/21 13:18 Freq: NEEDED Status: Active Protocol: Document 04/26/21 10:05 AB (Rec: 04/26/21 13:34 AB [email or web address]) Subjective Physical Therapy Visit Type Type Initial Evaluation Visit Start Time 10:05 Visit Stop Time 10:40 Total Visit Minutes 35 Number of HAND PICKER Visits 0 M4 PT-IP Mobility and Gait Start: 04/26/21 13:18 Freq: NEEDED Status: Active Protocol: Document 04/26/21 10:05 AB (Rec: 04/26/21 13:34 AB [id number]) PT-Bed Mobility Assessment Supine to Sit Supine to Sit Maximum Assistance,1 Person Assistance,Head of Bed Elevated,Bedrails PT-Transfer Assessment Sit to and From Stand Sit to and from Stand Maximum Assistance,1 Person Assistance,2 Person Assistance ,Use of Upper Extremities Equipment Transfer Assistive Device Gait Belt,Front Wheeled Walker Orthotic/Prosthetic Devices or Brace: No Transfers Transfer Destination Chair Transfer Technique Stand Pivot Transfer Ability Level of Assist Maximum Assistance,1 Person Assistance,2 Person Assistance ,Use of Upper Extremities Comments Mobility Comments pt completed supine to sit max A and max cues. able to sit on EOB mod A and cues. pt with difficulty following directions and has increase posterior trunk LOB during sitting. completed sit to stand max A x 1-2 and max cues but unable to initiate and move LE to transfer requiring max A x 1-2 for pivoting and FWW management. continues to present with increase posterior trunk lean in standing requiring max A for stability. positioned pt on chair total A and cues. call light and table placed within reach. informed nurse regarding pt's mobility. Gait Assessment Comments Gait Comments unable at this time PT-Balance Assessment Sitting Balance and Reactions Static Sitting Balance Ability Fair Dynamic Sitting Balance Ability Poor Standing Balance and Reactions Static Standing Balance Ability Poor Dynamic Standing Balance Ability Poor Device Used FWW M5 PT-IP Objective Assessments Start: 04/26/21 13:18 Freq: NEEDED Status: Active Protocol: Document 04/26/21 10:05 AB (Rec: 04/26/21 13:34 AB [email or web address]) Orientation Orientation/Cognition Level of Alertness Confusional State Safety Awareness Decreased Safety Awareness Memory Description Short Term Impaired,Certified Wellness Program Manager Impaired Gross Range of Motion Lower Extremity ROM Assessment Within Functional Limits Strength Lower Extremity Strength Hip 4-/5 Knee 3+/5 Muscle Tone Muscle Tone WNL Yes M6 PT-IP Treatment Start: 04/26/21 13:18 Freq: NEEDED Status: Active Protocol: Document 04/26/21 10:05 AB (Rec: 04/26/21 13:34 AB [id number]) Physical Therapy Treatment Education Education Provided Safety M7 PT-IP Assessment and Plan Start: 04/26/21 13:18 Freq: NEEDED Status: Active Protocol: Document 04/26/21 10:05 AB (Rec: 04/26/21 13:34 AB [email or web address]) PT Summary Assessment and Plan Potential Rehabilitation Potential Fair Status of Condition at Evaluation Evolving Summary Impairments Pain,ROM,Strength,Balance, Coordination,Sensation,Tone, Cognition,Bed Mobility, Transfers,Gait,Activity Tolerance Assessment Summary pt requiring max A x 1-2 with all mobility and max cues with all tasks. Pt is inconsistent with following directions. pt will require SNF rehab at this time to improve mobility. Goals Bed Mobility Goal Minimal Assistance Transfer Goal Minimal Assistance,Front Wheeled Walker Gait Goal Minimal Assistance,Front Wheel Walker Gait Distance 50 Other Goals improve bed mobility, transfers using FWW, ambulation using FWW 100 ft SBA Days to Meet Goals 10 Frequency of Treatment Frequency Of Treatment Once a Day Treatment Plan Physical Therapy Treatment Plan Bed Mobility Training,Transfer Training,Gait Training, Therapeutic Exercise,Balance Retraining,Discharge Planning, Hot or Cold Pack,Neuromuscular Re-ed,Coordination Retraining ,Manual Therapy Precautions Other Precautions falls Recommendations To Nursing Amount of Assist Needed 2 Person Assist Discharge Recommendations PT Discharge Recommendations SNF Rehab Transportation Needs at Discharge Wheelchair/Cabulance
--- NOTE | 2021-04-26 10:53 | CM.DANOTE ---
Addendum entered by Mirina Mireles R.N. 04/26/21 14:32: Met with patient's spouse, Terry, who is at bedside. He is pleasant, he was able to update this case finisher regarding patient. He mentioned that she has a walker at home, has to remind her to use it. They have a daughter named Ilsa Bernal, who is a nurse, and lives in [place]. She is not currently working, and can check on patient frequently. They also have a neighbor who is a retired RN who assisted daughter getting patient into the car. Spouse mentioned, patient has had falls before, but not frequently. They also have a caregiver come in 2 times a week, so can go out and do errands. He stated, this patient built a repoir with her. She does need assist with showers. Asked spouse if this case finisher can call daughter, as well, and he gave permission. mentioned, the goal is for her to go home, she would have good family support. Attempted to call patient's daughter Ilsa Bernal, but was unable to reach or leave a message. Will continue to follow. Asked if patient had home health before, and he indicated, she did, but it wasn't really helpful. He stated that patient has had UTIs before, and really affects her speech, and makes her week. Will continue to follow. At this time, home is the plan. Original Note: DCP: Case received, EMR reviewed and met with patient. Patient somewhat confused, and difficult to get accurate information. Was able to obtain information based upon information available in patient's chart. DCP assessment was completed with information currently available. Patient is an 85 year old female who admitted early this morning to the care of the hospitalist team. PCP: ASAD Garcia. Payer: confirmed: [facility]. Patient came to the hospital via private vehicle secondary to increased weakness and confusion. According to notes, patient had copious amounts of diarrhea for the last 6 days. Patient uses a walker, and had been needing extra hekp getting dressed, and to the bathroom, which is not her normal. Patient holds current diagnosis of UTI, and dehydration. Attempted to meet with patient this morning. She was sitting up in bed. She was unable to tell me that she lives with her spouse. According to notes, she resides here in [place] with her spouse, Terry. She also has a daughter named Ilsa Bernal as well. P: DCP to continue to follow. Patient will be working with the therapy team. Will check back later to see if family shows up. Will see if patient improves after hydration. Mirian Mireles RN/Wick Tender Discharge Planning/Care Management CM Discharge Assessment Start: 04/26/21 10:52 Freq: Status: Active Protocol: Document 04/26/21 10:52 (Rec: 04/26/21 10:53 [id number]) Discharge Planning Assessment Assigned Unit Trust Manager Mirian Mireles RN/Wick Tender Advance Directives? Yes: Health care directive Advance Directives on File Yes History Provided By Family Member,Medical Record Prior Living Arrangements House Household Members spouse Type of transporation used prior to Relies on Others admit Independent with ADL's Yes Is patient alert and oriented? To self, but confused as to place, time, Needs Assistance With Bathing,Meal Prep,Home Chores / Shopping Caregiver for Another No DME Already Rented / Owned FWW / Walker Comment Will see how she does with the therapy team. Barriers to Discharge Yes Comment If patient does need skilled, barrier can be her dementia. Transportation Arrangement Family Referrals Initiated Other Additional Comment Pending P.T. blayneal Whiteboard Updated in Patient Room with Yes name and ext. # of Unit Trust Manager Review Status In Process Next Review Type Continued Stay Review
--- NOTE | 2021-04-26 12:08 | P.HP_ITS ---
History of Present Illness History of Present Illness Date Patient Seen: 04/26/21 Time Patient Seen: 12:08 Chief complaint: Diarrhea/Dehydration/Increased Confusion Narrative: This is an 85-year-old female with a past medical history of alzheimer's dementia, obstructive sleep apnea, paroxysmal AFib on Eliquis, hypertension, hyperlipidemia who was brought into the emergency room by her daughter. Patient is unable to participate in a subjective history due to her baseline dementia as well as an acute encephalopathy. History was gathered over the phone per her . The has noticed for the past week or so she has been less energetic compared to her usual baseline with increasing confusion and a decrease in her appetite. She became worse because about 3 days ago she developed watery diarrhea which lasted for about 36 hours but resolved yester day. denies any overt fevers or chills. The patient is unreliable but states that she feels okay at the moment, and is unaware as to why she would be in the hospital currently. In the emergency room, the patient's vital signs were unremarkable except for mild hypertension. Laboratory evaluation revealed an unremarkable CBC, and chemistry panel. Urinalysis showed 10-30 wbc's and many bacteria and was sent for culture. COVID test was not performed. Head CT performed showed no acute p athology, Abd XR shows a non-specific bowel gas pattern. 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 Social History: household members spouse Prior Living Arrangements House lives independently No caregiver/support person Yes: Terry other one daughter, an RN, visits weekly Safety & Behavioral: Feels Safe in Current Yes Environment Been Physically Hurt or No Threatened By a Person Suicidal Ideation Description None Suicide Plan Description No Plan Tobacco & Substance use: Tobacco type cigarettes Smoking Status Former smoker alcohol intake former alcohol intake frequency a few times a month Substance Use Type does not use Meds Home Medications and Allergies Home Medications Medication Instructions Recorded Confirmed Type Respironics [employer] Auto CPAP #1 ea 03/30/18 04/26/21 History Handicap Placard #1 ea 05/11/19 04/26/21 Rx miscellaneous medical supply #1 ea 06/22/20 04/26/21 Rx miscellaneous medical supply See Rx Instructions .ROUTE 06/22/20 04/26/21 Rx .COMPLEX #1 ea diltiazem HCl 120 mg 120 mg PO QAM #90 cap 04/09/21 04/26/21 Rx capsule,extended release 24 hr flecainide 50 mg tablet 50 mg PO Q12H #180 tab 04/09/21 04/26/21 Rx latanoprost 0.005 % eye drops 1 drp EYE-BOTH DAILY #2.5 ml 04/09/21 04/26/21 Rx losartan 25 mg tablet 25 mg PO DAILY #90 tab 04/09/21 04/26/21 Rx Allergies Allergy/AdvReac Type Severity Reaction Status Date / Time No Known Drug Allergies Allergy Verified 04/25/21 18:09 Review of Systems Review of Systems Narrative: All other systems reviewed with the patient and are negative unless otherwise stated. Though, this is somewhat limited given the patient's advanced dementia Exam Vital Signs (past 8 hours): - 04/26/21 04:18 04/26/21 06:10 04/26/21 09:10 Temperature 97.1 F L 97.5 F L Pulse Rate 72 73 65 Respiratory Rate 18 15 16 Blood Pressure 147/67 H 154/68 H 130/47 L Pulse Oximetry 95 96 94 04/26/21 09:45 04/26/21 09:54 Temperature Pulse Rate Respiratory Rate Blood Pressure Pulse Oximetry 97 97 Oxygen Delivery Method Room Air Oxygen Flow Rate 0 Narrative Exam Narrative: GENERAL APPEARANCE: Well developed, well nourished, in no acute distress but quite lethargic and confused. SKIN: Inspection of the skin reveals no rashes, ulcerations or petechiae. LUNGS: Auscultation of the lungs revealed no wheezes, rhonchi, or rales. CARDIOVASCULAR: irregularly irregular rhythm with a normal rate, 2/6 systolic murmur without rubs or gallops. Peripheral pulses were 2+ and symmetric. ABDOMEN: Soft, nontender, nondistended MUSCULOSKELETAL: There was no tenderness or effusions noted. Muscle strength and tone were normal. EXTREMITIES: No cyanosis, clubbing or edema. NEUROLOGIC: Alert and oriented to person only. Strength is +5/5 in the Upper Extremities and Lower Extremities Bilaterally and equal Objective Labs Result Diagrams: 04/25/21 22:35 04/25/21 22:35 Labs: Laboratory Results - last 24 hr 04/25/21 04/25/21 04/25/21 22:35 22:35 22:35 WBC 9.1 RBC 4.52 Hgb 12.7 Hct 38.8 MCV 85.9 MCH 28.2 MCHC 32.8 RDW 14.3 Plt Count 296 Neut % (Auto) Not Reportable Lymph % (Auto) Not Reportable [place] % (Auto) Not Reportable Eos % (Auto) Not Reportable Baso % (Auto) Not Reportable Lymph # (Auto) Not Reportable [place] # (Auto) Not Reportable Baso # (Auto) Not Reportable Total Counted 100 Seg Neutrophils % 84.0 H Band Neutrophils % 4.0 Lymphocytes % (Manual) 5.0 L Monocytes % (Manual) 4.0 Eosinophils % (Manual) 3.0 Neutrophils # (Manual) 8008 H RBC Morphology Normal morphology Sodium 141 Potassium 3.5 Chloride 107 Carbon Dioxide 25 BUN 18 H Creatinine 0.64 Estimated GFR > 60.0 BUN/Creatinine Ratio 28.1 H Glucose 120 H Lactate Calcium 9.8 Total Bilirubin 0.5 AST 19 ALT 11 Alkaline Phosphatase 95 Total Creatine Kinase 93 CK-MB (CK-2) TNP CK-MB (CK-2) Rel Index TNP Troponin I < 0.012 Total Protein 7.1 Albumin 4.0 Globulin 3.1 Albumin/Globulin Ratio 1.3 Lipase 37 Procalcitonin Urine Color Urine Appearance Urine pH Ur Specific [place] Urine Protein Urine Glucose (UA) Urine Ketones Urine Occult Blood Urine Nitrate Urine Bilirubin Ur Bilirubin Confirm Urine Urobilinogen Ur Leukocyte Esterase Urine RBC Urine WBC Ur Squamous Epith Cells Calcium Oxalate Crystal Urine Bacteria Urine Mucus Urine Yeast Ur Culture Indicated? 04/25/21 04/25/21 04/26/21 22:35 22:35 00:20 WBC RBC Hgb Hct MCV MCH MCHC RDW Plt Count Neut % (Auto) Lymph % (Auto) [place] % (Auto) Eos % (Auto) Baso % (Auto) Lymph # (Auto) [place] # (Auto) Baso # (Auto) Total Counted Seg Neutrophils % Band Neutrophils % Lymphocytes % (Manual) Monocytes % (Manual) Eosinophils % (Manual) Neutrophils # (Manual) RBC Morphology Sodium Potassium Chloride Carbon Dioxide BUN Creatinine Estimated GFR BUN/Creatinine Ratio Glucose Lactate 1.1 Calcium Total Bilirubin AST ALT Alkaline Phosphatase Total Creatine Kinase CK-MB (CK-2) CK-MB (CK-2) Rel Index Troponin I Total Protein Albumin Globulin Albumin/Globulin Ratio Lipase Procalcitonin 0.06 Urine Color Yellow Urine Appearance Slightly cloudy Urine pH 5.0 Ur Specific [place] >=1.030 H Urine Protein 1+ H Urine Glucose (UA) Negative Urine Ketones 2+ H Urine Occult Blood Negative Urine Nitrate Negative Urine Bilirubin 2+ H Ur Bilirubin Confirm Negative Urine Urobilinogen 0.2 Ur Leukocyte Esterase Trace H Urine RBC None seen Urine WBC 10-30/hpf H Ur Squamous Epith Cells 1-5 /hpf Calcium Oxalate Crystal Few H Urine Bacteria Many (>30) H Urine Mucus 2+ H Urine Yeast 0-1/hpf Ur Culture Indicated? Specimen cultured Assessment & Plan Assessment & Plan narrative: This is an 85-year-old female with a past medical history of alzheimer's dementia, obstructive sleep apnea, paroxysmal AFib on Eliquis, hypertension, hyperlipidemia who was brought into the emergency room by her daughter for increased lethargy, admitted with an acute metabolic encephalopathy 1. acute cystitis with metabolic encephalopathy - sepsis ruled out. SOFA score 1. - continue ceftriaxone x3 days. - follow up urine cultures. - PT / OT. 2. Alzheimer's dementia ?- hold mirtazapine. 3. MICKEY, chronic ?- patient not wearing CPAP - monitor for signs of apnea. 4. paroxysmal atrial fibrillation ?- apixaban appears to have been discontinued as an outpatient due to fall risk, though cardiology recommended to continue. - recommend repeat discussion as an outpatient regarding anticoagulation depending on goals of care. 5. HTN ?- continue home meds 6. HLD ?- continue home meds Code: DNR, surrogate decision maker is the patient's spouse Dispo: admit under observation. I have utilized all available immediate resources to obtain, update, or review the patient's current medications. Time Spent With Patient Critical Care time: I spent a total of [] minutes of critical care time on this patient's care today; this time is exclusive of procedural time. Scores GCS Dianna coma scale eye opening: Spontaneous Dianna coma scale verbal response: Confused [place] coma scale motor response: Obey commands Dianna coma scale total score: 14 SOFA PaO2/FIO2: >=400 mmHg Platelets: >= 150 Bilirubin: < 1.2 mg/dL Hypotension: MAP >= 70 mmHg Dianna Coma Scale: 13-14 Renal: < 1.2 mg/dL SOFA Score: 1 Quality MIPS - Admit I confirm the patient?s Advance Care Plan is present, Code status is documented, Surrogate decision maker is in patient?s record [If Yes, STOP here]: Yes
[2021-04-26] MEDS: dilTIAZem CD 120 MG CAP PO (12:45)
[2021-04-26] MEDS: FLECAINIDE 100 MG TABLET 50 MG PO ×2 (12:45→21:06)
--- NOTE | 2021-04-26 14:29 | DIET.CONS ---
Dietary Consultation Note Admission Date: 04/26/2021 05:32 Assessment: 85 y/o F c PMH dementia, MICKEY, Afib, HTN, and HLD. reports h/o GI disturbances managed by PCP. States they try to give her soluble fiber and fluids to help with persistent diarrhea. She presented to the ED with decreased mental status and potential UTI. reports poor PO over the last few months due to changes in her food preferences. States she is declining foods she use to enjoy and has been eating very small portions. Diet recall indicates she is meeting less than 75% of her kcal needs. Nutrition focused physical exam indicates muscle wasting in temporal region and shoulders. Diet recall: B: maybe few sips of ensure L: 75% HB egg, 1/4 muffin, apple sauce D: 4-5 oz soup Wt hx: Today: 57.6kg 03/09/21: 59.024kg (-1.4kg or -2.4% in 1-2 mo-- insignificant) 11/02/2020: 68.853kg (-11.2kg or -16% loss over 6 months -- severe) Ht: 157.48 cm Wt: 57.606 kg BMI: 23.2 UBW: 68-70kg reported Last BM: 04/26/21 (04/26/21 09:10) MNA: 9 Gabriel Score: 15 Diet: 04/26/21 Breakfast Heart Healthy Diet Diet Modifications: Nutrition Percent Meal Consumed 25% 04/26/21 09:27 Labs: RBC 4.52 X10^6/uL (4.0-5.2) 04/25/21 22:35 Hgb 12.7 g/dL (12.0-16.0) 04/25/21 22:35 Hct 38.8 % (36-46) 04/25/21 22:35 Creatinine 0.64 mg/dL (0.52-1.04) 04/25/21 22:35 Lactate 1.1 mmol/L (0.7-2.1) 04/25/21 22:35 Nutrition Diagnosis: Chronic severe PCM r/t dementia impacting food preferences and appetite aeb family report, <75% EER intake, >10% wt loss over 10 months, muscle wasting in temporal areas and boxed shoulders indicating malnutrition. Interventions: ONS BID, family education about maximizing protein intake at home, brief discussion of GI nutrition recs for diarrhea EER: [id number] kcals (25-28kcal/kg per BMI) 85-95g PRO (1.5-1.6g/kg per malnutrition) Monitoring/Evaluations: ONS tolerance, weight, PO Electronically Signed by: Nalini Chirinos 04/26/21 14:29 Clinical Dietitian [address] [address]
--- NOTE | 2021-04-26 15:00 | OT.IP.EVAL ---
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) Melanoma of nose (~2010) Memory loss Meningioma Mumps Obstructive sleep apnea of adult Poor appetite Pre-syncope Snoring Vision abnormalities Surgical History (Last Reviewed 04/26/21 @ 14:39 by Ishmael Sarabia DO) Anesthesia History of lumpectomy (~1999) Mohs defect of nose (~2010) Status post hysterectomy (~1977) Occupational Therapy Inpatient Evaluation/Re-Eval M1 PT/OT-IP Prior Functional Status Start: 04/26/21 13:18 Freq: NEEDED Status: Active Protocol: Document 04/26/21 15:27 [facility] (Rec: 04/26/21 15:49 [facility] [id number]) Medical Review Prior Functional Status Medical History Reviewed Yes Communication with confusion; unable to provide PLOF and home set up Mobility and Gait Pt's states prior pt walks with the FWW. Pt's assist to get her legs into and out of the bed. Pt needing assist to stand as well at times. Activities of Daily Living and IADL's Pt's assists with all dressing, toileting, and bathing needs. Social History Household Members spouse Living Arrangements House Home Environment Standard Height Toilet,Walk in Shower Home Equipment Front Wheel Walker,Manual Wheelchair,Shower Seat with Backrest,Grab Bars Near Toilet ,Grab Bars In Shower M2 OT-IP Current Condition Start: 04/26/21 15:26 Freq: Status: Active Protocol: Document 04/26/21 15:27 [facility] (Rec: 04/26/21 15:49 [facility] [id number]) Occupational Therapy Current Condition Current Condition Evaluation Date 04/26/21 Treatment Diagnosis Altered mental status and UTI Diagnosis Onset Date 04/26/21 M3 OT- IP Subjective and Pain Start: 04/26/21 15:26 Freq: Status: Active Protocol: Document 04/26/21 15:27 [facility] (Rec: 04/26/21 15:49 [facility] [id number]) OT- Subjective Occupational Therapy Visit Type Type Initial Evaluation Visit Start Time 14:40 Visit Stop Time 15:00 Total Visit Minutes 20 Occupational Therapy Visit Comments Patient Comments Pt agreed to get back to bed and also try to use the BSC. Patient/Caregiver Goals To go home. OT Pain Assessment Pain When Pain Assessed At Rest Pain Present Pain Present Denied Pain M4 OT- IP ADL's Start: 04/26/21 15:26 Freq: Status: Active Protocol: Document 04/26/21 15:27 [facility] (Rec: 04/26/21 15:49 [facility] [id number]) OT [id number] Comments OT Self-Feeding Comments NOt at meal time. OT ADL-Grooming Comments OT Grooming Comments Not performed. OT ADL-Oral Care Comments Oral Care Comments Not performed. OT ADL-Dressing General Eval Lower Body Dressing Ability Maximum Assistance OT ADL-Toileting General Evaluation Toileting Ability Total Assistance Areas Needing Assistance Manage Clothing,Perform Perineal Hygiene Comments OT Toileting Comments Nurse able to assist pt for brief management while therapist able to stand with pt with FWW. Per has been assist his for hygiene needs. Nursing educating him on the importance of wiping from front to back to prevent from infections. OT ADL-Bathing Comments OT Bathing Comments Not performed. M5 OT- IP IADL's Start: 04/26/21 15:26 Freq: Status: Active Protocol: Document 04/26/21 15:27 [facility] (Rec: 04/26/21 15:49 [facility] [id number]) OT-Instrumental Activities of Daily Living Home Safety Awareness Awareness of Need for Assistance at Home Decreased Awareness Ability to Problem Solve Emergency Unable to Problem Solve Situations Medication Management Medication Management Caregiver Administers Money Management Money Management Caregiver Provides Assistance Meal Preparation Meal Preparation Caregiver Provides Assist Notary Public Notary Public Caregiver Provides Assist Driving Driving Caregiver Provides Assist M6 OT- IP Functional Cognition Start: 04/26/21 15:26 Freq: Status: Active Protocol: Document 04/26/21 15:27 [facility] (Rec: 04/26/21 15:49 [facility] [id number]) Cognitive Factors Limiting Selfcare Function Cognitive Ability Level of Alertness Alert,Confusional State Patient Orientation Name Attention Span Ability Capable of Focused Attention, Capable of Sustained Attention Ability to Follow Commands Able to Follow One Step Commands with Increased Time, Able to Follow One Step Commands with Repetition Memory Description Short Term Impaired,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 Pt's states not at her baseline due to UTI. M7 OT- IP Mobility and Balance Start: 04/26/21 15:26 Freq: Status: Active Protocol: Document 04/26/21 15:27 [facility] (Rec: 04/26/21 15:49 [facility] [id number]) OT- Bed Mobility Assessment Sit to Supine Sit to Supine Assist Maximum Assistance,1 Person Assistance OT-Transfer Assessment Sit to and From Stand Sit to and from Stand Moderate Assistance,Maximum Assistance,2 Person Assistance Transfers Transfer Ability Moderate Assistance,Maximum Assistance,2 Person Assistance Technique Transfer Destination Bed,Bedside Commode,Chair Transfer Technique Stand Step Pivot Devices Transfer Assistive Devices Gait Belt,Front Wheeled Walker Comments Mobility Comments Pt does better by reaching up with left hand to FWW and pushing up with left hand to stand with FWW and assist MODA X 2 to MAX A x2. Assist to help with her balance, guide the FWW and to help get her hands into position. OT- Gait Assessment Comments Gait Ability Comments Transfer only at this time. OT- Balance Assessment Sitting Balance and Reactions Static Sitting Balance Ability Fair Dynamic Sitting Balance Ability Poor Standing Balance and Reactions Static Standing Balance Ability Poor Dynamic Standing Balance Ability Poor M8 OT- IP Objective Assessments Start: 04/26/21 15:26 Freq: Status: Active Protocol: Document 04/26/21 15:27 [facility] (Rec: 04/26/21 15:49 [facility] [id number]) OT Gross Range of Motion Upper Extremity Range of Motion Assessment Bilaterally Impaired OT Strength Comments Strength Comments Not able to fully assess due to pt's difficulty to follow commands, noted at least3-/5 throughout. OT-Muscle Tone Assessment Muscle Tone WNL Yes M9 OT- IP Assessment and Plan Start: 04/26/21 15:26 Freq: Status: Active Protocol: Document 04/26/21 15:27 [facility] (Rec: 04/26/21 15:49 [facility] [id number]) OT Summary Assessment and Plan Potential Rehabilitation Potential Good Analytic Complexity at Evaluation Moderate Summary OT Impairments Strength,Balance,Functional Cognition,Functional Mobility, Grooming,Dressing,Toileting, Bathing,Toilet Transfers, Shower Transfers,Activity Tolerance Progress Towards Goals Slow Progress due to Medical Issues,Slow Progress due to Activity Tolerance,Slow Progress due to Cognition Assessment Summary Pt MOD complexity and here due to UTI and now needing extensive two person assist for all needs. Prior pt's able to assist her with up to MODA fo rthe pt for ADl and mobility needs. Hopefully pt will medical clear from UTI and be able to go back home with her to assist. Goals Grooming Goal Standby Assistance Dressing Goal Moderate Assistance Toileting Goal Moderate Assistance Bathing Goal Minimal Assistance Toilet Transfer Goal Standby Assistance Shower Transfer Goal Standby Assistance Days to Meet Goals 10 Frequency of Treatment Frequency Of Treatment Once a Day Treatment Plan OT Treatment Plan ADL Training,Functional Cognition Training,Functional Mobility,Patient/Family Education,Discharge Planning Other Treatment Recommendations and Next transfer to [facility] [place] MODA X 1 Treatment Focus Discharge Recommendations OT Discharge Recommendations Home with 22/09 Assist Available,Home Health,SNF Rehab,Home vs SNF Transportation Needs at Discharge Private Vehicle,Wheelchair/ Cabulance
[2021-04-26 17:03] LABS: COVID19 - ADMIT (NP swab/PCR) Negative (Negative)
[2021-04-27] VITALS (10 sets, daily range): BP systolic 137–147; BP diastolic 53–69; PULSE 58–78; RESP 16–18; TEMP 35.7–37.2; O2SAT 93–96
[2021-04-27 05:51] LABS: Alanine Aminotransferase 9 IU/L (<35); Albumin 3.2 g/dL (3.5-5.0); Albumin Globulin Ratio 1.1 (1.0-2.8); Alkaline Phosphatase 82 U/L (38-126); Aspartate Aminotransferase 18 IU/L (14-36); BUN Creatinine Ratio 22.4 (6-22); Bilirubin Total 0.4 mg/dL (0.2-1.3); Blood Urea Nitrogen 11 mg/dL (7-17); Calcium 8.6 mg/dL (8.4-10.2); Carbon Dioxide 22 mmol/L (22-32); Chloride 111 mmol/L (98-107); Estimated Glomerular Filt Rate > 60.0 mL/min (>60); Globulin 2.8 g/dL (1.7-4.1); Glucose 106 mg/dL (80-110); HEMOLYSIS < 15 (0-50); Sodium 139 mmol/L (137-145)
[2021-04-27] MEDS: cefTRIAXone 1,000 MG in SODIUM CHLORIDE 0.9% 100 ML 200 ML IV (06:06)
--- NOTE | 2021-04-27 06:37 | PC.NURSE ---
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 It took considerable coxing to have pt take her evening medication crushed in applesauce. She would be come combative when staff attempt to obtain VS and check to see if voided in her briefs. Pt was allowed to sleep from 2100 to 1600 and never made an attempt to leave her bed. Around 1600 pt remained confused but less combative with staff. Staff was able to changed her briefs (dry with BM smear), bladder scan her and obtain VS. Bladder scan showed 502mL and Dr. Nichols gave verbal order to do straight caths Q8hrs for bladder scans resulting in 200cc or more. Pt tolerated straight cath well with constant redirection. 500mL output of wyatt urine.
--- NOTE | 2021-04-27 07:39 | PM.PN.1 ---
Subjective Subjective Date Patient Seen: 04/27/21 Interval history: She is seen today to follow-up her hypokalemia, dementia and urinary tract infection. She has just been admitted here yesterday. The potassium has dropped from 3.5 down to 3.0. The blood pressure is 147/69. She has been intermittently resistant to care which makes fdc facility placement a problematic. Her daughter is a nurse. She speaks to me in a very confused and barely audible voice with phrases that are difficult to perceive. Exam Vital Signs (past 8 hours): - 04/26/21 23:42 04/27/21 04:41 04/27/21 05:07 Temperature 98.9 F Pulse Rate 78 Respiratory Rate 18 Blood Pressure 147/69 H Pulse Oximetry 96 95 95 Oxygen Delivery Method Room Air Oxygen Flow Rate 0 Narrative Exam Narrative: She is confused, using barely audible phrases. No apparent distress. Heart is regular rate and rhythm without murmur Lungs are clear to auscultation bilaterally Extremities have no ankle edema Abdomen is obese, nontender, bowel sounds active. Objective Labs Result Diagrams: 04/25/21 22:35 04/27/21 05:13 Labs: Laboratory Results - last 24 hr 04/26/21 04/27/21 15:10 05:13 Sodium 139 Potassium 3.0 L Chloride 111 H Carbon Dioxide 22 BUN 11 Creatinine 0.49 L Estimated GFR > 60.0 BUN/Creatinine Ratio 22.4 H Glucose 106 Calcium 8.6 Total Bilirubin 0.4 AST 18 ALT 9 Alkaline Phosphatase 82 Total Protein 6.0 L Albumin 3.2 L Globulin 2.8 Albumin/Globulin Ratio 1.1 SARS-CoV-2 (PCR) Negative [facility] Medical History Accident due to mechanical fall without injury Basal cell carcinoma of skin (~2010) Chickenpox Chronic anticoagulation Dementia (~2010) Glaucoma Hearing loss Hyperlipidemia 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 Social History marital status: details: to Terry number of children: 1 household members: spouse lives independently: No caregiver/support person: Yes ( Terry) housing: house other: one daughter, an RN, visits weekly Smoking Status: Former smoker alcohol intake: former Assessment & Plan Assessment & Plan narrative: Assessment & Plan narrative: This is an 85-year-old female with a past medical history of alzheimer's dementia, obstructive sleep apnea, paroxysmal AFib on Eliquis, hypertension, hyperlipidemia who was brought into the emergency room by her daughter for increased lethargy, admitted with an acute metabolic encephalopathy 1. acute cystitis with metabolic encephalopathy ? - sepsis ruled out. SOFA score 1. ?- continue ceftriaxone x3 days. ?- follow up urine cultures. So far no growth of urine or blood cultures. In ?- PT / OT. 2. Alzheimer's dementia ?- hold mirtazapine. 3. MICKEY, chronic ?- patient not wearing CPAP ?- monitor for signs of apnea. 4. paroxysmal atrial fibrillation ?- apixaban appears to have been discontinued as an outpatient due to fall risk, though cardiology recommended to continue. ?- recommend repeat discussion as an outpatient regarding anticoagulation depending on goals of care. 5. HTN ?- continue home meds 6. HLD ?- continue home meds 7. Hypokalemia - 3.5 on admission 04/25, down to 3.0 on 04/27 - Daily Kcl PO started on 04/27. Code: DNR, surrogate decision maker is the patient's spouse Time Spent With Patient Critical Care time: I spent a total of [] minutes of critical care time on this patient's care today; this time is exclusive of procedural time.
[2021-04-27] MEDS: LOSARTAN 25 MG TABLET PO (09:16)
[2021-04-27] MEDS: dilTIAZem CD 120 MG CAP PO (09:16)
[2021-04-27] MEDS: ENOXAPARIN 40 MG/0.4 ML SYRINGE SUBCUT (09:16)
[2021-04-27] MEDS: POTASSIUM CHLORIDE 20 MEQ TAB PO (09:16)
[2021-04-27] MEDS: FLECAINIDE 100 MG TABLET 50 MG PO (09:28)
--- NOTE | 2021-04-27 10:45 | OT.IP.TRT ---
Current Diagnoses Urinary tract infection, site not specified (04/26/21) Occupational Therapy Treatment Note M2 OT-IP Current Condition Start: 04/26/21 15:26 Freq: Status: Active Protocol: Document 04/26/21 15:27 [facility] (Rec: 04/26/21 15:49 [facility] [id number]) Occupational Therapy Current Condition Current Condition Evaluation Date 04/26/21 Treatment Diagnosis Altered mental status and UTI Diagnosis Onset Date 04/26/21 M3 OT- IP Subjective and Pain Start: 04/26/21 15:26 Freq: Status: Active Protocol: Document 04/27/21 11:10 [facility] (Rec: 04/27/21 11:19 [facility] [id number]) OT- Subjective Occupational Therapy Visit Type Type Treatment Note Visit Start Time 10:24 Visit Stop Time 10:45 Total Visit Minutes 21 Occupational Therapy Visit Comments Patient Comments Pt agreed to get up and try to use th BSC. Patient/Caregiver Goals To go home. OT Pain Assessment Pain When Pain Assessed At Rest Pain Present Pain Present Denied Pain M4 OT- IP ADL's Start: 04/26/21 15:26 Freq: Status: Active Protocol: Document 04/27/21 11:10 [facility] (Rec: 04/27/21 11:19 [facility] [id number]) OT [id number] Comments OT Self-Feeding Comments NOt at meal time. OT ADL-Grooming General Evaluation Grooming Ability Maximum Assistance Comments OT Grooming Comments Pt not following commands and nursing assist with grooming needs to wash her face,hands and brush her hair. OT ADL-Dressing General Eval Lower Body Dressing Ability Total Assistance Comments OT Dressing Comments Total assist for brief management needs and socks. OT ADL-Toileting General Evaluation Toileting Ability Total Assistance Areas Needing Assistance Manage Clothing,Perform Perineal Hygiene Comments OT Toileting Comments MODA X 1 to stand with FWW while nurse assist for all other needs. M5 OT- IP IADL's Start: 04/26/21 15:26 Freq: Status: Active Protocol: Document 04/26/21 15:27 [facility] (Rec: 04/26/21 15:49 [facility] [id number]) OT-Instrumental Activities of Daily Living Home Safety Awareness Awareness of Need for Assistance at Home Decreased Awareness Ability to Problem Solve Emergency Unable to Problem Solve Situations Medication Management Medication Management Caregiver Administers Money Management Money Management Caregiver Provides Assistance Meal Preparation Meal Preparation Caregiver Provides Assist Log Buyer Log Buyer Caregiver Provides Assist Driving Driving Caregiver Provides Assist M6 OT- IP Functional Cognition Start: 04/26/21 15:26 Freq: Status: Active Protocol: Document 04/27/21 11:10 [facility] (Rec: 04/27/21 11:19 [facility] [id number]) Cognitive Factors Limiting Selfcare Function Cognitive Ability Level of Alertness Alert,Confusional State Cognitive Comments Cognitive Assessment Comments Pt still confused and unaware where she is at . Pt needing step by step commands and having difficulty to understand directions especially when therapist is talking with the face mask on. Pt able to follow directions much better when able to read someone's lips. OT- Vision and Hearing OT- Vision Assessment Vision Assessment Comments Pt is CHEESH-NA. M7 OT- IP Mobility and Balance Start: 04/26/21 15:26 Freq: Status: Active Protocol: Document 04/27/21 11:10 [facility] (Rec: 04/27/21 11:19 [facility] [id number]) OT- Bed Mobility Assessment Supine to Sit Supine to Sit Assist Minimal Assistance,Head of Bed Elevated,Bedrails Scooting Scooting to Edge of Bed Moderate Assistance OT-Transfer Assessment Sit to and From Stand Sit to and from Stand Moderate Assistance,Maximum Assistance,2 Person Assistance Transfers Transfer Ability Moderate Assistance,Maximum Assistance,2 Person Assistance Technique Transfer Destination Bed,Bedside Commode,Chair Transfer Technique Stand Step Pivot Devices Transfer Assistive Devices Gait Belt,Front Wheeled Walker Comments Mobility Comments Initially MAX AX 2 to stand and pt tends to lean into posterior tilt and assist to guide FWW and steady the pt. [place] [facility] [place] [facility] more of MODA X 1 and close SBA of nursing for safety. Pt needing increased time to follow commands, needing step by step commands to move her feet, for hand placement on the FWW and surfaces pushing up and sitting down to. OT- Gait Assessment Comments Gait Ability Comments Transfer only at this time. OT- Balance Assessment Sitting Balance and Reactions Static Sitting Balance Ability Good Dynamic Sitting Balance Ability Poor Standing Balance and Reactions Static Standing Balance Ability Poor Dynamic Standing Balance Ability Poor Comments Other Balance Tests/Deviations/Treatment Pt tends to lean into : posterior tilt when up on her feet. However when trying to give pt less assist pt able to stand better, however still needing increased time, step by step commands to follow and assist. M8 OT- IP Objective Assessments Start: 04/26/21 15:26 Freq: Status: Active Protocol: Document 04/26/21 15:27 [facility] (Rec: 04/26/21 15:49 [facility] [id number]) OT Gross Range of Motion Upper Extremity Range of Motion Assessment Bilaterally Impaired OT Strength Comments Strength Comments Not able to fully assess due to pt's difficulty to follow commands OT-Muscle Tone Assessment Muscle Tone WNL Yes M9 OT- IP Assessment and Plan Start: 04/26/21 15:26 Freq: Status: Active Protocol: Document 04/27/21 11:10 [facility] (Rec: 04/27/21 11:19 [facility] [id number]) OT Summary Assessment and Plan Potential Rehabilitation Potential Good Analytic Complexity at Evaluation Moderate Summary OT Impairments Strength,Balance,Functional Cognition,Functional Mobility, Grooming,Dressing,Toileting, Bathing,Toilet Transfers, Shower Transfers,Activity Tolerance Progress Towards Goals Slow Progress due to Medical Issues,Slow Progress due to Activity Tolerance,Slow Progress due to Cognition Assessment Summary Pt still needing extensive two person assist for transfer and assist for ADL's. At this time pt is too great of care for her to care for. Therefore pt may benefit from skilled rehab versus pending progress and caregiver training home with 24/7 assist and possible addition person to assist at home for pt's needs. Goals Grooming Goal Standby Assistance Dressing Goal Moderate Assistance Toileting Goal Moderate Assistance Bathing Goal Minimal Assistance Toilet Transfer Goal Standby Assistance Shower Transfer Goal Standby Assistance Days to Meet Goals 15 Frequency of Treatment Frequency Of Treatment Once a Day Treatment Plan OT Treatment Plan ADL Training,Functional Cognition Training,Functional Mobility,Patient/Family Education,Discharge Planning Other Treatment Recommendations and [place] [facility] [place] Treatment Focus Discharge Recommendations OT Discharge Recommendations Home with 24/7 Assist Available,Home Health,SNF Rehab,Home vs SNF Transportation Needs at Discharge Private Vehicle,Wheelchair/ Cabulance
--- NOTE | 2021-04-27 11:36 | PT-IP ANOTE ---
Attempted to see pt twice this morning, once at 10:45 and again at 11:36, pt refused both times and was tearful on second attempt, but unable to explain why. Will try again in PM if able.
--- NOTE | 2021-04-27 11:49 | CM.DPC ---
Addendum entered by NELDA Murray 04/27/21 12:48: ADD: Return call from spouse and updated him on HH vs SNF. Spouse states pt has no hx going to SNF and discussed pt's agitation/behaviors and possible barrier to SNF and would pt benefit from SNF or home with increased assist and HH? Spouse would be agreeable with HH or SNF pending her progress and will be bedside this afternoon and plans to update Dtr who is an RN and TINO who is a physician and very involved and supportive. SW discussed if SNF then would need pt's insurance auth for SNF and pt's current OBS Status and high likelihood of discharge tomorrow and spouse acknowledged understanding and did not argue or state concerns but plans to arrive bedside today towards help in determining SNF vs HH. Spouse also states they have put a deposit down with [facility] recently and have been on the list anticipating need for Memory Care in the near future and do not currently have a move in date but did give the deposit. BF Original Note: DCP SNF vs HH Per MD, pt improving slowly but still increased confusion from baseline dementia. Per PT/OT, spouse provides assist with all ADL's and due to pt's increased confusion pt a 1-2PA with transfers and ambulation and recommending home with 22/09 and HH vs SNF pending progress. Per RN, pt had some mild behaviors overnight/early AM but has been cooperative with therapies and staff during the day and was redirected. SW attempted to call spouse as he was not bedside and pt not able to participate in d/c planning discussion on her own and left ms requesting call back to discuss possible d/c options and barriers. SW completed F2F but will need MD signature and made referral to [facility] based on [facility] Calendar and alerted them HH vs SNF pending progress. Pt also has [employer] for insurance and SNF auth would need to be started eileen if SNF needed. Pt currently OBS Status. SW made SNF referrals to [facility] and faxed referral as well. SW called [facility] and they cannot accept over the weekend and unsure if they will have a bed on Thursday but potentially and request SW call back tomorrow (Lillie) if bed still needed and they would request faxed referral tomorrow to review. Plan: SW to follow closely for ongoing PT/OT and discussion with spouse towards determining home with HH vs SNF at d/c pending progress. Pt's dementia and [employer] insurance could be barriers to SNF. If SNF, PASRR needed. NELDA Murray
--- NOTE | 2021-04-27 15:05 | PT.IPTN ---
Current Diagnoses Urinary tract infection, site not specified (04/27/21) Physical Therapy Treatment Note M2 PT-IP Current Condition Start: 04/26/21 13:18 Freq: NEEDED Status: Active Protocol: Document 04/26/21 10:05 AB (Rec: 04/26/21 13:34 AB [email or web address]) Physical Therapy Current Condition Current Condition Evaluation Date 04/26/21 Treatment Diagnosis UTI; difficulty in walking Onset Date 04/26/21 M3 PT-IP Subjective Start: 04/26/21 13:18 Freq: NEEDED Status: Active Protocol: Document 04/27/21 15:05 AB (Rec: 04/27/21 16:10 AB [email or web address]) Subjective Physical Therapy Visit Type Type Treatment Note Visit Start Time 15:05 Visit Stop Time 15:42 Total Visit Minutes 37 Number of TILE MASON Visits 0 M4 PT-IP Mobility and Gait Start: 04/26/21 13:18 Freq: NEEDED Status: Active Protocol: Document 04/27/21 15:05 AB (Rec: 04/27/21 16:10 AB [email or web address]) PT-Bed Mobility Assessment Sit to Supine Sit to Supine Moderate Assistance,1 Person Assistance PT-Transfer Assessment Sit to and From Stand Sit to and from Stand Maximum Assistance,1 Person Assistance,Use of Upper Extremities Equipment Transfer Assistive Device Gait Belt,Front Wheeled Walker Orthotic/Prosthetic Devices or Brace: No Transfers Transfer Destination Toilet Transfer Technique ambulated Transfer Ability Level of Assist Moderate Assistance,Maximum Assistance,1 Person Assistance ,Use of Upper Extremities Comments Mobility Comments pt sitting on chair. spouse in room. pt agreed to do PT. completed sit to stand x 2 attempts max A and max cues. pt with dx of dementia and requires repeated cues with all tasks and requires increase time to complete and follow directions. pt ambulated ~ 8 ft and requested to use the toilet. ambulated to bedside commode using FWW max A with turning and max cues. completed sit to stand from bedside commode max A and max cues x 2 attempts. pt was able to maintain standing max A while NAC assisted with hygiene care and brief management. pt ambulated towards the bed using fWW mod to max A ~ 10 ft. completed sit to supine mod A for LE elevation to bed. positioned pt in bed. call light and table placed within reach. Gait Assessment Gait Gait Assistance Required: Moderate Assistance,Maximum Assistance Distance (Feet) 10 Able to Maintain Weight Bearing Status Yes During Gait Assistive Devices Assistive Device Gait Belt,Front Wheeled Walker Orthotic/Prosthetic Devices or Brace: No Gait Deviations General Gait Pattern Decreased Stride Length, Decreased Feet Clearance,Step- to Gait Factors Limiting Gait Function Factors Limiting Gait Function Decreased Activity Tolerance, Decreased Strength,Difficulty Following Directions,Limited Range of Motion,Poor Balance, Poor Safety Awareness M5 PT-IP Objective Assessments Start: 04/26/21 13:18 Freq: NEEDED Status: Active Protocol: Document 04/26/21 10:05 AB (Rec: 04/26/21 13:34 AB [email or web address]) Orientation Orientation/Cognition Level of Alertness Confusional State Safety Awareness Decreased Safety Awareness Memory Description Short Term Impaired,Alf Impaired Gross Range of Motion Lower Extremity ROM Assessment Within Functional Limits Strength Lower Extremity Strength Hip 4-/5 Knee 3+/5 Muscle Tone Muscle Tone WNL Yes M6 PT-IP Treatment Start: 04/26/21 13:18 Freq: NEEDED Status: Active Protocol: Document 04/27/21 15:05 AB (Rec: 04/27/21 16:10 AB [email or web address]) Physical Therapy Treatment Education Education Provided Safety M7 PT-IP Assessment and Plan Start: 04/26/21 13:18 Freq: NEEDED Status: Active Protocol: Document 04/27/21 15:05 AB (Rec: 04/27/21 16:10 AB [email or web address]) PT Summary Assessment and Plan Potential Rehabilitation Potential Fair Summary Impairments Pain Progress Towards Goals Slow Progress due to Activity Tolerance,Slow Progress - Other Assessment Summary pt progressing slowly and able to follow directions better today compared to yesterday. completed ambulation using FWW mod to max A and max cues. will continue to assess progress. d/c plan depending if family will be able to provide pt necessary assistance and will conduct caregiver training when appropriate but at this time, will require SNF rehab. Goals Bed Mobility Goal Minimal Assistance Transfer Goal Minimal Assistance,Front Wheeled Walker Gait Goal Minimal Assistance,Front Wheel Walker Gait Distance 50 Other Goals improve bed mobility, transfers using FWW, ambulation using FWW 100 ft SBA Days to Meet Goals 10 Frequency of Treatment Frequency Of Treatment Once a Day Treatment Plan Physical Therapy Treatment Plan Bed Mobility Training,Transfer Training,Gait Training, Therapeutic Exercise,Balance Retraining,Discharge Planning, Hot or Cold Pack,Neuromuscular Re-ed,Coordination Retraining ,Manual Therapy Precautions Other Precautions falls Recommendations To Nursing Amount of Assist Needed 2 Person Assist Discharge Recommendations PT Discharge Recommendations SNF Rehab Transportation Needs at Discharge Wheelchair/Cabulance
--- NOTE | 2021-04-27 21:55 | PC.NURSE ---
Addendum entered by Bernice Manuel R.N. 04/28/21 05:58: pt more cooperative with care in the am. Pt still trying to pull out IV. this nurse stayed in the room while pt was getting her IV AB. Original Note: Unable to do a full head to toe assessment pt is confused at the moment and will not let this nurse touch her. Bed alarm in place for safety. pt will not take her medications, will continue to monitor and if so will try to give her meds later on.
[2021-04-28] VITALS (14 sets, daily range): BP systolic 141–158; BP diastolic 49–73; PULSE 65–79; RESP 14–20; TEMP 36.4–36.9; O2SAT 92–97
[2021-04-28] MEDS: cefTRIAXone 1,000 MG in SODIUM CHLORIDE 0.9% 100 ML 200 ML IV (05:33)
[2021-04-28] MEDS: dilTIAZem CD 120 MG CAP PO (08:35)
[2021-04-28] MEDS: POTASSIUM CHLORIDE 20 MEQ TAB PO (08:35)
[2021-04-28] MEDS: FLECAINIDE 100 MG TABLET 50 MG PO ×2 (08:35→20:20)
[2021-04-28] MEDS: LOSARTAN 25 MG TABLET PO (08:37)
[2021-04-28] MEDS: ENOXAPARIN 40 MG/0.4 ML SYRINGE SUBCUT (08:37)
[2021-04-28] MEDS: SODIUM CHLORIDE 0.9% FLUSH 10 ML IV ×2 (08:38→20:19)
--- NOTE | 2021-04-28 08:59 | PM.PN.1 ---
Subjective Subjective Date Patient Seen: 04/28/21 Interval history: She is seen in her room here today to follow-up her continued weakness, hypokalemia dementia, atrial fibrillation and urinary tract infection. She continues to be minimally engaged, speaking in a very low volume voice. She is needing maximum assist to transfer per PT. At home her and her daughter per provide her with that assistance. Her potassium level dropped from 3.0 down to 2.8 despite beginning oral potassium supplementation yesterday. Exam Vital Signs (past 8 hours): - 04/28/21 01:28 04/28/21 04:20 04/28/21 05:38 Temperature 98.4 F Pulse Rate 71 Respiratory Rate 16 Blood Pressure Pulse Oximetry 95 95 95 04/28/21 07:45 04/28/21 08:52 Temperature 97.9 F Pulse Rate 79 Respiratory Rate 16 Blood Pressure 141/73 H Pulse Oximetry 95 96 Oxygen Delivery Method Room Air Oxygen Flow Rate 0 Narrative Exam Narrative: She is minimally engaged and speaks in a low volume voice. No apparent distress. 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 Social History marital status: details: to Terry number of children: 1 household members: spouse lives independently: No caregiver/support person: Yes ( Terry) housing: house other: one daughter, an RN, visits weekly Smoking Status: Former smoker alcohol intake: former Assessment & Plan Assessment & Plan narrative: This is an 85-year-old female with a past medical history of alzheimer's dementia, obstructive sleep apnea, paroxysmal AFib on Eliquis, hypertension, hyperlipidemia who was brought into the emergency room by her daughter for increased lethargy, admitted with an acute metabolic encephalopathy 1. acute cystitis with metabolic encephalopathy ruled out -Stopping Ceftriaxone on 04/28 as BC are negative at 48 H and the UC is growing only mixed mark. 2. Alzheimer's dementia ?- holding mirtazapine. 3. MICKEY, chronic ?- patient not wearing CPAP ?- monitor for signs of apnea. 4. paroxysmal atrial fibrillation ?- apixaban appears to have been discontinued as an outpatient due to fall risk, though cardiology recommended to continue. ?- recommend repeat discussion as an outpatient regarding anticoagulation depending on goals of care. 5. HTN ?- continue home meds 6. HLD ?- continue home meds 7. Hypokalemia, unclear etiology as is not on a diuretic and is not having diarrhea/vomiting - 3.5 on admission 04/25, down to 3.0 on 04/27, down to 2.8 on 04/28 - Daily Kcl PO started on 04/27. Additional K given per pharmacy on 04/28. 8. Protein Calorie Malnutrition, other. -Albumin low normal (4.0 and 3.2). Generous BMI. Disposition is return home once potassium is stabilized. Code: DNR, surrogate decision maker is the patient's spouse Time Spent With Patient Critical Care time: I spent a total of [] minutes of critical care time on this patient's care today; this time is exclusive of procedural time.
--- NOTE | 2021-04-28 09:45 | PT.IPTN ---
Current Diagnoses Urinary tract infection, site not specified (04/27/21) Physical Therapy Treatment Note M2 PT-IP Current Condition Start: 04/26/21 13:18 Freq: NEEDED Status: Active Protocol: Document 04/28/21 09:42 BC (Rec: 04/28/21 09:47 [id number]) Physical Therapy Current Condition Current Condition Evaluation Date 04/28/21 Treatment Diagnosis UTI M3 PT-IP Subjective Start: 04/26/21 13:18 Freq: NEEDED Status: Active Protocol: Document 04/28/21 09:42 BC (Rec: 04/28/21 09:47 [id number]) Subjective Physical Therapy Visit Type Type Treatment Note Visit Start Time 09:10 Visit Stop Time 09:41 Total Visit Minutes 29 Physical Therapy Visit Comments Patient Comments Pt verbalizing her concerns at times. Agreeable to transfer to commode. States I'm scared during transfers but reassured with assist. Therapy Pain Assessment Pain When Pain Assessed During Mobility Pain Present Pain Present Denied Pain M4 PT-IP Mobility and Gait Start: 04/26/21 13:18 Freq: NEEDED Status: Active Protocol: Document 04/28/21 09:42 BC (Rec: 04/28/21 09:47 [id number]) PT-Bed Mobility Assessment Rolling Level of Assist Moderate Assistance Supine to Sit Supine to Sit Moderate Assistance,Maximum Assistance Sit to Supine Sit to Supine Moderate Assistance,Maximum Assistance Scooting Scooting to Edge of Bed Moderate Assistance Scooting Up and Down in Bed Maximum Assistance PT-Transfer Assessment Sit to and From Stand Sit to and from Stand Maximum Assistance Equipment Transfer Assistive Device Front Wheeled Walker Orthotic/Prosthetic Devices or Brace: No Transfers Transfer Destination Toilet Transfer Technique Stand Step Pivot Transfer Ability Level of Assist Moderate Assistance,Maximum Assistance Comments Mobility Comments Mod to max assist to prevent posterior LOB. Visual and tactile cues for motor planning steps. Pt requires add'l time to complete transfer. Gait Assessment Gait Gait Assistance Required: Moderate Assistance,Maximum Assistance Distance (Feet) 5 Assistive Devices Assistive Device Gait Belt,Front Wheeled Walker Orthotic/Prosthetic Devices or Brace: No Gait Deviations General Gait Pattern Antalgic,Decreased Stride Length,Decreased Feet Clearance,Wide Based Gait Comments Gait Comments Gait pattern limited by likely poor motor planning. Given consistent cues of visual and tactile nature she is able to take steps more consistent with a standard gait pattern. Without cues she is mobilizing with a shuffling gait. Activity tolerance PT-Balance Assessment Sitting Balance and Reactions Static Sitting Balance Ability Fair Dynamic Sitting Balance Ability Poor Standing Balance and Reactions Static Standing Balance Ability Poor Dynamic Standing Balance Ability Poor Comments Other Balance Tests/Deviations/Treatment Retropulsive in sitting and : standing. Needs tactile and verbal cues. M5 PT-IP Objective Assessments Start: 04/26/21 13:18 Freq: NEEDED Status: Active Protocol: Document 04/26/21 10:05 AB (Rec: 04/26/21 13:34 AB [id number]) Orientation Orientation/Cognition Level of Alertness Confusional State Safety Awareness Decreased Safety Awareness Memory Description Short Term Impaired,Assisted Impaired Gross Range of Motion Lower Extremity ROM Assessment Within Functional Limits Strength Lower Extremity Strength Hip 4-/5 Knee 3+/5 Muscle Tone Muscle Tone WNL Yes M6 PT-IP Treatment Start: 04/26/21 13:18 Freq: NEEDED Status: Active Protocol: Document 04/28/21 09:42 BC (Rec: 04/28/21 10:28 [id number]) Physical Therapy Treatment Other Treatments Other Treatment Performed Seated balance EOB without back support. Mod to max assist to maintain balance during functional UE tasks of brushing hair. M7 PT-IP Assessment and Plan Start: 04/26/21 13:18 Freq: NEEDED Status: Active Protocol: Document 04/28/21 09:42 BC (Rec: 04/28/21 10:28 [id number]) PT Summary Assessment and Plan Potential Rehabilitation Potential Fair Status of Condition at Evaluation Stable Summary Progress Towards Goals Slow Progress - Other Assessment Summary Slow progression due to cognitive deficits. Goals Bed Mobility Goal Minimal Assistance Transfer Goal Minimal Assistance,Front Wheeled Walker Gait Goal Minimal Assistance,Front Wheel Walker Gait Distance 50 Other Goals improve bed mobility, transfers using FWW, ambulation using FWW 100 ft SBA Days to Meet Goals 10 Frequency of Treatment Frequency Of Treatment Once a Day Treatment Plan Physical Therapy Treatment Plan Bed Mobility Training,Transfer Training,Gait Training, Therapeutic Exercise,Balance Retraining,Discharge Planning, Hot or Cold Pack,Neuromuscular Re-ed,Coordination Retraining ,Manual Therapy Recommendations To Nursing Amount of Assist Needed 2 Person Assist Discharge Recommendations PT Discharge Recommendations SNF Rehab Other Discharge Recommendations Pt will require mod to max assist of family members. And benefit from use of walker/ wheelchair if family elects to bring her home Transportation Needs at Discharge Wheelchair/Cabulance
[2021-04-28 09:46] LABS: BUN Creatinine Ratio 19.6 (6-22); Blood Urea Nitrogen 9 mg/dL (7-17); Calcium 8.9 mg/dL (8.4-10.2); Carbon Dioxide 22 mmol/L (22-32); Chloride 106 mmol/L (98-107); Estimated Glomerular Filt Rate > 60.0 mL/min (>60); Glucose 116 mg/dL (80-110); HEMOLYSIS < 15 (0-50); Potassium 2.8 mmol/L (3.4-5.1); Sodium 140 mmol/L (137-145)
[2021-04-28] MEDS: POTASSIUM CHLORIDE 20 MEQ TAB 40 MEQ PO ×2 (12:28→17:57)
[2021-04-28 19:35] LABS: Magnesium 1.6 mg/dL (1.6-2.3)
[2021-04-28] MEDS: LATANOPROST 0.005% OPHTH 2.5 ML 1 DROPS EYE-BOTH (20:19)
--- NOTE | 2021-04-28 21:24 | PC.NURSE ---
Patient is alert and can state her first name but does not respond to other orientation questions. Does answer yes/no questions and follows some directions. Breath sounds CTA with RA sat of 97%. HRR. BP elevated at 148/65. Denied nausea when asked. BT present; has been incontinent of stool. Abdomen is soft but appears distended and noted to have no UOP documented since 552 so bladder scan done showing 457cc in bladder. Leonardo KAMARA, informed and order obtained for in/out cath which was done with clear wyatt urine returned. Is needing assistance to reposition q2h although will assist. Denied pain. Fall risk score is high and bed alarm is activated.
[2021-04-29] VITALS (14 sets, daily range): BP systolic 142–153; BP diastolic 60–68; PULSE 71–84; RESP 14–18; TEMP 36.3–37.4; O2SAT 93–97
[2021-04-29 01:20] LABS: BUN Creatinine Ratio 21.6 (6-22); Blood Urea Nitrogen 11 mg/dL (7-17); Calcium 9.4 mg/dL (8.4-10.2); Carbon Dioxide 24 mmol/L (22-32); Chloride 110 mmol/L (98-107); Estimated Glomerular Filt Rate > 60.0 mL/min (>60); Glucose 124 mg/dL (80-110); HEMOLYSIS < 15 (0-50); Magnesium 1.5 mg/dL (1.6-2.3); Potassium 4.2 mmol/L (3.4-5.1); Sodium 138 mmol/L (137-145)
[2021-04-29 07:42] LABS: BUN Creatinine Ratio 19.1 (6-22); Blood Urea Nitrogen 9 mg/dL (7-17); Calcium 9.1 mg/dL (8.4-10.2); Carbon Dioxide 25 mmol/L (22-32); Chloride 109 mmol/L (98-107); Estimated Glomerular Filt Rate > 60.0 mL/min (>60); Glucose 118 mg/dL (80-110); HEMOLYSIS < 15 (0-50); Potassium 3.8 mmol/L (3.4-5.1); Sodium 137 mmol/L (137-145)
[2021-04-29] MEDS: ENOXAPARIN 40 MG/0.4 ML SYRINGE SUBCUT (08:59)
[2021-04-29] MEDS: POTASSIUM CHLORIDE 20 MEQ TAB PO (08:59)
[2021-04-29] MEDS: dilTIAZem CD 120 MG CAP PO (08:59)
[2021-04-29] MEDS: LOSARTAN 25 MG TABLET PO (09:00)
[2021-04-29] MEDS: FLECAINIDE 100 MG TABLET 50 MG PO ×2 (09:00→20:27)
[2021-04-29] MEDS: SODIUM CHLORIDE 0.9% FLUSH 10 ML IV ×2 (09:01→20:28)
--- NOTE | 2021-04-29 09:32 | OT.IP.TRT ---
Current Diagnoses Urinary tract infection, site not specified (04/27/21) Occupational Therapy Treatment Note M2 OT-IP Current Condition Start: 04/26/21 15:26 Freq: Status: Active Protocol: Document 04/26/21 15:27 [facility] (Rec: 04/26/21 15:49 [facility] [id number]) Occupational Therapy Current Condition Current Condition Evaluation Date 04/26/21 Treatment Diagnosis Altered mental status and UTI Diagnosis Onset Date 04/26/21 M3 OT- IP Subjective and Pain Start: 04/26/21 15:26 Freq: Status: Active Protocol: Document 04/29/21 09:34 [facility] (Rec: 04/29/21 09:54 [facility] [id number]) OT- Subjective Occupational Therapy Visit Type Type Progress Note Visit Start Time 08:59 Visit Stop Time 09:32 Total Visit Minutes 33 Notes Nursing present through some of the transfers OT Pain Assessment Pain When Pain Assessed During Mobility Pain Present Pain Present Unable to Respond FLACC Pain Scale Face No particular expression Legs Normal position; relaxed Activity Quiet, moves easily Cry No cry (awake or asleep) Consolability Content, relaxed FLACC Total 0 M4 OT- IP ADL's Start: 04/26/21 15:26 Freq: Status: Active Protocol: Document 04/29/21 09:34 [facility] (Rec: 04/29/21 09:54 [facility] [id number]) OT [id number]-Rimytkj Comments OT Self-Feeding Comments Pt already ate breakfast OT ADL-Grooming Comments OT Grooming Comments Not performed OT ADL-Oral Care Comments Oral Care Comments Not performed OT ADL-Dressing General Eval Lower Body Dressing Ability Maximum Assistance Areas Needing Assistance Underpants/Brief Comments OT Dressing Comments donning of pull on brief needed max a OT ADL-Toileting General Evaluation Toileting Ability Total Assistance Areas Needing Assistance Manage Clothing,Perform Perineal Hygiene Comments OT Toileting Comments Pt urinated and had BM seated on BSC. Total assist for clothing management and total assist for pericare. OT ADL-Bathing Comments OT Bathing Comments Not performed M5 OT- IP IADL's Start: 04/26/21 15:26 Freq: Status: Active Protocol: Document 04/26/21 15:27 [facility] (Rec: 04/26/21 15:49 [facility] [id number]) OT-Instrumental Activities of Daily Living Home Safety Awareness Awareness of Need for Assistance at Home Decreased Awareness Ability to Problem Solve Emergency Unable to Problem Solve Situations Medication Management Medication Management Caregiver Administers Money Management Money Management Caregiver Provides Assistance Meal Preparation Meal Preparation Caregiver Provides Assist Flux Mixer Flux Mixer Caregiver Provides Assist Driving Driving Caregiver Provides Assist M6 OT- IP Functional Cognition Start: 04/26/21 15:26 Freq: Status: Active Protocol: Document 04/29/21 09:34 [facility] (Rec: 04/29/21 09:54 [facility] [id number]) Cognitive Factors Limiting Selfcare Function Cognitive Ability Level of Alertness Alert,Confusional State Patient Orientation Name Attention Span Ability Unable to Focus,Unable to Sustain Attention Ability to Follow Commands Able to Follow One Step Commands with Increased Time, Able to Follow One Step Commands with Repetition Cognitive Comments Cognitive Assessment Comments Pt needs ~10 seconds to process most commands and needs repetition of the command to complete OT- Vision and Hearing OT- Hearing Assessment OT- Hearing Assessment Hearing Impaired OT- Vision Assessment Vision Assessment Comments Pt is HOH. Granado7 OT- IP Mobility and Balance Start: 04/26/21 15:26 Freq: Status: Active Protocol: Document 04/29/21 09:34 [facility] (Rec: 04/29/21 09:54 [facility] [id number]) OT- Bed Mobility Assessment Supine to Sit Supine to Sit Assist Minimal Assistance,Moderate Assistance,1 Person Assistance ,Head of Bed Elevated Scooting Scooting to Edge of Bed Minimal Assistance,Moderate Assistance,1 Person Assistance ,Head of Bed Elevated OT-Transfer Assessment Sit to and From Stand Sit to and from Stand Moderate Assistance,Maximum Assistance,1 Person Assistance Transfers Transfer Ability Moderate Assistance,Maximum Assistance,1 Person Assistance Technique Transfer Destination Bed,Bedside Commode,Chair Transfer Technique Stand Step Pivot Devices Transfer Assistive Devices Gait Belt,Front Wheeled Walker Comments Mobility Comments Pt was able to perform sup to sit from bed with min physical assist and max vc. Pt needed vc to put her feet on the ground ~6 times before she completed the task, each time she would inch closer to getting her feet on the ground . Pt also needed max vc for all other tasks with extra time for comprehension. Pt transfered from bed to bedside commode then to chair. Physical assist through out the session min to mod assist but increased to mod to max d/ t max vc needed and movement of the walker/placement of hands for transfers. OT- Gait Assessment Comments Gait Ability Comments Pt did not perform OT- Balance Assessment Sitting Balance and Reactions Static Sitting Balance Ability Fair M8 OT- IP Objective Assessments Start: 04/26/21 15:26 Freq: Status: Active Protocol: Document 04/26/21 15:27 [facility] (Rec: 04/26/21 15:49 [facility] [id number]) OT Gross Range of Motion Upper Extremity Range of Motion Assessment Bilaterally Impaired OT Strength Comments Strength Comments Not able to fully assess due to pt's difficulty to follow commands OT-Muscle Tone Assessment Muscle Tone WNL Yes M9 OT- IP Assessment and Plan Start: 04/26/21 15:26 Freq: Status: Active Protocol: Document 04/29/21 09:34 [facility] (Rec: 04/29/21 09:54 [facility] [id number]) OT Summary Assessment and Plan Potential Rehabilitation Potential Good Analytic Complexity at Evaluation Moderate Summary OT Impairments Strength,Balance,Functional Cognition,Functional Mobility, Grooming,Dressing,Toileting, Bathing,Toilet Transfers, Shower Transfers,Activity Tolerance Progress Towards Goals Slow Progress due to Medical Issues,Slow Progress due to Activity Tolerance,Slow Progress due to Cognition Assessment Summary Pt has improved to needing min to mod physical assist and max vc for all mobility at this time. Pt needs extra time for all comprehension of commands and repetition for her to compete tasks. Pt will benefit from continued therapy services to address declines. Recommend assessment of pt's abilities with present for best knowledge on what her ability would be at home but pt may benefit from memory care unit given her decline in cognition and physical ability at this time. Goals Grooming Goal Standby Assistance Dressing Goal Moderate Assistance Toileting Goal Moderate Assistance Bathing Goal Minimal Assistance Toilet Transfer Goal Standby Assistance Shower Transfer Goal Standby Assistance Days to Meet Goals 15 Frequency of Treatment Frequency Of Treatment Once a Day Treatment Plan OT Treatment Plan ADL Training,Functional Cognition Training,Functional Mobility,Patient/Family Education,Discharge Planning Other Treatment Recommendations and [place] [facility] [place] [facility] [place] Treatment Focus Discharge Recommendations OT Discharge Recommendations Home with 22/09 Assist Available,Home Health,SNF Rehab,Home vs SNF Transportation Needs at Discharge Private Vehicle,Wheelchair/ Cabulance
--- NOTE | 2021-04-29 11:19 | CM.DPC ---
Addendum entered by Mirian Mireles R.N. 04/29/21 14:44: Met with patient and told him about [facility], spoke to Bernadette, stated, they can do respite, have availabilties. spouse wants to stay with [facility] since he has already made deposit. He is going to call them today as far as status of wait. Modesta at [facility] called back and indicated, she may come and see patient, and still may start her insurance auth. She was asking for updated P.T. notes. Patient refused P.T, but did work with O.T. prior. Faxed over today's O.T. notes, and P.T. notes from yesterday. Included some nursing notes. Let her know about terminal computer operator plan, that spouse is very much involved, and looking into memory care. Discussed having spouse take patient home. He indicated that his daughter is coming up from [place], and is willing to stay through Thursday. Other daughter, Ilsa, who is currently in [place], will be back later this week. Addendum entered by Mirian Mireles R.N. 04/29/21 12:55: Left Bernadette at [facility] a message to inquire if they have memory care rooms, or respite, and the cost. Addendum entered by Mirian Mireles R.N. 04/29/21 12:31: Spoke to patient's over the phone. Discussed care needs, and goals. was hoping that she could go home. Let him know that she is two person assist at this time. Let him know that this vacation planner is attempting [facility]. Asked him if he has considered getting caregivers in the home. He indicated, he has not, he was hoping that after this UTI, she would improved. Confirmed that he is working on getting patient into [facility], gave a deposit, but will contact them today. Let him know that [facility] also has a memory care facility, may be able to go there for rehab. stated, he is familiar with [facility] as well, may be a good option for her. Left a message with admissions at [facility]. May also call [facility] in [place] to see if they have any rooms available, and their current rate. Original Note: DCP Cont: Discussed patient during team rounds. Patient is a moderate assist at this time. Patient came from home, has been primary caregiver. Did hear back from Jeannette at [facility], no beds currently available. Lani at [facility] has concerns regarding patient's dementia, and level of assist needed. [facility], she indicated, they can still get an auth, will look at her again today, but not sure. Spoke to Maldonado in admissions at [facility], stated, they are contracted with patient's insurance, and can review. She is in for [place] part of this week. Called Modesta at [facility] and left a message regarding patient, and faxed referral. Will attempt to meet with patient's spouse to discuss goals. According to CORE MAKER HELPER note, patient has application over at [facility] [place]. P: DCP to continue to follow. Will await call back from nursing facilities, and will attempt to meet with patient's spouse today. Mirian Mireles, RN/Clinical Courier
--- NOTE | 2021-04-29 12:13 | PT-IP ANOTE ---
Pt unable to follow commands this PM w/ verbal and tactile cues and resisting when trying to facilitate movement. No charge.
[2021-04-29] MEDS: MAGNESIUM CHLORIDE 64 MG TABLET 128 MG PO (12:16)
--- NOTE | 2021-04-29 14:20 | P.PN_ITS ---
Subjective Subjective Date Patient Seen: 04/29/21 Interval history: Patient is an 85-year-old female admitted to the hospital for confusion, weakness, hypokalemia, dementia, atrial fibrillation and urinary tract infection. Patient remains markedly confused today. She answers yes or no q uestions. She requires maximum assistance to transfer. Her hypokalemia has resolved. Exam Vital Signs (past 8 hours): - 04/29/21 07:25 04/29/21 07:38 04/29/21 09:00 Pulse Rate 81 Blood Pressure 144/61 H Pulse Oximetry 94 94 04/29/21 11:51 04/29/21 13:11 Pulse Rate Blood Pressure Pulse Oximetry 94 95 Oxygen Delivery Method Room Air Oxygen Flow Rate 0 Narrative Exam Narrative: Confused elderly female Resp Other: Lungs clear to auscultation Cardio Other: Cardiac exam: Regular rate and rhythm normal S1-S2 GI Other: Abdomen: Soft nontender nondistended Extrem Other: Extremities: No edema Objective Labs Result Diagrams: 04/25/21 22:35 04/29/21 07:05 Labs: Laboratory Results - last 24 hr 04/28/21 04/29/21 04/29/21 05:13 01:00 07:05 Sodium 138 137 Potassium 4.2 D 3.8 Chloride 110 H 109 H Carbon Dioxide 24 25 BUN 11 9 Creatinine 0.51 L 0.47 L Estimated GFR > 60.0 > 60.0 BUN/Creatinine Ratio 21.6 19.1 Glucose 124 H 118 H Calcium 9.4 9.1 Magnesium 1.6 1.5 L [facility] Medical History Accident due to mechanical fall without injury Basal cell carcinoma of skin (~2010) Chickenpox Chronic anticoagulation Dementia (~2010) Glaucoma Hearing loss Hyperlipidemia 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 Social History marital status: details: to Terry number of children: 1 household members: spouse lives independently: No caregiver/support person: Yes ( Terry) housing: house other: one daughter, an RN, visits weekly Smoking Status: Former smoker alcohol intake: former Assessment & Plan Assessment & Plan narrative: This is an 85-year-old female with a past medical history of alzheimer's d ementia, obstructive sleep apnea, paroxysmal AFib on Eliquis, hypertension, hyperlipidemia who was brought into the emergency room by her daughter for increased lethargy, admitted with an acute metabolic encephalopathy 1. acute cystitis with metabolic encephalopathy ruled out -Stopping Ceftriaxone on 04/28 as BC are negative at 48 H and the UC is growing only mixed mark. 2. Alzheimer's dementia ?- holding mirtazapine. 3. MICKEY, chronic ?- patient not wearing CPAP ?- monitor for signs of apnea. 4. paroxysmal atrial fibrillation ?- apixaban appears to have been discontinued as an outpatient due to fall risk, though cardiology recommended to continue. ?- recommend repeat discussion as an outpatient regarding anticoagulation depending on goals of care. 5. HTN ?- continue home meds 6. HLD ?- continue home meds 7. Hypokalemia, unclear etiology as is not on a diuretic and is not having maurice rrhea/vomiting - 3.5 on admission 04/25, down to 3.0 on 04/27, down to 2.8 on 04/28 - Daily Kcl PO started on 04/27.? Additional K given per pharmacy on 04/28. -potassium 3.8 today, magnesium 1.5, will start Mag oxide 8. Protein Calorie Malnutrition, other. -Albumin low normal (4.0 and 3.2).? Generous BMI.? 9. Disposition, given patient's severe Alzheimer's dementia she is now a 2 person maximum assist. Patient may require distant no help at home versus placement. has her currently on a wait list at a memory care unit. Will continue to have physical therapy work with her determine whether she can go home with additional help tomorrow. Her daughter will be here tomorrow and we will assess at that time. Disposition is return home once potassium is stabilized. Time Spent With Patient Critical Care time: I spent a total of [] minutes of critical care time on this patient's care today; this time is exclusive of procedural time.
--- NOTE | 2021-04-29 18:13 | PC.NURSE ---
pt was 1:1 feed during lunch and dinner. She worked with PT and she was min assist with FWW, pt need lots of queuing getting up. She sat in the commode then to her chair. however, she seemed more tired in the afternoon. she refused to get up with PT. SALES REPRESENTATIVE [employer] INSURANCE and I tried to get her back to bed, but she was too weak to stand up. she was transferred back to bed via marjorie lift.
[2021-04-29] MEDS: LATANOPROST 0.005% OPHTH 2.5 ML 1 DROPS EYE-BOTH (20:28)
[2021-04-30] VITALS (15 sets, daily range): BP systolic 137–158; BP diastolic 61–72; PULSE 78–87; RESP 15–18; TEMP 36.2–37.6; O2SAT 94–99
[2021-04-30 05:27] LABS: Magnesium 1.6 mg/dL (1.6-2.3)
[2021-04-30] MEDS: LOSARTAN 25 MG TABLET PO (07:52)
[2021-04-30] MEDS: FLECAINIDE 100 MG TABLET 50 MG PO ×2 (07:52→22:27)
[2021-04-30] MEDS: POTASSIUM CHLORIDE 20 MEQ TAB PO (07:52)
[2021-04-30] MEDS: dilTIAZem CD 120 MG CAP PO (07:52)
[2021-04-30] MEDS: ENOXAPARIN 40 MG/0.4 ML SYRINGE SUBCUT (07:53)
[2021-04-30] MEDS: SODIUM CHLORIDE 0.9% FLUSH 10 ML IV ×2 (08:05→22:28)
--- NOTE | 2021-04-30 09:14 | CM.DPC ---
Addendum entered by Mirian Mireles R.N. 04/30/21 15:47: Spoke to Phoebe in admissions at [facility]. She has not yet gotten auth from her insurance, hopes she will tomorrow. Went ahead and sent PASSR per Phoebe's request. Will follow up tomorrow and get vaccination information. Have BLS form filled out, Dr. Saavedra working on POLST. Addendum entered by Mirian Mireles R.N. 04/30/21 15:34: Spoke to Remberto at [facility]. Let her know that patient will need to go BLS due to her weakness, unable to sit up in her chair. Also, wanted to follow up with insurance auth. She indicated that she will have Phoebe call back. Addendum entered by Mirian Mireles R.N. 04/30/21 14:39: This senior buyer planner accidentally charted on incorrect patient on caption below. Gave Dr. Saavedra a POLST form to sign, so patient will be able to take with her on BLS transport. Will call Phoebe back today to see if she has update on insurance auth. Addendum entered by Mirian Mireles R.N. 04/30/21 12:59: Patient was sitting up in chair, eating. He is hard of hearing. Asked him if he lives with his daughter, he nodded, but unable to give history. Have a call out to daughter for additional information. Addendum entered by Mirian Mireles R.N. 04/30/21 12:54: Was able to update patient's , Terry, about [facility]. Discussed BLS transport, for patient may not be able to tolerate sitting up in chair for length of time. is ok with BLS, is aware that most likely will not be able to be covered by insurance. Asked spouse if he can bring patient's vaccination card, he stated, he has that at home and can bring. Addendum entered by Mirian Mireles R.N. 04/30/21 11:51: Spoke to Estefania at [facility]. Patient is 12 on their list, which could be a couple of months, and they do not change priorities for admissions if patient is on hospice. Addendum entered by Mirian Mireles R.N. 04/30/21 10:44: Spoke to Phoebe at [facility]. She indicated, they should be able to accept patient, but will need to get the insurance auth. She will work on this today. Will updated spouse, as soon as he comes in. Did originally let him know that [facility] was one of the facilities that was attempted. Addendum entered by Mirian Mireles R.N. 04/30/21 10:37: Called [facility], and spoke to weekend receptionist. She will have their director, Estefania, call back. Was inquiring if their facility can take patient sooner if she is on hospice. Also, wanted to inquire as to how long the waiting list is. Will await call back. Original Note: DCP Cont: Called [facility] and left Modesta in admissions a message to inquire upon if she plans on going through with insurance auth and seeing patient here at the hospital. Will await call back. Called [facility], spoke to Phoebe in admissions. She indicated, she did not receive the nursing notes from yesterday. Went ahead and sent notes from yesterday and day before, and O.T. note from yesterday. Phoebe indicated, she should know today, will run it by their skilled nursing facilities professional, but they do not have any overcoil stepper beds. It is noted that patient was a hoier lift yesterday. P: DCP to continue to follow. [facility] and [facility] are currently reviewing. Mirian Mireles RN/Caustic Liquor Maker
[2021-04-30] MEDS: MAGNESIUM CHLORIDE 64 MG TABLET 128 MG PO (09:34)
--- NOTE | 2021-04-30 10:35 | OT.IP.TRT ---
Current Diagnoses Urinary tract infection, site not specified (04/27/21) Occupational Therapy Treatment Note M2 OT-IP Current Condition Start: 04/26/21 15:26 Freq: Status: Active Protocol: Document 04/26/21 15:27 [facility] (Rec: 04/26/21 15:49 [facility] [id number]) Occupational Therapy Current Condition Current Condition Evaluation Date 04/26/21 Treatment Diagnosis Altered mental status and UTI Diagnosis Onset Date 04/26/21 M3 OT- IP Subjective and Pain Start: 04/26/21 15:26 Freq: Status: Active Protocol: Document 04/30/21 11:06 [facility] (Rec: 04/30/21 11:16 [facility] [id number]) OT- Subjective Occupational Therapy Visit Type Type Treatment Note Visit Start Time 09:35 Visit Stop Time 10:04 Total Visit Minutes 29 Occupational Therapy Visit Comments Patient Comments After encouragement, pt agreed to get up to use the BSC. OT Pain Assessment Pain When Pain Assessed During Mobility Pain Present Pain Present Unable to Respond M4 OT- IP ADL's Start: 04/26/21 15:26 Freq: Status: Active Protocol: Document 04/30/21 11:06 [facility] (Rec: 04/30/21 11:16 [facility] [id number]) OT ADL-Dressing General Eval Lower Body Dressing Ability Total Assistance Areas Needing Assistance Underpants/Brief,Socks Comments OT Dressing Comments Total assist for socks and brief. OT ADL-Toileting General Evaluation Toileting Ability Total Assistance Areas Needing Assistance Manage Clothing M5 OT- IP IADL's Start: 04/26/21 15:26 Freq: Status: Active Protocol: Document 04/26/21 15:27 [facility] (Rec: 04/26/21 15:49 [facility] [id number]) OT-Instrumental Activities of Daily Living Home Safety Awareness Awareness of Need for Assistance at Home Decreased Awareness Ability to Problem Solve Emergency Unable to Problem Solve Situations Medication Management Medication Management Caregiver Administers Money Management Money Management Caregiver Provides Assistance Meal Preparation Meal Preparation Caregiver Provides Assist Furniture Shampooer Furniture Shampooer Caregiver Provides Assist Driving Driving Caregiver Provides Assist M6 OT- IP Functional Cognition Start: 04/26/21 15:26 Freq: Status: Active Protocol: Document 04/30/21 11:06 [facility] (Rec: 04/30/21 11:16 [facility] [id number]) Cognitive Factors Limiting Selfcare Function Cognitive Ability Level of Alertness Alert,Confusional State Patient Orientation Name Attention Span Ability Unable to Focus,Unable to Sustain Attention Ability to Follow Commands Able to Follow One Step Commands with Increased Time, Able to Follow One Step Commands with Repetition Cognitive Comments Cognitive Assessment Comments Pt having difficulty to process commands even after increase time Pt states , I do not understand repetitively when showing her the BSC. M7 OT- IP Mobility and Balance Start: 04/26/21 15:26 Freq: Status: Active Protocol: Document 04/30/21 11:06 [facility] (Rec: 04/30/21 11:16 [facility] [id number]) OT- Bed Mobility Assessment Supine to Sit Supine to Sit Assist Maximum Assistance Scooting Scooting to Edge of Bed Moderate Assistance,1 Person Assistance OT-Transfer Assessment Sit to and From Stand Sit to and from Stand Maximum Assistance,2 Person Assistance Transfers Transfer Ability Moderate Assistance,Maximum Assistance,2 Person Assistance Technique Transfer Destination Bed,Bedside Commode Transfer Technique Squat Pivot Devices Transfer Assistive Devices Gait Belt,Front Wheeled Walker Comments Mobility Comments Pt not able to come to stand today as having posterior lean with FWW. Able to do squat pivot MAX AX2 to the BSC and MODA X 2 back to the bed. OT- Balance Assessment Sitting Balance and Reactions Static Sitting Balance Ability Fair Comments Other Balance Tests/Deviations/Treatment Pt able to sit at the edge of : the bed with initially MODA x1 and then SBA . M8 OT- IP Objective Assessments Start: 04/26/21 15:26 Freq: Status: Active Protocol: Document 04/26/21 15:27 [facility] (Rec: 04/26/21 15:49 [facility] [id number]) OT Gross Range of Motion Upper Extremity Range of Motion Assessment Bilaterally Impaired OT Strength Comments Strength Comments Not able to fully assess due to pt's difficulty to follow commands OT-Muscle Tone Assessment Muscle Tone WNL Yes M9 OT- IP Assessment and Plan Start: 04/26/21 15:26 Freq: Status: Active Protocol: Document 04/30/21 11:06 [facility] (Rec: 04/30/21 11:16 [facility] [id number]) OT Summary Assessment and Plan Potential Rehabilitation Potential Fair Analytic Complexity at Evaluation Moderate Summary OT Impairments Strength,Balance,Functional Cognition,Functional Mobility, Grooming,Dressing,Toileting, Bathing,Toilet Transfers, Shower Transfers,Activity Tolerance Progress Towards Goals Slow Progress due to Medical Issues,Slow Progress due to Activity Tolerance,Slow Progress due to Cognition Assessment Summary Pt still having difficulty to follow commands and process and needing extensive two person assist for transfers at this time. Pt will benefit from continued OT services to work on ADl needs and caregiver training with her if appropriate. Otherwise pt will benefit from memory care/LTC/SNF. Goals Grooming Goal Standby Assistance Dressing Goal Moderate Assistance Toileting Goal Moderate Assistance Bathing Goal Minimal Assistance Toilet Transfer Goal Standby Assistance Shower Transfer Goal Standby Assistance Days to Meet Goals 20 Frequency of Treatment Frequency Of Treatment Once a Day Treatment Plan OT Treatment Plan ADL Training,Functional Cognition Training,Functional Mobility,Patient/Family Education,Discharge Planning Discharge Recommendations OT Discharge Recommendations Home with 22/09 Assist Available,Home Health,SNF Rehab,LTAC,Home vs SNF Transportation Needs at Discharge Wheelchair/Cabulance
--- NOTE | 2021-04-30 11:22 | PT-IP ANOTE ---
Attempted to see pt at 11:22, pt unable to follow or respond to mobility directions.
--- NOTE | 2021-04-30 12:08 | OT.IPNOTE ---
Able to notify pt's nurse that her left knee is a little swollen and that she was complaining on some pain medially when MANGLE OPERATOR GARMENTS able to palpate her.
--- NOTE | 2021-04-30 15:28 | P.PN_ITS ---
Subjective Subjective Date Patient Seen: 04/30/21 Interval history: 85-year-old female admitted to the hospital for diarrhea dehydration and increasing to confusion. Patient with known dementia. She appears to be markedly confused. Initially there was concern that she may have urinary tract infection however her urine culture grew mixed mark. The patient answers questions yes or no. She is a maximum assist. Plans are underway for transfer to assisted at discharge Exam Vital Signs (past 8 hours): - 04/30/21 07:41 04/30/21 07:52 04/30/21 07:54 Temperature 98.9 F Pulse Rate 84 84 Respiratory Rate 16 Blood Pressure 158/72 H 158/72 H Pulse Oximetry 95 94 04/30/21 09:57 04/30/21 11:00 04/30/21 13:49 Temperature 97.5 F L Pulse Rate 78 Respiratory Rate 16 Blood Pressure 137/61 Pulse Oximetry 94 96 95 04/30/21 14:05 Temperature Pulse Rate Respiratory Rate Blood Pressure Pulse Oximetry 95 Oxygen Delivery Method Room Air Oxygen Flow Rate 0 Narrative Exam Narrative: Pleasant calm but confused elderly female lying in bed Resp Other: Lungs clear to auscultation Cardio Other: Cardiac exam: Irregularly irregular normal S1-S2 GI Other: Abdomen: Soft nontender nondistended Extrem Other: Extremities: No edema Objective Labs Result Diagrams: 04/25/21 22:35 04/29/21 07:05 Labs: Laboratory Results - last 24 hr 04/30/21 04:47 Magnesium 1.6 PFSH Medical History Accident due to mechanical fall without injury Basal cell carcinoma of skin (~2010) Chickenpox Chronic anticoagulation Dementia (~2010) Glaucoma Hearing loss Hyperlipidemia 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 Social History marital status: details: to Terry number of children: 1 household members: spouse lives independently: No caregiver/support person: Yes ( Terry) housing: house other: one daughter, an RN, visits weekly Smoking Status: Former smoker alcohol intake: former Assessment & Plan Assessment & Plan narrative: This is an 85-year-old female with a past medical history of alzheimer's dementi a, obstructive sleep apnea, paroxysmal AFib on Eliquis, hypertension, hyperlipidemia who was brought into the emergency room by her daughter for increased lethargy, admitted with an acute metabolic encephalopathy 1. acute cystitis with metabolic encephalopathy ruled out -Stopping Ceftriaxone on 04/28 as BC are negative at 48 H and the UC is growing only mixed mark. 2. Alzheimer's dementia ?- holding mirtazapine. 3. MICKEY, chronic ?- patient not wearing CPAP ?- monitor for signs of apnea. 4. paroxysmal atrial fibrillation ?- apixaban appears to have been discontinued as an outpatient due to fall risk, though cardiology recommended to continue. ?- recommend repeat discussion as an outpatient regarding anticoagulation depending on goals of care. -given severity of dementia agree with holding apixaban 5. HTN ?- continue home meds 6. HLD ?- continue home meds 7. Hypokalemia, unclear etiology as is not on a diuretic and is not having diarrhea/vomiting - 3.5 on admission 04/25, down to 3.0 on 04/27, down to 2.8 on 04/28 - Daily Kcl PO started on 04/27.? Additional K given per pharmacy on 04/28. -potassium 3.8 today, magnesium 1.5, will start Mag oxide 8. Protein Calorie Malnutrition, other. -Albumin low normal (4.0 and 3.2).? Generous BMI.? 9. Disposition, given patient's severe Alzheimer's dementia she is now a 2 person maximum assist.? Patient may require distant no help at home versus placement.? has her currently on a wait list at a memory care unit. Will continue to have physical therapy work with her determine whether she can go home with additional help tomorrow.? Her daughter will be here tomorrow and we will assess at that time. Plans underway for placement at assisted within the next 24 hours Time Spent With Patient Critical Care time: I spent a total of [] minutes of critical care time on this patient's care today; this time is exclusive of procedural time.
--- NOTE | 2021-04-30 15:43 | PT-IP ANOTE ---
checked on pt and pt is asleep. tried to wake pt up for a few minutes but remains lethargic. talked with nurse and NAC and stated that pt has been sleepy today but has sleep well last night. Pt unable to stay awake or keep eyes open despite efforts to wake pt up. will f/u.
[2021-04-30] MEDS: LATANOPROST 0.005% OPHTH 2.5 ML 1 DROPS EYE-BOTH (22:27)
[2021-05-01 03:00] VITALS: O2SAT 97
--- NOTE | 2021-05-01 03:42 | PC.NURSE ---
alert and oriented x 1. withdrawn. 2pa ADL assistance, needs help w/ changing of attends, lucy-care and repositioning. incont of b/b. does not follow simple commands. apprehensive during turning/cares, and grabs at anything w/in reach. needs extra verbal cues and time to explain tasks. accepted med crushed w/ small bite of applesauce. HOB up for comfort. Bed alarm is on, call light w/in reach. frequent safety and room checks thru the NOC.
[2021-05-01 07:00] VITALS: BP 175/73; PULSE 82; RESP 16; TEMP 36.9; O2SAT 92
[2021-05-01] MEDS: ENOXAPARIN 40 MG/0.4 ML SYRINGE SUBCUT (08:41)
[2021-05-01 08:42] VITALS: BP 175/72; PULSE 82
[2021-05-01] MEDS: MAGNESIUM OXIDE 400 MG TABLET PO (08:42)
[2021-05-01] MEDS: LOSARTAN 25 MG TABLET PO (08:42)
[2021-05-01] MEDS: SODIUM CHLORIDE 0.9% FLUSH 10 ML IV (08:43)
[2021-05-01] MEDS: POTASSIUM CHLORIDE 20 MEQ TAB PO (08:43)
[2021-05-01] MEDS: FLECAINIDE 100 MG TABLET 50 MG PO (08:43)
--- NOTE | 2021-05-01 08:57 | CM.DPC ---
Addendum entered by Mirian Mireles R.N. 05/01/21 10:34: During team rounds, Phoebe from [facility] in admissions stated that she did get authorization, the authorizaton that this senior materials planner was attempting to obtain was cancelled, since this one is currently active. Auth number is: [id number]. Updated Dr. Saavedra, she will work on getting POLST signed. Asking Abby to obtain vaccine information, for did not yet bring in. Will get rapid COVID. Called [facility] transport, scheduled for car pick up driver at 1400. , Terry is aware, appreciative. He will be here before then to sign POLST. As soon as orders are received, will fax to [place]. Addendum entered by Mirian Mireles R.N. 05/01/21 09:23: Was able to reach a member at [facility]. Gave all information, ICD 10 codes, NPI, and they started over. She stated that they needed clinicals faxed. Let them know that this was supposed to have been done yesterday. She gave pending auth number of [id number]. She indicated that it still needs to be reviewed. Sent over H&P, and P.T. notes when patient was participating. Called [facility] and spoke to Amelia in admissions. She indicated that clinicals were faxed yesterday. Confirmed fax number off [phone]. Gave her the temporary authorization number. She is also faxing over clinicals. Will discuss other option of private pay with , in case her insurance does not authorize. Original Note: DCP Cont: Called [facility]. Was given a number to contact their UR department to get an auth. Their number is: [phone]. Spoke to Debbi, rep. Was able to give her ICD10 codes, and that patient was to be going to [place]. She asked for Dr. Saavedra's NPI number, and was not able to provide. Let her know that this senior materials planner would call back after information was received. Was able to get NPI number from Dr. Saavedra, will attempt to get in touch with [facility] again. This is to enable patient going to [place]. P: DCP to continue working on getting patient to [place]. Mirian Mireles RN/Digital Program Manager
[2021-05-01 09:14] LABS: Magnesium 1.6 mg/dL (1.6-2.3)
[2021-05-01 09:27] VITALS: O2SAT 97
[2021-05-01 11:00] VITALS: BP 157/74; PULSE 83; RESP 14; TEMP 36.7; O2SAT 97
--- NOTE | 2021-05-01 11:25 | P.DS_ITS ---
History of Present Illness History of Present Illness Date Patient Seen: 05/01/21 Chief complaint: Diarrhea/Dehydration/Increased Confusion Narrative: This is an 85-year-old female with a past medical history of alzheimer's dementia, obstructive sleep apnea, paroxysmal AFib on Eliquis, hypertension, hyperlipidemia who was brought into the emergency room by her daughter.? Patient is unable to participate in a subjective history due to her baseline dementia as well as an acute encephalopathy.? History was gathered over the phone per her .? The has noticed for the past week or so she has been less energetic compared to her usual baseline with increasing confusion and a decrease in her appetite.? She became worse because about 3 days ago she developed watery diarrhea which lasted for about 36 hours but resolved yesterday.? denies any overt fevers or chills.? The patient is unreliable but states that she feels okay at the moment, and is unaware as to why she would be in the hospital currently. In the emergency room, the patient's vital signs were unremarkable except for mild hypertension.? Laboratory evaluation revealed an unremarkable CBC, and chemistry panel.? Urinalysis showed 10-30 wbc's and many bacteria and was sent for culture.? COVID test was not performed. Head CT performed showed no acute pathology, Abd XR shows a non-specific bowel gas pattern. Discharge Providers Provider Date of admission: 04/27/21 13:01 Discharge Date: 05/01/21 Primary care physician: ASAD Garcia Consults: 04/26/21 05:21 Consult to Dietitian, Adult Routine Comment: Reason For Exam: BMI 23.2 04/26/21 06:22 Consult to Dietitian, Adult Routine Comment: Reason For Exam: decreasd po intake at home 04/26/21 07:32 Consult to Occupational Therapy Evaluate & Treat Comment: Physician Instructions: Evaluate and treat Consult to Physical Therapy Evaluate & Treat Comment: Physician Instructions: Evaluate and Treat 05/01/21 09:06 Consult to Speech Therapy Evaluate & Treat Comment: Physician Instructions: Evaluate and treat 05/01/21 09:44 Consult to Speech Therapy Evaluate & Treat Comment: Physician Instructions: Evaluate and treat Discharge provider: Maxine Saavedra MD Summary Hospital Course Discharge Diagnosis: 1. Acute metabolic encephalopathy 2. Hypokalemia 3. Alzheimer's dementia 4. Obstructive sleep apnea 5. Paroxysmal atrial fibrillation 6. Hypertension 7. Hyperlipidemia 8. Chronic Severe protein calorie malnutrition Hospital Course: Patient is an 85-year-old female who was admitted to the hospital for acute encephalopathy. Patient had been noted to have some diarrhea, she had increased confusion, and decreased appetite. The patient had no fever chills. She is quite confused and unable to provide any history. Initially her UA appeared to be positive. However her final urine culture grew mixed mark, there was no evidence of infection, blood cultures were negative. The patient became quite hypokalemic. This was replaced. She remain markedly confused. She required a maximum 2 person assist to move her. At times she was minimally able to eat food. Because of her progressive functional decline it was felt that she could not return home with her . He had initiated looking for long-term memory care for her. However this was still in process. As the patient's functional decline continue arrangements were made for her to go to nursing home where she will continue therapy until she can be placed into a long-term memory care unit. Patient remains markedly confused and is unable to participate with exam Status at Discharge Cognitive/behavioral status at discharge: at baseline, confused and calm Functional status at discharge: bed bound Overall status at discharge: patient is not back to baseline Exam Vital Signs (past 8 hours): - 05/01/21 07:00 05/01/21 08:42 05/01/21 09:27 Temperature 98.5 F Pulse Rate 82 82 Respiratory Rate 16 Blood Pressure 175/73 H 175/72 H Pulse Oximetry 92 97 Oxygen Delivery Method Room Air Oxygen Flow Rate 0 Narrative Exam Narrative: Confused elderly female lying in bed Resp Other: Decreased breath sounds bilaterally Cardio Other: Cardiac exam: Regular rate and rhythm normal S1-S2 GI Other: Abdomen: Soft nontender nondistended Extrem Other: Extremities: No edema Objective Labs Result Diagrams: 04/25/21 22:35 04/29/21 07:05 Labs: Laboratory Results - last 24 hr 05/01/21 08:45 Magnesium 1.6 PFSH Medical History Accident due to mechanical fall without injury Basal cell carcinoma of skin (~2010) Chickenpox Chronic anticoagulation Dementia (~2010) Glaucoma Hearing loss Hyperlipidemia 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 Social History marital status: details: to Terry number of children: 1 household members: spouse lives independently: No caregiver/support person: Yes ( Terry) housing: house other: one daughter, an RN, visits weekly Smoking Status: Former smoker alcohol intake: former Discharge Assessment & Plan Assessment and Plan Assessment: 1. Acute metabolic encephalopathy 2. Hypokalemia 3. Alzheimer's dementia 4. Obstructive sleep apnea 5. Paroxysmal atrial fibrillation 6. Hypertension 7. Hyperlipidemia 8. Chronic Severe protein calorie malnutrition Plan of Treatment: Discharge to nursing home Discharge Plan Discharge Plan Patient Disposition: SNF Transfer to: [facility] Consult as needed: Dental, Hearing, Mental health, Podiatry and Vision Discharge orders & Medications Prescriptions: Continued (DME) Handicap Placard Qty: 1 0RF Rx Instructions: Pt unable to walk 200 feet without stopping to rest. (DME) miscellaneous medical supply Misc See Rx Instructions .ROUTE .MEDSUPPLY Qty: 1 0RF Rx Instructions: Disabled Parking Permit miscellaneous medical supply Misc See Rx Instructions .ROUTE .COMPLEX Qty: 1 0RF Rx Instructions: Please dispense one Right knee pull-on sleeve, as insurance allows, to be worn as needed for right knee pain. latanoprost 0.005 % drops 1 drp EYE-BOTH DAILY Qty: 2.5 6RF Rx Instructions: 1 drop in each eye evening diltiazem HCl 120 mg capsule,extended release 24hr 120 mg PO QAM Qty: 90 3RF flecainide 50 mg tablet 50 mg PO Q12H Qty: 180 3RF losartan 25 mg tablet 25 mg PO DAILY Qty: 90 3RF Rx Instructions: Takes in PM (DME) [employer]pir[employer] Auto CPAP Qty: 1 0RF Dose Instruction: As directed Label Comments: Pressure: 7-14 DME: [facility] Rx Instructions: As directed Follow up/Referrals: Lizeth West ARNP [Primary Care Provider] - Discharge Health Status Multidrug resistant organism: No MDRO Diet/Activity/Treatments Diet: Low-sodium Liquid consistency: Pax Consistency Food texture: Soft [facility] Reason for rehabilitation: Recovery r/t decondition Rehab type: Physical therapy and Occupational therapy Discharge Data Primary Care Provider: Lizeth West
--- NOTE | 2021-05-01 11:54 | OT.IPNOTE ---
Attempted to see pt for OT treatment. Asked pt several times if she wanted to try to get up. Pt would look at OT each time and then turn her head away.
--- NOTE | 2021-05-01 11:54 | SLP.IPNOTE ---
Attempted to see pt for swallow evaluation at 11:40. Pt was sleeping when AUTOMOTIVE ENGINEERING TEACHER arrived and woke to verbal and tactile greeting. Pt was repositioned to upright position for swallow evaluation and AUTOMOTIVE ENGINEERING TEACHER attempted oral motor exam. Pt fell asleep during oral motor exam x3 and awoke to verbal cues, though it took her longer to wake up each time. Pt cannot complete PO trials at this time due to fatigue. NSG reported she has been lethargic today and is discharging at 14:00.
--- NOTE | 2021-05-01 11:58 | SLP.IPNOTE ---
Attempted swallow evaluation. Pt was too somnolent to participate. Will try again this afternoon.
[2021-05-01 12:56] LABS: COVID19 -Nasal RAPID Negative (Negative)
--- NOTE | 2021-05-01 13:11 | PT.IPTN ---
Current Diagnoses Urinary tract infection, site not specified (04/27/21) Physical Therapy Treatment Note M2 PT-IP Current Condition Start: 04/26/21 13:18 Freq: NEEDED Status: Discharge Protocol: Document 05/01/21 12:53 SP (Rec: 05/01/21 16:31 SP [id number]) Physical Therapy Current Condition Current Condition Evaluation Date 04/28/21 Treatment Diagnosis UTI M3 PT-IP Subjective Start: 04/26/21 13:18 Freq: NEEDED Status: Discharge Protocol: Document 05/01/21 12:53 SP (Rec: 05/01/21 16:31 SP [id number]) Subjective Physical Therapy Visit Type Type Treatment Note Visit Start Time 12:53 Visit Stop Time 13:11 Total Visit Minutes 18 Notes in room when arrived. OT provided 2nd person assist when needed. Number of CIS COORDINATOR Visits 1 Physical Therapy Visit Comments Patient Comments Pt alert when arrived. Unable complete audible understood responses to questions. Therapy Pain Assessment Pain When Pain Assessed During Mobility Pain Present Pain Present Pain Reported Location R knee Scale Used not quantified Description With Movement Pain Behaviors Holding Area Pain Management Techniques Modification of Treatment,Re- positioning M4 PT-IP Mobility and Gait Start: 04/26/21 13:18 Freq: NEEDED Status: Discharge Protocol: Document 05/01/21 12:53 SP (Rec: 05/01/21 16:31 SP [id number]) PT-Bed Mobility Assessment Supine to Sit Supine to Sit Maximum Assistance,1 Person Assistance,Head of Bed Elevated Sit to Supine Sit to Supine Maximum Assistance,2 Person Assistance Scooting Scooting to Edge of Bed Maximum Assistance Scooting Up and Down in Bed Maximum Assistance,Dependent PT-Transfer Assessment Comments Mobility Comments Pt elevated supine when arrived. Initially pt gazed and attempted to tell something but not understandable when asked if ok to work on mobility. OT arrived, provide 2nd person assist when needed. CIS COORDINATOR instructed BLE repositioning to remove pillow then toward EOB, max A BLE.Pt pulled from therapist hand with max support at upper body to right trunk to modified sit, support with initiation of each LE toward EOB, LUE WB on bed to assist trunk support. Pt moaned and pointed/ rubbing while bent R lateral knee so haulted mobility. Reassured we are supporting her, asked if continue mobility pt pulled from therapist hand to wt shift forward toward EOB, 2nd person assist for scoot toward EOB via transfer pad. Pt gripped therapist arm with scared/hurt facial expression so stopped, then pt sighed and relaxed Max A of 2. CIS COORDINATOR/ OT assisted pt return to supine upper body and BLE support onto bed with pt moaning, assuming pain. Provided pillows under BLE and tilted on R side for unweight bottom for skin integrity change of position (on modified L side when arrived). Elevated HOB and pt seemed relaxed with bed alarmed, call light and all needs in reach. in room when left. Was discussed pt leaving at 1400 for SNF. Gait Assessment Comments Gait Comments unable. PT-Balance Assessment Sitting Balance and Reactions Static Sitting Balance Ability Poor Dynamic Sitting Balance Ability Poor Comments Other Balance Tests/Deviations/Treatment pt required increased 2 person : support during attempt transfer to sit then had to stop due to assuming pain. See mobility comments. M5 PT-IP Objective Assessments Start: 04/26/21 13:18 Freq: NEEDED Status: Discharge Protocol: Document 04/26/21 10:05 AB (Rec: 04/26/21 13:34 AB [id number]) Orientation Orientation/Cognition Level of Alertness Confusional State Safety Awareness Decreased Safety Awareness Memory Description Short Term Impaired,Mop Man Impaired Gross Range of Motion Lower Extremity ROM Assessment Within Functional Limits Strength Lower Extremity Strength Hip 4-/5 Knee 3+/5 Muscle Tone Muscle Tone WNL Yes M6 PT-IP Treatment Start: 04/26/21 13:18 Freq: NEEDED Status: Discharge Protocol: Document 05/01/21 12:53 SP (Rec: 05/01/21 16:31 SP [id number]) Physical Therapy Treatment Education Education Provided Safety M7 PT-IP Assessment and Plan Start: 04/26/21 13:18 Freq: NEEDED Status: Discharge Protocol: Document 05/01/21 12:53 SP (Rec: 05/01/21 16:31 SP [id number]) PT Summary Assessment and Plan Potential Rehabilitation Potential Fair Status of Condition at Evaluation Stable Summary Impairments Pain,ROM,Strength,Bed Mobility ,Activity Tolerance Progress Towards Goals Slow Progress due to Pain,Slow Progress due to Activity Tolerance,Slow Progress - Other Assessment Summary Pt did not tolerated much mobility, slow progression due to cognitive deficits and nonverbal cues of anxiousness or pain. Pt scheduled for transportation at 1400. Max A x1 sup>modified sit with nonverbal moans of assuming pain, see mobility comments. Max A x2 return to supine, scoot up in bed. Pt not verbalizing much and when does not understandable. Unsure if pt will be able to tolerate skilled therapy, will continue to assess progress. Goals Bed Mobility Goal Minimal Assistance Transfer Goal Minimal Assistance,Front Wheeled Walker Gait Goal Minimal Assistance,Front Wheel Walker Gait Distance 50 Other Goals improve bed mobility, transfers using FWW, ambulation using FWW 100 ft SBA Days to Meet Goals 10 Frequency of Treatment Frequency Of Treatment Once a Day Treatment Plan Physical Therapy Treatment Plan Bed Mobility Training,Transfer Training,Gait Training, Therapeutic Exercise,Balance Retraining,Discharge Planning, Hot or Cold Pack,Neuromuscular Re-ed,Coordination Retraining ,Manual Therapy Other Recommendations and Next Treatment bed mob, sitting at EOB, LE ex Focus . Precautions Other Precautions falls Recommendations To Nursing Amount of Assist Needed Mechanical Lift Discharge Recommendations PT Discharge Recommendations SNF Rehab Transportation Needs at Discharge Stretcher/Ambulance
--- NOTE | 2021-05-01 13:12 | OT.IPNOTE ---
Attempted to see pt with TURNER SPLITTER MACHINE OPERATOR and pt not able to get all the way up to edge of the bed at this time. No charge as OT was mainly SBA.
--- NOTE | 2021-05-01 13:29 | CM.DPNOTE ---
Faxed final inform. of snf referral per Magy to [facility]. Received fax conf. Abby Agustin CM Assist.
--- NOTE | 2021-05-01 13:57 | PC.NURSE ---
A&Ox0. Unable to give verbal responses. Will shake head no or attempt to move away with painful stimulus. Refused to eat or drink much today.Patient had a few bites of her breakfast. Was unable to take whole pills without chewing them, and spit out her capsule medication she could not chew. This bid writer crushed the medications that are able to be crushed and she tolerated taking them apple sauce. Speech came to evaluate but patient was unable to remain awake for them. Incontinent b&b. Brief and bedding changed. Snoring while sleeping as well as when awake. Iv removed. Discharge information given to transport. Report called. off of unit at 1300.
== END 2021-05-01 14:00 | DRG 70 ==
LOC: ED 04-26 05:12 → AC 04-26 05:33
PROVIDERS: Emergency Medicine; Family Medicine; Internal Medicine; Nurse Practitioner Family; Admitting Provider Nurse Practitioner Family; Emergency Provider Emergency Medicine; Family Provider Family Medicine; PCP Nurse Practitioner; Referring Provider Emergency Medicine; Visit Provider Nurse Practitioner Family
DX: G93.41 Metabolic encephalopathy (principal); E43 Unspecified severe protein-calorie malnutrition; G30.9 Alzheimer's disease, unspecified; F02.80 Dementia in other diseases classified elsewhere, unspecified severity, without behavioral disturbance, psychotic disturbance, mood disturbance, and anxiety; I48.0 Paroxysmal atrial fibrillation; E87.6 Hypokalemia; I10 Essential (primary) hypertension; E78.5 Hyperlipidemia, unspecified; Z20.822 Contact with and (suspected) exposure to COVID-19; Z66 Do not resuscitate; Z68.23 Body mass index [BMI] 23.0-23.9, adult; Z79.01 Long term (current) use of anticoagulants; Z87.891 Personal history of nicotine dependence
CPT/HCPCS: 36415; 70450; 74019; 80048; 80053; 81001; 82550; 83605; 83690; 83735; 84145; 84484; 85007; 85025; 87040; 87086; 87635; 94760; 96361; 96365; 97162; 97166; 97530; 97535; 99284; C9803; G0378; J0696; J1650